=== PATIENT | female | born 1950 | race Caucasian/White ===

== ENCOUNTER 2018-04-02 09:30 | Inpatient (IN) ==
[2018-04-02] MEDS ORDERED: Heparin Drip 25,000 UNIT/250 ML BAG IV.CONT PRN (12:27)
[2018-04-02 16:27] LABS: Activated Partial Thrombo Time 46.9 sec (23.4-31.7); INR 1.1 Ratio; Prothrombin Time 10.7 sec (9.8-11.6)
[2018-04-02 16:52] LABS: Troponin I 8.43 ng/mL (0.02-0.05)
--- NOTE | 2018-04-02 16:54 | P.HPIM ---
History of Present Illness Primary Care Physician: Virgie Kiran Chief Complaint: cp History of Present Illness: 67yo f presents with acute onset of severe stabbing midsternal chest pain that awoke her from a nap after she had eaten some spagetti. It was severe and radiated to her back and left neck and down her left arm with left arm numbness. She was diaphoretic, and nauseated, and she took a lortab, then a zantac thinking it was gerd, and then xanax all without relief. Then she took a hot shower felt better but the pain persisted for almost 2 hours, when she presented to the ER at [facility] and found to have a toponin of 6.[address] elevation on her ekgs. Patient was started on a heparin gtt and case discussed with her sales and catering coordinator, we are asked for admission to cardiac unit. Patient states she has had severe stress due to her sisters critical illness recently, but she denies sal[place], palpitations, le edema, orthopnea or productive cough of late. 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 PMHx : costochondritis, htn, dyslipidemia, anxiety, nonTB lung infection, gerd PSXHX: denies sx SOC HX: smokes 1/2 ppd, denies etoh, FAM HX: moms siblings all of CAD, father of bladder/prostate ca Inpatient Certification Inpatient Certification: I certify that the inpatient services were ordered in accordance with Medicare regulations governing the order. This includes certification that hospital inpatient services are reasonable and necessary and in the case of services not specified as inpatient-only under 42 CFR 419.22(n), that they are appropriately provided as inpatient services in accordance to with the 2-midnight benchmark under 43 CFR 412.3(e) Estimated Total Length of Stay (Days): 2 Plans for Post Hospital Care: Home Review of Systems Review of Systems: all other systems reviewed are negative [facility] Social History Social History Substance History: No History of Abuse Second Hand Smoke Exposure: Yes Smoking Status: Current some day smoker Tobacco Type: Cigarettes How Often Do You Have a Drink Containing Alcohol: Never Immunization History Tetanus Immunization: Never Vaccinated Hx Influenza Vaccine This Season: No Medications and Allergies Allergies Allergy/AdvReac Type Severity Reaction Status Date / Time alcohol Allergy Severe Vomiting Verified 04/02/18 10:03 cephalexin Allergy Severe ANAPHYLAXIS Verified 04/02/18 10:03 Influenza Virus Vaccines Allergy Severe Swelling Verified 04/02/18 10:03 levofloxacin Allergy Severe Hives Verified 04/02/18 10:03 meperidine Allergy Severe Hives Verified 04/02/18 10:03 cyclobenzaprine Allergy Intermediate shaky leg Verified 04/02/18 10:03 [From Flexeril] syndrome loratadine Allergy Mild shaky leg Verified 04/02/18 10:03 syndrome tetanus toxoid, adsorbed Allergy Mild Swelling Verified 04/02/18 15:09 clindamycin Allergy Unknown Hives Verified 04/02/18 15:09 diphtheria, pertussis, Allergy Swelling Verified 04/02/18 10:03 tetanus vacc Iodinated Contrast- Oral and Allergy Burning Verified 04/02/18 10:03 IV Dye loracarbef [From Lorabid] Allergy Anaphylaxis Verified 04/02/18 10:03 Penicillins Allergy Hives Verified 04/02/18 10:03 sertraline [From Zoloft] Allergy Hives Verified 04/02/18 10:03 Sulfa (Sulfonamide Allergy Rash Verified 04/02/18 10:03 Antibiotics) Home Medications Medication Instructions Recorded Confirmed Type alprazolam [Xanax] 1 mg PO QID PRN 04/02/18 04/02/18 History hydrocodone-acetaminophen 1 tab PO QID PRN 04/02/18 04/02/18 History ibuprofen 800 mg PO BID PRN 04/02/18 04/02/18 History lisinopril 20 mg PO DAILY 04/02/18 04/02/18 History metoprolol tartrate 25 mg PO HS 04/02/18 04/02/18 History montelukast 1 tab PO DAILY 04/02/18 04/02/18 History ranitidine HCl [Zantac] 150 mg PO BID 04/02/18 04/02/18 History Active Medications: Active Medications Acetaminophen (Tylenol) 650 mg PO Q4H PRN PRN Reason: Temp > 100.4 Al Hydroxide/Mg Hydroxide (Milk Of Magnesia Liq) 30 ml PO Q12H PRN PRN Reason: Mild Constipation Bisacodyl (Dulcolax Supp) 10 mg RECTAL DAILY PRN PRN Reason: SEVERE CONSITIPATION Heparin Sodium/Dextrose (Heparin/D5w 25,000 U/250 Ml) 25,000 unit in 250 mls @ 0 mls/hr IV.CONT TITRATE PRN; Protocol PRN Reason: Per Protocol Lactulose (Lactulose Liq) 30 ml PO DAILY PRN PRN Reason: SEVERE CONSITIPATION Ondansetron HCl (Zofran Inj) 4 mg IV.PUSH Q6H PRN PRN Reason: NAUSEA OR VOMITING Senna/Docusate Sodium (Serena-Colace) 1 tab PO BID MARYLOU Sennosides (Senokot) 17.2 mg PO Q12H PRN PRN Reason: Moderate Constipation Sodium Chloride (Ns Flush) 2 ml IV.FLUSH BID MARYLOU Sodium Chloride (Ns Flush) 2 ml IV.FLUSH PRN PRN PRN Reason: FLUSH AFTER USING IV ACCESS Physical Exam Vital signs: Last Vital Signs Pulse 58 L 04/02/18 16:00 Pulse Ox 99 04/02/18 13:46 Intake & Output 03/31/18 04/01/18 04/02/18 04/03/18 06:59 06:59 06:59 06:59 Weight 90.5 kg WDWN 67yo w female aaox3 nad, flat affect heent ncat, perr, eomi, sclera anicteric, omm, post pharynx clear neck supple no jvd trachea midline, thyroid smooth not enlarged anterior chest wall no mass min tenderness heart s1s2 reg, bradycardic lungs decreased excurusion and decreased air movment w trace crackles right base , no wheeze, no dullness to percussion back exam no cva tenderness to palpation lymph nodes no inguinal no axillary no cervical lad ext no clubbing cyanosis or edema no calf tenderness, pulses +2 skin no rash, sores or wounds noted, good turgor Caprini VTE Risk Assessment Caprini VTE Risk Assessment: Moderate/High Risk (score >= 2) Caprini Risk Assessment Model: Point Value = 1 Point Value = 2 Point Value = 3 Point Value = 5 Age 41-60 Minor surgery BMI > 25 kg/m2 Swollen legs Varicose veins or History of unexplained or recurrent spontaneous Oral contraceptives or hormone replacement Sepsis (< 1 month) Serious lung disease, including pneumonia (< 1 month) Abnormal pulmonary function Acute myocardial infarction Congestive heart failure (< 1 month) History of inflammatory bowel disease Medical patient at bed rest Age 61-74 Arthroscopic surgery Major open surgery (> 45 min) Laparoscopic surgery (> 45 min) Malignancy Confined to bed (> 72 hours) Immobilizing plaster cast Central venous access Age >= 75 History of VTE Family history of VTE Factor V Leiden Prothrombin [id number] Lupus anticoagulant Anticardiolipin antibodies Elevated serum homocysteine Heparin-induced thrombocytopenia Other congenital or acquired thrombophilia Stroke (< 1 month) Elective arthroplasty Hip, pelvis, or leg fracture Acute spinal cord injury (< 1 month) Prophylaxis Regimen: Total Risk Factor Score Risk Level Prophylaxis Regimen 0-1 Low Early ambulation 2 Moderate Order ONE of the following: *Sequential Compression Device (SCD) *Heparin 5000 units SQ BID 3-4 Higher Order ONE of the following medications: *Heparin 5000 units SQ TID *Enoxaparin/Lovenox 40 mg SQ daily (WT < 150 kg, CrCl > 30 mL/min) *Enoxaparin/Lovenox 30 mg SQ daily (WT < 150 kg, CrCl > 10-29 mL/min) *Enoxaparin/Lovenox 30 mg SQ BID (WT < 150 kg, CrCl > 30 mL/min) AND/OR *Sequential Compression Device (SCD) 5 or more Highest Order ONE of the following medications: *Heparin 5000 units SQ TID (Preferred with Epidurals) *Enoxaparin/Lovenox 40 mg SQ daily (WT < 150 kg, CrCl > 30 mL/min) *Enoxaparin/Lovenox 30 mg SQ daily (WT < 150 kg, CrCl > 10-29 mL/min) *Enoxaparin/Lovenox 30 mg SQ BID (WT < 150 kg, CrCl > 30 mL/min) AND *Sequential Compression Device (SCD) Assessment and Plan Plan ACS w NSTEMI - admit, asa, bb as tolerated hold for bradycardia, heparin gtt per protocol, statin and tele monitoring, cardiology consult, prob cath, fu echo, fasting lipids am HTN - cont lili NON TB lung infection - chronic not on tx currently fu w pulmonology GERD - zantac FIBROMYALGIA - pain control as tolerated TOBACCO ABUSE/NICOTINE ADDICTION - cessation couseling and nicoderm prn when stable. OBESITY - bmi 34 - outpt fu when stable dvt prophylaxis - heparin gtt dispo- cic, pending clinical course H&P: Quality VTE Deep Vein Thrombosis/Pulmonary Embolism Present on Admission: No
[2018-04-02 17:05] LABS: Creatine Kinase MB 40.8 ng/mL (0.5-3.6)
[2018-04-02 17:09] LABS: CKMB Percent 7.3 % (0.0-4.0)
[2018-04-02] MEDS ORDERED: Heparin/NS PF Inj 1,000 ML ONE (17:38)
[2018-04-02] MEDS ORDERED: Lidocaine PF 1% Inj 30 ML Vial ONE (17:39)
[2018-04-02] MEDS ORDERED: fentaNYL Citrate Inj 100 MCG/2 ML Ampul ONE (17:39)
[2018-04-02] MEDS ORDERED: Heparin 10,000 UNITS/10 ML Vial (for IV use) ONE (17:39)
[2018-04-02] MEDS ORDERED: Hydrocortisone Sod Succinate 100 MG Vial ONE (17:39)
[2018-04-02] MEDS ORDERED: Famotidine PF Inj 20 MG/2 ML Vial ONE (17:39)
[2018-04-02] MEDS ORDERED: Iohexol 350 MG/ML 50 ML Vial (for Cath Lab) IVCONTRAST ONE (18:00)
--- NOTE | 2018-04-02 18:36 | CATHPROC ---
[facility] HIS Report Study Information Study Number Admission Scheduled Start Study Start [id number] Apr 02 2018 3:25PM 04/02/2018 Apr 02 2018 5:20PM [place] [facility] Cardiac Catheterization Admit Source Facility Department Other [facility] Physician and Clinical Staff Initial Gary Morales [employer] Mady Esquivel,RN Recorder Ana Noyola,RT(R) Scrub Bharati Whitaker,RAFIQ TECH2 Procedures Performed Procedure Location (Site) Vessel Name Coronary Angiograms LCA Left Coronary Coronary Angiograms RCA Right Coronary L Heart Cath Wire insertion Radial (right) Radial Art. Equipment Time Assistant Teaching Professor Description Size Mfg Part Number Used/Scraped TRANSDUCER, TRUWAVE [id number] 18:05 [employer] MIRELES * Used W/STOCKCOCK *[id number] *[id number] *[id number] *[id number] 18:05 [employer] BLANKET,WARM AIR CCL * Used *[id number] 18:05 [employer] PACK, CCL CUSTOM * Used *[id number] 18:05 [employer] SUPPORT, ARTERIAL ADULT [id number] *[id number] Used BAND, RADIAL COMPRESSION TR [id number] 18:15 [employer] 24CM Used SHORT 24 *[id number] 18:05 [employer] WIRE, EXCHANGE 260CM 3MMJ 260CM Used *[id number] 18:05 NAMIC MANIFOLD, 4 PORT * Used *[id number] 18:05 [employer] OMNIPAQUE, 350 MG, 150ML 150ML [id number] Used SHEATH, FR6 TRANSRADIAL [id number] 18:05 [employer] MEDICAL FR 6 Used SLENDER 10CM *[id number] History: Current Medications Medication Dosage/Unit Route Frequency Last Date/Time Taken Beta Rusty LISINOPRIL HEPARIN History: Allergies Allergy Reaction Influenza Virus Vaccines Swelling alcohol Vomiting cephalexin ANAPHYLAXIS clindamycin Hives tetanus toxoid, adsorbed Swelling loratadine shaky leg syndrome meperidine Hives penicillin G levofloxacin Hives LORABID Iodinated Contrast- Oral and IV Burning Dye Penicillins Hives Sulfa (Sulfonamide Antibiotics) Rash diphtheria, pertussis, tetanus Swelling vacc loracarbef Anaphylaxis sertraline Hives cyclobenzaprine shaky leg syndrome History: Risk Factors Family History of Hypertension Dyslipidemia Previous CT Previous Heart Failure Premature CAD Yes No Yes No No Prior Valve Prior PCI Prior CABG Surgery No No No Cerebrovascular Peripheral Artery Chronic Lung On Dialysis Diabetes Disease Disease Disease No No No No No History: Symptoms/Diagnosis Selection Items Chest pain SOB History: Stress Tests Stress or Imaging Studies Performed Yes Standard Exercise Stress Test No Stress Echo No Stress Test SPECT Stress Test SPECT Result Stress Test SPECT Ischemia Risk/Extent Yes Positive Intermediate Stress Test CMR No Cardiac CTA Coronary Calcium Score No No History: Other Disease Selection Items HTN History: Other Current Smoker Method Yes Cigarettes Labs Hgb (g/dl) Hct (%) WBC (l/cumm) Platelets (thousands) 11.60-17.00 35.00-51.00 4.00-11.00 150.00-450.00 15.4 48.2 10.8 223 Glucose (mg/dl) BUN (mg/dl) Creatinine (mg/dl) BUN:Creatinine (1:x) 74.00-106.00 7.00-18.00 0.50-1.30 10.00-20.00 79 12 0.7 17.1 Na (meq/l) K (meq/l) 136.00-145.00 3.50-5.10 143 4.1 INR (PTT:PT) 0.90-1.10 1 Troponin I (ng/ml) CPK-MB (ng/ML) 0.02-0.05 0.50-3.60 8.43 53.2 Medication Medication Total Dose (Bolus/Oral) Medication Total Dosage/Unit 1% XYLOCAINE 20 mL BENADRYL 25 mg FENTANYL 100 mcg OXYGEN 2 l/min PEPCID 20 mg RADIAL COCKTAIL 5 mL (Bolus) SOLU-CORTEF 100 mg VERSED 1 mg Medications (Bolus/Oral) Medication Time Given Dosage/Unit Administered By Reason PEPCID 04/02/2018 5:44:36 PM 20 mg Adamy, Mady 20 mg PEPCID given by Mady Esquivel RN in Right Antecubital via Peripheral IV. BENADRYL 04/02/2018 5:45:37 PM 25 mg Adamy, Mady 25 mg BENADRYL given by Mady Esquivel, JON in Right Antecubital via Peripheral IV. SOLU-CORTEF 04/02/2018 5:46:01 PM 100 mg Adamy, Mady 100 mg SOLU-CORTEF given by Mady Esquivel RN in Right Antecubital via Peripheral IV. FENTANYL 04/02/2018 5:55:23 PM 50 mcg Mady Esquivel 50 mcg FENTANYL given by Mady Esquivel RN via Peripheral IV. 1% XYLOCAINE 04/02/2018 6:00:18 PM 20 mL Gary Ramos 20 mL 1% XYLOCAINE given by Gary Ramos in Right Radial via Subcutaneous. VERSED 04/02/2018 6:00:51 PM 1 mg Mady Esquivel 1 mg VERSED given by Mady Esquivel RN via Peripheral IV. FENTANYL 04/02/2018 6:01:03 PM 50 mcg Mady Esquivel 50 mcg FENTANYL given by Mady Esquivel RN via Peripheral IV. Ntg 200mcg Verapamil 2.5mg Heparin RADIAL COCKTAIL 04/02/2018 6:05:21 PM 5 mL (Bolus) Mady Esquivel 2000U 5 mL (Bolus) RADIAL COCKTAIL given by Mady Esquivel RN via Radial. Using [Solution Name]. Reason: Ntg 200mcg Verapamil . 3600 heparin OXYGEN 04/02/2018 6:06:24 PM 2 l/min Mady Esquivel 2 l/min OXYGEN given by Mady Esquivel RN via Nasal. Medication (Drip) Medication Time Given Dosage/Unit Concentration/Unit Diluent (ml) Solution IV Solutions 04/02/2018 5:38:05 PM 0 mL (IV) 500 NaCl .9 IV Solutions given by Mady Esquivel RN in Right Antecubital via Peripheral IV. Pump/Drip Flow = 20 ml/hr using NaCl .9. Initial Case Assessment Initial Case Assessment Cardiovascular HR Rhythm NIBP 65 reg 144/79 Edema Present Skin color Skin None Normal Warm Circulatory - Right Pulses Dorsalis Pedis Femoral Radial 2 2 2 Scale (0,1,2,3,4,d) Scale (0,1,2,3,4,d) Circulatory - Lower Extremities Color Lower Right Normal Neurological State Oriented to time-place- Alert Moves all extremities person Respiration - General Respiration Rate SpO2 (%) (B/min) 10 98 Final Case Assessment Cardiovascular HR Rhythm NIBP 62 reg 116/71 Edema Present Skin color Skin None Normal Warm Circulatory - Right Pulses Dorsalis Pedis Femoral Radial 2 2 2 Scale (0,1,2,3,4,d) Scale (0,1,2,3,4,d) Circulatory - Lower Extremities Color Lower Right Normal Neurological State Oriented to time-place- Alert Moves all extremities person Respiration - General Respiration Rate SpO2 (%) O2 (lpm) (B/min) 10 98 2 Chronological Log Time Study Chronological Log 17:30:51 Patient arrived via Bed. 17:37:56 Patient Name, D.O.B, / Armband Verified By R.N. 17:37:57 Consent signed by the physician and the patient and verified by the [facility] staff. 17:37:58 Pre-op and post- op instructions given; patient acknowledges understanding of instructions. 17:37:59 Verbal Stimulation=2 Physical Stimulation=2 Airway=2 Respiration=2 TOTAL=8. (0=absent, 1=li mited, 2=present) 17:38:00 Allens test performed on the right radial and ulnar artery. 17:38:01 Patient has been NPO for Less than 6Hrs. 17:38:02 Skin Breakdown-none 17:38:03 Patient Warmer Placed on the Table. 17:38:04 A # 20 IV was noted in the Antecubital (right). Grade = 0 IV Solutions given by Mady Esquivel RN in Right Antecubital via Peripheral IV. Pump/Drip Remy w = 20 ml/hr using NaCl 17:38:05 .9. 17:38:07 History and physical on the chart or being dictated. 17:38:08 Assessment: Initial Case Vitals capture started with the following parameters, Patient=Adult, Interval=5 min, Initial Pr yrrgvi=998 mmHg, 17:38:10 Deflation Rate=5 mmHg, Cuff placed on left Arm 17:39:01 HR=65 bpm, IFUZ=064/77 mmhg, SpO2=97.0 %, Resp=9 B/min, Pain=0, Antony=10, Villasenor=2 17:44:02 HR=66 bpm, UCOA=860/79 mmhg, SpO2=97.0 %, Resp=9 B/min, Pain=0, Antony=10, Villasenor=2 17:44:36 20 mg PEPCID given by Mady Esquivel, JON in Right Antecubital via Peripheral IV. Assessment: Initial Case, HR=65 BPM, Rhythm=reg, MXRA=818/79 mmhg, Edema=None, Color=Normal, Sk in = Warm Right Pulses: [place] Ped=2, Femoral=2, Radial=2 17:44:45 Lower Right Extremities: Color=Normal Neurological: State=Alert, Ox3, MIRAMONTES Respiration: Resp=10 B/min, SpO2=98 % 17:45:00 Reference ECG taken 17:45:09 MD arrived. 17:45:37 25 mg BENADRYL given by Mady Esquivel, RN in Right Antecubital via Peripheral IV. 17:46:01 100 mg SOLU-CORTEF given by Mady Esquivel, RN in Right Antecubital via Peripheral IV. 17:49:01 HR=68 bpm, VNRP=989/73 mmhg, SpO2=98.0 %, Resp=15 B/min, Pain=0, Antony=10, Villasenor=2 17:49:17 Right Radial and groin(s) prepped with 2% chlorhexidine, and draped after a 3 min. waiting time. 17:54:03 HR=64 bpm, SQUA=726/111 mmhg, SpO2=98.0 %, Resp=14 B/min, Pain=0, Antony=10, Villasenor=2 17:54:14 Pressure channel 1 zeroed. 17:55:23 50 mcg FENTANYL given by Mady Esquivel, RN via Peripheral IV. Time Out. Correct patient, correct procedure, correct physician, labs, allergies, and equipment verified with photo lab specialist 17:58:31 team present. Fire risk assesment completed (see hard stop sheet for coding). Time Out Conc urred by and individual staff in procedure. 17:58:46 Case Start 17:58:48 Verbal Stimulation=2 Physical Stimulation=2 Airway=2 Respiration=2 TOTAL=8. (0=absent, 1=li mited, 2=present) 17:59:02 HR=62 bpm, FWBG=025/81 mmhg, SpO2=97.0 %, Resp=17 B/min, Pain=0, Antony=10, Villasenor=2 18:00:18 20 mL 1% XYLOCAINE given by Gary Ramos in Right Radial via Subcutaneous. 18:00:51 1 mg VERSED given by Mady Esquivel RN via Peripheral IV. 18:01:03 50 mcg FENTANYL given by Mady Esquivel RN via Peripheral IV. 18:03:54 HR=61 bpm, ESIK=281/69 mmhg, SpO2=92.0 %, Resp=18 B/min, Pain=0, Antony=10, Villasenor=2 18:04:41 Access site was Right Radial Artery . 18:04:46 A wire was inserted via Radial (right). A SHEATH, FR6 TRANSRADIAL SLENDER 10CM FR 6 was advanced into the Radial (right) using the Perc utaneous 18:04:55 technique. 5 mL (Bolus) RADIAL COCKTAIL given by Mady Esquivel RN via Radial. Using [Solution Name]. Re ason: Ntg 200mcg 18:05:21 Verapamil . 3600 heparin 18:06:24 2 l/min OXYGEN given by Mady Esquivel RN via Nasal. A JR 4.0 INFINITI CATHETER FR 5 was advanced over a wire. OMNIPAQUE, 350 MG, 150ML 150ML was us ed for 18:06:25 injections. Recorded Pressure: LV, HR=67, Condition=Condition 1 18:07:40 (Left Ventricle) LV 111/9/17 Recorded Pressure: LV, Ao, HR=64, Condition=Condition 1 18:07:52 (Left Ventricle) LV 110/10/19, (Aorta) Ao 104/56/77 18:08:46 The RCA was injected and visualized at various angles. OMNIPAQUE, 350 MG, 150ML 150ML used . Recorded Pressure: Ao, HR=64, Condition=Condition 1 18:08:52 (Aorta) Ao 94/57/73 18:08:53 HR=63 bpm, FABV=714/50 mmhg, SpO2=91.0 %, Resp=11 B/min, Pain=0, Antony=10, Villasenor=2 After removing the current catheter a JL 3.5 INFINITI CATHETER FR 5 was advanced over a WIRE, E XCHANGE 260CM 18:10:12 3MMJ 260CM. 18:11:32 The LCA was injected and visualized at various angles. OMNIPAQUE, 350 MG, 150ML 150ML used . 18:13:48 Catheter was removed 18:13:55 HR=66 bpm, MHPQ=716/62 mmhg, SpO2=93 %, Resp=12 B/min, Pain=0, Antony=10, Villasenor=2 18:18:52 HR=63 bpm, JWNG=559/71 mmhg, SpO2=97.0 %, Resp=12 B/min, Pain=0, Antony=10, Villasenor=2 18:19:09 Case End (Physician broke scrub) Assessment: Final Case, HR=62 BPM, Rhythm=reg, NIST=593/71 mmhg, Edema=None, Color=Normal, Sk in = Warm Right Pulses: [place] Ped=2, Femoral=2, Radial=2 18:19:11 Lower Right Extremities: Color=Normal Neurological: State=Alert, Ox3, MIRAMONTES Respiration: Resp=10 B/min, SpO2=98 %, O2=2 lpm 18:22:17 Catheter(s) removed without difficulty Radial Compression Device Used. 11 mLs of air placed in BAND, RADIAL COMPRESSION TR SHORT 24 24CM. Affected 18:22:19 hand 98 % O2 saturation. 18:22:34 Sterile dressing applied to site 18:22:35 No case complications noted. 18:22:36 Cine recording checked. 18:22:36 Bedside Report will be given. 18:22:40 A Left Heart Cath was performed. 18:22:45 Clinical correlaton risk stratification. 18:23:55 HR=61 bpm, WJXE=965/70 mmhg, Resp=13 B/min 18:28:58 HR=69 bpm, MICI=158/70 mmhg, Resp=17 B/min, Pain=0, Antony=10, Villasenor=2 18:33:59 HR=61 bpm, IHKD=457/69 mmhg, Resp=17 B/min, Pain=0, Antony=10, Villasenor=2 End Study - Contrast Media Used In Study Contrast Total Opened (mL) Total Used (mL) Total Wasted (mL) Omnipaque 350 30 30 0 End Study - Maximum Contrast Load Max Contrast Load (mL) 646.4 End Study - Radiation Exposure Fluoro Time Fluoro Dose (mGy) Cine Dose (uGym2) (minutes) 1.3 663 [id number] End Study - Sheaths Sheaths Pulled By Sheath Hold Time (min) Bharati Whitaker End Study - Patient Disposition Complications Transferred To No Critical Care Bed
[2018-04-02] MEDS ORDERED: Metoprolol Tartrate 25 MG Tablet PO SCH (21:00)
[2018-04-02] MEDS: Famotidine 20 MG Tablet PO SCH (21:42)
[2018-04-02] MEDS: Metoprolol Tartrate 25 MG Tablet PO SCH (21:43)
[2018-04-02] MEDS: Senna/Docusate Sodium 8.6/50 MG Tablet PO SCH (21:46)
[2018-04-02 23:24] LABS: Troponin I 5.47 ng/mL (0.02-0.05)
[2018-04-02 23:37] LABS: Creatine Kinase MB 30.3 ng/mL (0.5-3.6)
[2018-04-02 23:45] LABS: CKMB Percent 6.3 % (0.0-4.0)
[2018-04-03] MEDS: Heparin Drip 25,000 UNIT/250 ML BAG IV.CONT PRN ×2 (01:48→22:45)
--- NOTE | 2018-04-03 03:40 | MB ---
cc: Gary Ramos DO DATE: 04/02/2018 REASON FOR CONSULTATION: Chest pain. HISTORY OF PRESENT ILLNESS: Linda Chaudhary is a pleasant 67-year-old female who sees my partner, Dr. Wylie, in the office and presented to [facility] Emergency Room due to chest pain. She had onset of acute, severe, stabbing midsternal chest pain that woke her up from a nap after she had eaten some spaghetti. It was severe and radiated to the left side of her neck and down her left arm, including left arm numbness. She was diaphoretic and nauseated at the time. She took a Lortab, then a Zantac, without relief. She took a hot shower, which made her feel better, but the pain persisted for almost 2 hours and so she presented to the emergency room. She was found to have an elevated troponin of 6.21 and was started on a heparin drip. She was transferred to [facility] for consideration of cardiac catheterization. She previously had a stress test and echo in our office in December with the stress test showing no ischemia. PAST MEDICAL HISTORY: 1. Costochondritis. 2. Hypertension. 3. Dyslipidemia. 4. Anxiety. 5. Gastroesophageal reflux disease. PAST SURGICAL HISTORY: Denies. ALLERGIES: IODINE, PENICILLIN, SULFA, ALCOHOL, CEPHALEXIN, CLINDAMYCIN, TETANUS TOXOID, DIPHTHERIA PERTUSSIS TETANUS VACCINE, LORACARBEF, LORATADINE, ZOLOFT, MEPERIDINE, FLEXERIL, LEVOFLOXACIN. MEDICATIONS: 1. Lisinopril 20 mg daily. 2. Hydrocodone/acetaminophen 10/325 mg every 6 hours as needed. 3. Ibuprofen 800 mg b.i.d. as needed. 4. Xanax 1 mg 4 times a day as needed. 5. Metoprolol tartrate 25 mg every night. 6. Ranitidine 150 mg b.i.d. 7. Montelukast 10 mg daily. FAMILY HISTORY: Multiple people have had premature coronary artery disease within the family. SOCIAL HISTORY: The patient smokes half a pack of cigarettes a day. Denies alcohol. REVIEW OF SYSTEMS: Fourteen systems were reviewed including osteopathic. Pertinent positives and negatives above, otherwise negative. PHYSICAL EXAMINATION: VITAL SIGNS: Temperature 98.4, heart rate 61, blood pressure 112/55, respirations 17, pulse ox 99% on 1.5 liters. GENERAL: The patient appears well, in no acute distress, alert, awake and oriented x 3. HEENT: Extraocular muscles intact. Mucous membranes moist. NECK: Supple. No JVD at 45 degrees. No carotid bruits heard bilaterally. Carotid upstroke is brisk in nature. HEART: Regular rate and rhythm. Positive first and second heart sounds with no noted murmurs, gallops or rubs. LUNGS: Clear to auscultation bilaterally. No wheezes, rales or rhonchi. ABDOMEN: Soft, nontender, nondistended. No organomegaly noted. EXTREMITIES: Show no clubbing, cyanosis or edema. Femoral and distal pulses intact bilaterally. NEUROLOGIC: No focal deficits. SKIN: Warm, dry and intact. OSTEOPATHIC: No kyphoscoliosis or lordosis. LABORATORY DATA: Hemoglobin 15.4, hematocrit 48.2, platelets 223. Potassium 4.1, BUN 12, creatinine 0.7. Troponin 8.43. Electrocardiogram (04/02/2018 at 10:37): Sinus rhythm, first-degree AV block, nondiagnostic Q-waves inferiorly. IMPRESSIONS: 1. Non-ST elevation myocardial infarction. 2. Chest pain concerning for coronary insufficiency. 3. Obesity with a body mass index of 34.2. 4. Tobacco abuse. RECOMMENDATIONS: 1. Ms. Chaudhary presented with chest pain, which is not typical for coronary insufficiency, but definitely concerning as it radiated to her left side of her neck and down her left arm with numbness. Her troponins are elevated. 2. Because of this, she will be recommended cardiac catheterization. Risks, benefits and alternatives were discussed with her and her son. 3. We will check a 2-D echo to look at her overall left ventricular function, cardiac structure and possible valvulopathies. 4. Further recommendations will be made after coronary visualization. 5. I spoke to her for greater than 3 minutes about tobacco cessation. Thank you for allowing me to see Linda Chaudhary. If there are any questions, please do not hesitate to call. Gary Ramos, DO RUCKER/aiden/emory , 02:00 AM , 02:10 AM
--- NOTE | 2018-04-03 04:11 | MA ---
cc: Gary Ramos DO DATE: 04/02/2018 PROCEDURE: Left heart catheterization, coronary angiogram, moderate sedation 20 minutes. PREPROCEDURE DIAGNOSES: Non-ST elevation myocardial infarction, chest pain concerning for coronary insufficiency. POSTPROCEDURE DIAGNOSES: Multivessel coronary artery disease for consideration of coronary artery bypass grafting. MEDICATIONS: Solu-Cortef 100 mg, Pepcid 20 mg, Benadryl 25 mg, fentanyl 100 mcg, Versed 1 mg, verapamil 2.5 mg, nitro 200 mcg, heparin 3600 units. CONTRAST USED: 20 mL. FLUOROSCOPY: 1.3 minutes. MODERATE SEDATION: 20 minutes. FRAILTY SCORE: 4. ESTIMATED BLOOD LOSS: 10 mL. PROCEDURAL SUMMARY: Linda Chaudhary is a pleasant 67-year-old female who sees my partner, Dr. Wylie, in the office and presented to [facility] Emergency Room due to chest pain. She was found to have an elevated troponin and transferred to [facility] for consideration of cardiac catheterization. Risks, benefits and alternatives were explained to her and she consented as such. She was brought to the lab and prepped in the usual sterile fashion. She was given medications for her contrast allergy. Right radial artery was accessed using modified Seldinger technique and placement of a Georgian slender sheath. This was easily aspirated and flushed. A JR4 was advanced over a J-wire to the ascending aorta and across the aortic valve for measurement of left ventricular pressure. This back across the aortic valve showing no significant gradient of aortic stenosis. JR4 was used for selective angiography of the right coronary artery system. This is exchanged out for a JL3.5, which was used for selective angiography of the left coronary artery system. JL3.5 was removed over a J wire. A radial band was placed over the arteriotomy site for hemostasis. The patient left the photonic laboratory technician cardiovascularly stable. FINDINGS: LEFT MAIN: Normal size vessel with adequate reflux. It trifurcates into an LAD, ramus and circumflex. LAD: Moderate size vessel with a 95% ostial stenosis. In the mid portion, there is a 90% stenosis. Distally, has no significant disease. It gives off 1 small diagonal with no significant disease. LEFT CIRCUMFLEX: Moderate size vessel with a 95% stenosis in the ostial portion. Distally it supplies one obtuse marginal with no significant disease. RAMUS: Moderate size vessel with 30% disease in the mid portion. RCA: Is 100% occluded in the proximal portion. It receives left to right collaterals, which fills the distal posterior descending and posterior lateral vessel. LVEDP: 17. IMPRESSION: 1. Non-ST elevation myocardial infarction. 2. Multivessel coronary artery disease. RECOMMENDATIONS: 1. Ms. Chaudhary presented with chest pain and was found to have an elevated troponin. 2. During cardiac catheterization, she was found to have multivessel disease with ostial LAD, ostial circumflex and an occluded RCA with left to right collaterals. 3. She will be recommended coronary artery bypass grafting and will be seen by CT surgery in the morning. 4. She will be placed back on a heparin drip 1 hour after TR band is removed. 5. We will plan to recheck a 2-D echo to evaluate her overall left ventricular function, cardiac structure and possible valvulopathies. 6. Lisinopril will be held in anticipation of open heart surgery. 7. We will change her beta florian to 12.5 mg b.i.d. 8. Further recommendations will be made based on the hospital course. Thank you for allowing me to see Linda Chaudhary. If there are any questions, please do not hesitate to call. Gary Ramos DO VGP/rw , 03:20 AM , 03:31 AM
[2018-04-03 05:35] LABS: Hematocrit 43.7 % (35.0-46.0); Hemoglobin 14.8 gm/dL (11.6-15.3); Mean Corpuscular HGB Conc 33.8 % (32.0-36.0); Mean Corpuscular Hemoglobin 31.7 pg (27.0-34.0); Mean Corpuscular Volume 93.8 fL (80.0-100.0); Mean Platelet Volume 7.9 fL (7.0-11.0); Platelet Count 206 th/mm3 (150-450); Red Blood Count 4.66 mil/mm3 (4.00-5.30); Red Cell Distribution Width 13.8 % (11.6-17.2); White Blood Count 11.4 th/mm3 (4.0-11.0)
[2018-04-03 06:02] LABS: Calcium 8.3 mg/dL (8.5-10.1); Carbon Dioxide 27.6 meq/L (21.0-32.0); Potassium 4.1 meq/L (3.5-5.1)
[2018-04-03 06:05] LABS: Chol/HDL Ratio 5.17 Ratio; HDL Cholesterol 36.3 mg/dL (40.0-60.0)
[2018-04-03] MEDS ORDERED: Heparin 10,000 UNITS/10 ML Vial (for IV use) IV.PUSH PRN (06:54)
--- NOTE | 2018-04-03 07:42 | P.PNIM ---
Subjective Interval history: Patient is status post heart catheterization earlier this morning. Patient denies any chest pain or shortness of breath. She is unhappy about her room location. She has some anxiety about possible upcoming heart surgery. Physical Exam Vital signs: Last Vital Signs Temp 98.1 F 04/02/18 23:00 Pulse 62 04/03/18 02:00 Resp 16 04/03/18 06:23 BP 123/79 04/02/18 23:00 Pulse Ox 97 04/02/18 23:00 Intake & Output 04/01/18 04/02/18 04/03/18 04/04/18 06:59 06:59 06:59 06:59 Weight 90.5 kg Narrative: GENERAL: This is a well-nourished, well-developed patient, in no apparent distress. CARDIOVASCULAR: Normal rate and regular rhythm without murmurs, gallops, or rubs. RESPIRATORY: Good respiratory efforts. Breath sounds equal and clear to auscultation bilaterally. GASTROINTESTINAL: Abdomen soft, non-tender, non-distended. Normal active bowel sounds MUSCULOSKELETAL: Extremities without cyanosis, or edema. NEURO: Alert & Oriented x4 to person, place, time, situation. Moves all ext x4 PSYCH: Some anxiety about possible upcoming heart surgery. Results Labs CBC & Chem 7: 04/03/18 05:24 04/03/18 05:24 Assessment and Plan Plan 67-year-old female admitted for N STEMI. Patient underwent heart catheterization which revealed multivessel coronary artery disease. CT surgery consulted to consider CABG. NSTEMI: -Status post heart cath which revealed multivessel disease -CT surgery consulted for CABG - Continue heparin drip, statin beta-florian, -Echo pending HTN -hold lisinopril in anticipation for CABG. Continue beta-florian. Continue to monitor BP GERD - zantac FIBROMYALGIA - pain control TOBACCO ABUSE/NICOTINE ADDICTION - cessation couseling and nicoderm prn when stable. OBESITY - bmi 34 -recommend diet and weight loss. Anxiety about current medical condition: More than 30 minutes spent with the patient addressing her concerns about nursing care, room location, and usual course of treatment for patients requiring CABG. dvt prophylaxis - heparin gtt Progress Note: Quality VTE Deep Vein Thrombosis/Pulmonary Embolism Present on Admission: No
[2018-04-03] MEDS ORDERED: Lisinopril 20 MG Tablet PO SCH (09:00)
[2018-04-03] MEDS: Famotidine 20 MG Tablet PO SCH ×2 (09:18→20:05)
[2018-04-03] MEDS: Montelukast 10 MG Tablet PO SCH (09:18)
[2018-04-03] MEDS: Heparin 10,000 UNITS/10 ML Vial (for IV use) IV.PUSH PRN (11:17)
--- NOTE | 2018-04-03 13:12 | P.CON ---
History of Present Illness Service: Cardiothoracic surgery Consult date: 04/03/18 Requesting Physician: Gary Ramos Reason for Consult: Coronary artery disease Primary Care Provider: Virgie Kiran Chief Complaint: Chest pain History of Present Illness: Very pleasant 67-year-old female presenting with new onset chest pain described as a pressure sensation. Patient was seen and evaluated emergency department and admitted with the primary diagnosis of acute myocardial infarction (NSTEMI ) . She subsequent underwent a coronary angiogram which reveals multivessel coronary artery disease. I am now being consulted for surgical revascularization therapy. At the present time she remains pain-free, hemodynamically stable with no evidence of ongoing ischemia. Review of Systems All other systems reviewed negative except as stated in HPI [facility] - History History Provided By: Patient - Medical History Medical History: Medical History (Last Reviewed 04/02/18 @ 14:11 by Aruna Ritchie RN) Arthritis Fibromyalgia GERD (gastroesophageal reflux disease) Hypertension Non-tuberculous bronchiectasis Seasonal allergies - Surgical History Surgical History: Surgical History (Last Reviewed 04/02/18 @ 14:11 by Aruna Ritchie RN) History of exploratory laparotomy - Tobacco History Second Hand Smoke Exposure: Yes Tobacco Use In Past 30 Days: Yes Smoking Status: Current some day smoker Tobacco Type: Cigarettes - Alcohol History How Often Do You Have a Drink Containing Alcohol: Never - Substance Use History Substance History: No History of Abuse - Immunization History Tetanus Immunization: Never Vaccinated Hx Influenza Vaccine This Season: No Medications and Allergies Active Medications: Active Medications Acetaminophen (Tylenol) 650 mg PO Q4H PRN PRN Reason: Temp > 100.4 Hydrocodone Bitart/Acetaminophen ([place] 10/325) 1 tab PO QID PRN PRN Reason: PAIN SCALE 1 TO 10 Last Admin: 04/03/18 06:23 Dose: 1 tab Al Hydroxide/Mg Hydroxide (Milk Of Magncarl Liq) 30 ml PO Q12H PRN PRN Reason: Mild Constipation Albuterol (Ventolin Hfa Inh) 2 puff INH Q4H PRN PRN Reason: SHORTNESS OF BREATH Alprazolam (Xanax) 1 mg PO QID PRN PRN Reason: Anxiety Last Admin: 04/03/18 06:22 Dose: 1 mg Aspirin (Ecotrin) 81 mg PO DAILY MARYLOU Last Admin: 04/03/18 09:23 Dose: 81 mg Bisacodyl (Dulcolax Supp) 10 mg RECTAL DAILY PRN PRN Reason: SEVERE CONSITIPATION Famotidine (Pepcid) 20 mg PO BID [facility] Last Admin: 04/03/18 09:18 Dose: 20 mg Heparin Sodium (Porcine) (Heparin Inj) 2,500 units IV.PUSH UNSCH PRN PRN Reason: aPTT 25-39 Last Admin: 04/03/18 11:17 Dose: 2,500 units Heparin Sodium (Porcine) (Heparin Inj) 5,000 units IV.PUSH UNSCH PRN PRN Reason: aPTT < 25 Heparin Sodium/Dextrose (Heparin/D5w 25,000 U/250 Ml) 25,000 unit in 250 mls @ 0 mls/hr IV.CONT TITRATE PRN; Protocol PRN Reason: Per Protocol Last Titration: 04/03/18 11:09 Dose: 1,100 units/hr, 11 mls/hr Lactulose (Lactulose Liq) 30 ml PO DAILY PRN PRN Reason: SEVERE CONSITIPATION Metoprolol Tartrate (Lopressor) 12.5 mg PO BID [facility] Last Admin: 04/02/18 21:43 Dose: 12.5 mg Miscellaneous (Pill Splitter) 1 each OTHER UNSCH PRN PRN Reason: SEE LABEL COMMENTS Montelukast Sodium (Singulair) 10 mg PO DAILY [facility] Last Admin: 04/03/18 09:18 Dose: 10 mg Ondansetron HCl (Zofran Inj) 4 mg IV.PUSH Q6H PRN PRN Reason: NAUSEA OR VOMITING Senna/Docusate Sodium (Serena-Colace) 1 tab PO BID [facility] Last Admin: 04/02/18 21:46 Dose: 1 tab Sennosides (Senokot) 17.2 mg PO Q12H PRN PRN Reason: Moderate Constipation Sodium Chloride (Ns Flush) 2 ml IV.FLUSH BID [facility] Last Admin: 04/03/18 09:19 Dose: Not Given Sodium Chloride (Ns Flush) 2 ml IV.FLUSH PRN PRN PRN Reason: FLUSH AFTER USING IV ACCESS Allergies Allergy/AdvReac Type Severity Reaction Status Date / Time alcohol Allergy Severe Vomiting Verified 04/02/18 10:03 cephalexin Allergy Severe ANAPHYLAXIS Verified 04/02/18 10:03 Influenza Virus Vaccines Allergy Severe Swelling Verified 04/02/18 10:03 levofloxacin Allergy Severe Hives Verified 04/02/18 10:03 meperidine Allergy Severe Hives Verified 04/02/18 10:03 cyclobenzaprine Allergy Intermediate shaky leg Verified 04/02/18 10:03 [From Flexeril] syndrome loratadine Allergy Mild shaky leg Verified 04/02/18 10:03 syndrome tetanus toxoid, adsorbed Allergy Mild Swelling Verified 04/02/18 15:09 clindamycin Allergy Unknown Hives Verified 04/02/18 15:09 diphtheria, pertussis, Allergy Swelling Verified 04/02/18 10:03 tetanus vacc Iodinated Contrast- Oral and Allergy Burning Verified 04/02/18 10:03 IV Dye loracarbef [From Lorabid] Allergy Anaphylaxis Verified 04/02/18 10:03 Penicillins Allergy Hives Verified 04/02/18 10:03 sertraline [From Zoloft] Allergy Hives Verified 04/02/18 10:03 Sulfa (Sulfonamide Allergy Rash Verified 04/02/18 10:03 Antibiotics) Home Medications Medication Instructions Recorded Confirmed Type alprazolam [Xanax] 1 mg PO QID PRN 04/02/18 04/02/18 History hydrocodone-acetaminophen 1 tab PO QID PRN 04/02/18 04/02/18 History ibuprofen 800 mg PO BID PRN 04/02/18 04/02/18 History lisinopril 20 mg PO DAILY 04/02/18 04/02/18 History metoprolol tartrate 25 mg PO HS 04/02/18 04/02/18 History montelukast 1 tab PO DAILY 04/02/18 04/02/18 History ranitidine HCl [Zantac] 150 mg PO BID 04/02/18 04/02/18 History Physical Exam Vital signs: Vital Signs 04/02/18 13:46 04/02/18 14:00 04/02/18 15:00 Temperature 98.4 F Pulse Rate 61 54 L Respiratory Rate 17 17 Blood Pressure 112/55 L Pulse Oximetry 99 99 98 04/02/18 16:00 04/02/18 17:00 04/02/18 19:00 Temperature Pulse Rate 58 L 63 61 Respiratory Rate 18 17 Blood Pressure 121/68 Pulse Oximetry 97 98 04/02/18 20:00 04/02/18 21:46 04/02/18 22:00 Temperature 97.6 F Pulse Rate 60 68 Respiratory Rate 16 16 Blood Pressure 116/56 L Pulse Oximetry 97 04/02/18 23:00 04/03/18 00:00 04/03/18 01:00 Temperature 98.1 F Pulse Rate 66 72 66 Respiratory Rate 16 16 Blood Pressure 123/79 Pulse Oximetry 97 04/03/18 02:00 04/03/18 03:00 04/03/18 04:00 Temperature 97.9 F Pulse Rate 62 57 L 58 L Respiratory Rate 16 16 Blood Pressure 124/59 L Pulse Oximetry 96 04/03/18 05:00 04/03/18 06:00 04/03/18 06:23 Temperature Pulse Rate 56 L 56 L Respiratory Rate 16 Blood Pressure Pulse Oximetry 04/03/18 08:02 Temperature Pulse Rate Respiratory Rate 16 Blood Pressure Pulse Oximetry Intake & Output 04/02/18 04/03/18 04/03/18 18:59 06:59 18:59 Intake Total 560 / 560 Balance 560 / 560 Weight 90.5 kg 94 kg Intake: Oral 560 / 560 Other: # Voids 2 Date of Last Bowel Movement 03/30/19 - Constitutional no acute distress - Routine HEENT Exam Head: Present: normocephalic, atraumatic Eye: Present: EOMI, PERRL ENT: Present: mucous membranes moist - Routine Neck Exam Present: supple, full ROM. Absent: JVD, carotid bruit, lymphadenopathy - Routine Respiratory Exam Present: CTA bilaterally. Absent: accessory muscle use - Routine Cardiovascular Exam Present: RRR, S1, S2. Absent: murmur, gallop, rubs - Routine Abdominal Exam Present: soft, normoactive bowel sounds. Absent: tenderness, distended, rebound , guarding - Routine Extremities Exam Present: full ROM, pulses intact, normal capillary refill. Absent: cyanosis, clubbing, edema - Routine Neurological Exam Present: alert, oriented X3, CN II-XII intact, normal reflexes. Absent: sensory deficit, motor deficit - Routine Psychiatric Exam Present: normal affect, normal thought process Results - Labs CBC & Chem 7: 04/03/18 05:24 04/03/18 05:24 Labs: Laboratory Results - last 24 hr 04/02/18 04/02/18 04/02/18 13:25 16:01 16:01 WBC RBC Hgb Hct MCV MCH MCHC RDW Plt Count MPV PT 10.7 INR 1.1 APTT 46.9 H D Sodium Potassium Chloride Carbon Dioxide Anion Gap BUN Creatinine Estimated GFR Random Glucose Calcium Total Creatine Kinase 558 H CK-MB (CK-2) 40.8 H CK-MB (CK-2) % 7.3 H* Troponin I 8.43 H* D Triglycerides Cholesterol LDL Cholesterol, Calc HDL Cholesterol Cholesterol/HDL Ratio Nasal Screen MRSA (PCR) Not detected 04/02/18 04/02/18 04/03/18 21:55 21:55 05:24 WBC RBC Hgb Hct MCV MCH MCHC RDW Plt Count MPV PT INR APTT 29.3 D Sodium 144 Potassium 4.1 Chloride 110 H Carbon Dioxide 27.6 Anion Gap 6 BUN 17 Creatinine 0.83 Estimated GFR 69 L Random Glucose 101 Calcium 8.3 L Total Creatine Kinase 479 H CK-MB (CK-2) 30.3 H CK-MB (CK-2) % 6.3 H* Troponin I 5.47 H* D Triglycerides 278 H Cholesterol 188 LDL Cholesterol, Calc 96 HDL Cholesterol 36.3 L Cholesterol/HDL Ratio 5.17 Nasal Screen MRSA (PCR) 04/03/18 04/03/18 05:24 09:52 WBC 11.4 H RBC 4.66 Hgb 14.8 Hct 43.7 MCV 93.8 MCH 31.7 MCHC 33.8 RDW 13.8 Plt Count 206 MPV 7.9 PT INR APTT 32.5 H Sodium Potassium Chloride Carbon Dioxide Anion Gap BUN Creatinine Estimated GFR Random Glucose Calcium Total Creatine Kinase CK-MB (CK-2) CK-MB (CK-2) % Troponin I Triglycerides Cholesterol LDL Cholesterol, Calc HDL Cholesterol Cholesterol/HDL Ratio Nasal Screen MRSA (PCR) Assessment and Plan - Assessment (1) Coronary artery disease involving [place] coronary artery Code(s): I25.10 - Atherosclerotic heart disease of [place] coronary artery without angina pectoris Status: Acute (2) Acute myocardial infarction Code(s): I21.9 - Acute myocardial infarction, unspecified Status: Acute - Plan Patient seen and examined, chart and angiograms reviewed on 04/03/2018 and the findings discussed in detail with the patient and her family. Therapeutic options available including CABG was offered. I agree with [Richard] that she will maximally benefit from bypass to her [LAD], [OM] and RPDA distributions. The risks, complications including but not limited to bleeding, infection, stroke, myocardial injury and , and benefits of the surgical procedure were discussed in details and all questions answered. She understands the provided information and agrees to proceed with the planned operation. We will plan on proceeding with the surgical procedure as describe above on Thursday. In the meantime, we will obtain carotid duplex imaging and lower extremity vein mapping. Thank you for allowing me to participate in the care of this patient.
[2018-04-03] MEDS ORDERED: Dextrose 50% in Water 50 ML Vial IV.PUSH PRN (13:24)
[2018-04-03] MEDS ORDERED: Chlorhexidine 4% Topical 120 APPLIC/120 ML Bottle TOPICAL SCH (13:30)
[2018-04-03] MEDS ORDERED: Vancomycin Inj 1,500 MG in Sodium Chlor 0.9% Inj 500 ML IV.SIG SCH (14:00)
[2018-04-03] MEDS ORDERED: Vancomycin Inj 1,500 MG in Sodium Chlor 0.9% Inj 250 ML IV.SIG SCH (14:00)
[2018-04-03] MEDS ORDERED: Insulin Regular (For Infusion) 100 UNIT in Sodium Chlor 0.9% Inj 99 ML IV.CONT PRN (14:00)
[2018-04-03] MEDS ORDERED: Sodium Chlor 0.9% Inj 77.5 ML, Papaverine Inj 60 MG, Nitroglycerin Inj 100 MCG, dilTIAZ... IRRIGATION SCH ×3 (14:00)
[2018-04-03] MEDS ORDERED: Sodium Chloride 0.9% Irr Bot 1,000 ML, Vancomycin Inj 1,000 MG IRRIGATION SCH ×2 (14:00)
--- NOTE | 2018-04-03 15:24 | P.PNCA ---
Subjective Interval history: No events overnight No chest pain Medications and Allergies Active Medications: Active Medications Acetaminophen (Tylenol) 650 mg PO Q4H PRN PRN Reason: Temp > 100.4 Hydrocodone Bitart/Acetaminophen (Leland 10/325) 1 tab PO QID PRN PRN Reason: PAIN SCALE 1 TO 10 Last Admin: 04/03/18 06:23 Dose: 1 tab Al Hydroxide/Mg Hydroxide (Milk Of Magnesia Liq) 30 ml PO Q12H PRN PRN Reason: Mild Constipation Albuterol (Ventolin Hfa Inh) 2 puff INH Q4H PRN PRN Reason: SHORTNESS OF BREATH Alprazolam (Xanax) 1 mg PO QID PRN PRN Reason: Anxiety Last Admin: 04/03/18 06:22 Dose: 1 mg Aspirin (Ecotrin) 81 mg PO DAILY [facility] Last Admin: 04/03/18 09:23 Dose: 81 mg Bisacodyl (Dulcolax Supp) 10 mg RECTAL DAILY PRN PRN Reason: SEVERE CONSITIPATION Chlorhexidine Gluconate (Hibiclens 4% Topical) 1 applicatio [employer] [facility] Stop: 04/09/18 13:24 Sodium Chloride 77.5 ml/Papaverine HCl 60 mg/Nitroglycerin 100 mcg/Diltiazem HCl 100 mg 0 ml [employer] [facility] Stop: 04/09/18 13:59 Sodium Chloride 1,000 ml/ (Vancomycin HCl 1,000 mg) 0 ml [employer] [facility] Stop: 04/09/18 13:59 Dextrose (D50w Vial) 50 ml IV.PUSH UNSCH PRN PRN Reason: PER HYPOGLYCEMIA PROTOCOL Famotidine (Pepcid) 20 mg PO BID [facility] Last Admin: 04/03/18 09:18 Dose: 20 mg Heparin Sodium (Porcine) (Heparin Inj) 2,500 units IV.PUSH UNSCH PRN PRN Reason: aPTT 25-39 Last Admin: 04/03/18 11:17 Dose: 2,500 units Heparin Sodium (Porcine) (Heparin Inj) 5,000 units IV.PUSH UNSCH PRN PRN Reason: aPTT < 25 Heparin Sodium/Dextrose (Heparin/D5w 25,000 U/250 Ml) 25,000 unit in 250 mls @ 0 mls/hr IV.CONT TITRATE PRN; Protocol PRN Reason: Per Protocol Last Titration: 04/03/18 11:09 Dose: 1,100 units/hr, 11 mls/hr Insulin Human Regular 100 unit (/ Sodium Chloride) 100 mls @ 3 mls/hr IV.CONT TITRATE PRN; Protocol PRN Reason: See Protocol Vancomycin HCl 1,500 mg/ (Sodium Chloride) 515 mls @ 257.5 mls/hr IV.SIG [employer] [facility] Stop: 04/09/18 13:59 Lactulose (Lactulose Liq) 30 ml PO DAILY PRN PRN Reason: SEVERE CONSITIPATION Metoprolol Tartrate (Lopressor) 12.5 mg PO BID [facility] Last Admin: 04/02/18 21:43 Dose: 12.5 mg Miscellaneous (Pill Splitter) 1 each OTHER UNSCH PRN PRN Reason: SEE LABEL COMMENTS Montelukast Sodium (Singulair) 10 mg PO DAILY [facility] Last Admin: 04/03/18 09:18 Dose: 10 mg Mupirocin (Bactroban 2% Nasal Oint) 1 applicatio EACH NARE BID [facility] Stop: 04/07/18 13:26 Ondansetron HCl (Zofran Inj) 4 mg IV.PUSH Q6H PRN PRN Reason: NAUSEA OR VOMITING Senna/Docusate Sodium (Serena-Colace) 1 tab PO BID [facility] Last Admin: 04/02/18 21:46 Dose: 1 tab Sennosides (Senokot) 17.2 mg PO Q12H PRN PRN Reason: Moderate Constipation Sodium Chloride (Ns Flush) 2 ml IV.FLUSH BID [facility] Last Admin: 04/03/18 09:19 Dose: Not Given Sodium Chloride (Ns Flush) 2 ml IV.FLUSH PRN PRN PRN Reason: FLUSH AFTER USING IV ACCESS Allergies Allergy/AdvReac Type Severity Reaction Status Date / Time alcohol Allergy Severe Vomiting Verified 04/02/18 10:03 cephalexin Allergy Severe ANAPHYLAXIS Verified 04/02/18 10:03 Influenza Virus Vaccines Allergy Severe Swelling Verified 04/02/18 10:03 levofloxacin Allergy Severe Hives Verified 04/02/18 10:03 meperidine Allergy Severe Hives Verified 04/02/18 10:03 cyclobenzaprine Allergy Intermediate shaky leg Verified 04/02/18 10:03 [From Flexeril] syndrome loratadine Allergy Mild shaky leg Verified 04/02/18 10:03 syndrome tetanus toxoid, adsorbed Allergy Mild Swelling Verified 04/02/18 15:09 clindamycin Allergy Unknown Hives Verified 04/02/18 15:09 diphtheria, pertussis, Allergy Swelling Verified 04/02/18 10:03 tetanus vacc Iodinated Contrast- Oral and Allergy Burning Verified 04/02/18 10:03 IV Dye loracarbef [From Lorabid] Allergy Anaphylaxis Verified 04/02/18 10:03 Penicillins Allergy Hives Verified 04/02/18 10:03 sertraline [From Zoloft] Allergy Hives Verified 04/02/18 10:03 Sulfa (Sulfonamide Allergy Rash Verified 04/02/18 10:03 Antibiotics) Home Medications Medication Instructions Recorded Confirmed Type alprazolam [Xanax] 1 mg PO QID PRN 04/02/18 04/02/18 History hydrocodone-acetaminophen 1 tab PO QID PRN 04/02/18 04/02/18 History ibuprofen 800 mg PO BID PRN 04/02/18 04/02/18 History lisinopril 20 mg PO DAILY 04/02/18 04/02/18 History metoprolol tartrate 25 mg PO HS 04/02/18 04/02/18 History montelukast 1 tab PO DAILY 04/02/18 04/02/18 History ranitidine HCl [Zantac] 150 mg PO BID 04/02/18 04/02/18 History Physical Exam Vital signs: Vital Signs 04/02/18 16:00 04/02/18 17:00 04/02/18 19:00 Temperature Pulse Rate 58 L 63 61 Respiratory Rate 18 17 Blood Pressure 121/68 Pulse Oximetry 97 98 04/02/18 20:00 04/02/18 21:46 04/02/18 22:00 Temperature 97.6 F Pulse Rate 60 68 Respiratory Rate 16 16 Blood Pressure 116/56 L Pulse Oximetry 97 04/02/18 23:00 04/03/18 00:00 04/03/18 01:00 Temperature 98.1 F Pulse Rate 66 72 66 Respiratory Rate 16 16 Blood Pressure 123/79 Pulse Oximetry 97 04/03/18 02:00 04/03/18 03:00 04/03/18 04:00 Temperature 97.9 F Pulse Rate 62 57 L 58 L Respiratory Rate 16 16 Blood Pressure 124/59 L Pulse Oximetry 96 04/03/18 05:00 04/03/18 06:00 04/03/18 06:23 Temperature Pulse Rate 56 L 56 L Respiratory Rate 16 Blood Pressure Pulse Oximetry 04/03/18 08:02 Temperature Pulse Rate Respiratory Rate 16 Blood Pressure Pulse Oximetry Intake & Output 04/02/18 04/03/18 04/03/18 18:59 06:59 18:59 Intake Total 560 / 560 Balance 560 / 560 Weight 90.5 kg 94 kg Intake: Oral 560 / 560 Other: # Voids 2 Date of Last Bowel Movement 03/30/19 Narrative: GENERAL: This is a well-nourished, well-developed patient, in no apparent distress. CARDIOVASCULAR: Normal rate and regular rhythm without murmurs, gallops, or rubs. RESPIRATORY: Good respiratory efforts. Breath sounds equal and clear to auscultation bilaterally. GASTROINTESTINAL: Abdomen soft, non-tender, non-distended. Normal active bowel sounds MUSCULOSKELETAL: Extremities without cyanosis, or edema. NEURO: Alert & Oriented x4 to person, place, time, situation. Moves all ext x4 PSYCH: Some anxiety about possible upcoming heart surgery. Results 04/03/18 05:24 04/03/18 05:24 Cardiac Enzymes 04/02/18 04/02/18 Range/Units 16:01 21:55 CK-MB (CK-2) 40.8 H 30.3 H (0.5-3.6) ng/mL Troponin I 8.43 H* D 5.47 H* D (0.02-0.05) ng/mL Coagulation 04/02/18 04/02/18 04/03/18 Range/Units 16:01 21:55 09:52 PT 10.7 (9.8-11.6) sec APTT 46.9 H D 29.3 D 32.5 H (23.4-31.7) sec Lipids 04/03/18 Range/Units 05:24 Triglycerides 278 H (42-150) mg/dL Cholesterol 188 (120-200) mg/dL HDL Cholesterol 36.3 L (40.0-60.0) mg/dL Cholesterol/HDL Ratio 5.17 Ratio CBC 04/03/18 Range/Units 05:24 WBC 11.4 H (4.0-11.0) th/mm3 RBC 4.66 (4.00-5.30) mil/mm3 Hgb 14.8 (11.6-15.3) gm/dL Hct 43.7 (35.0-46.0) % Plt Count 206 (150-450) th/mm3 Comprehensive Metabolic Panel 04/03/18 Range/Units 05:24 Sodium 144 (136-145) meq/L Potassium 4.1 (3.5-5.1) meq/L Chloride 110 H (98-107) meq/L Carbon Dioxide 27.6 (21.0-32.0) meq/L BUN 17 (7-18) mg/dL Creatinine 0.83 (0.50-1.00) mg/dL Calcium 8.3 L (8.5-10.1) mg/dL Intake and Output 04/03/18 04/03/18 04/03/18 06:59 14:59 22:59 Intake Total 560 / 560 Balance 560 / 560 Intake: Oral 560 / 560 Other: # Voids 2 Weight 94 kg Assessment and Plan - Assessment (1) Coronary artery disease involving sitka coronary artery Code(s): I25.10 - Atherosclerotic heart disease of sitka coronary artery without angina pectoris Status: Acute (2) Acute myocardial infarction Code(s): I21.9 - Acute myocardial infarction, unspecified Status: Acute - Plan 1) NSTEMI Found to have multivessel CAD CT surgery seeing for consideration of CABG Con't on heparin drip due to ischemia 2) Repeat echo pending 3) Lisinopril held due to plan for open heart surgery 4) Metoprolol changed to BID dosing
--- NOTE | 2018-04-03 15:44 | US ---
EXAM DATE: 04/03/2018 3:37 PM EST AGE/SEX: 67 years / Female INDICATIONS: PreOp cardiac surgery. CLINICAL DATA: This is the patient's initial encounter. Patient reports that signs and symptoms have been present for 1 day and indicates a pain score of 0/10. MEDICAL/SURGICAL HISTORY: Gastroesophageal reflux disease. Hypertension. Arthritis. Fibromyalg ia. . Exploratory Laparotomy. [place] [facility] [place]. . TECHNIQUE: Venous ultrasound of both lower extremities was performed from the inguinal ligament to t he proximal calf. Real-time, color Doppler and spectral tracing, compression and augmentation techni ques were used. FINDINGS: Right Leg: Normal compression of the deep venous system from the inguinal region to the proximal jaron f. No echogenic clot is seen. Normal response of the venous system to augmentation and respiration. Left Leg: Normal compression of the deep venous system from the inguinal region to the proximal calf . No echogenic clot is seen. Normal response of the venous system to augmentation and respiration. Other: None. CONCLUSION: 1. The study is negative for bilateral lower extremity deep venous thrombosis. Electronically signed by: Alex Spivey MD Board Certified Radiologist 04/03/2018 3:42 PM EST
--- NOTE | 2018-04-03 15:45 | US ---
EXAM DATE: 04/03/2018 3:36 PM EST AGE/SEX: 67 years / Female INDICATIONS: PreOp cardiac surgery. CLINICAL DATA: This is the patient's initial encounter. Patient reports that signs and symptoms have been present for 1 day and indicates a pain score of 0/10. MEDICAL/SURGICAL HISTORY: Gastroesophageal reflux disease. Hypertension. Arthritis. Fibromyalg ia. . Exploratory Laparotomy. COMPARISON: No prior exams available for comparison. VELOCITY PARAMETERS: ICA/CCA Ratio: Right 1.0 , Left 1.0 ICA: Right 87 cm/sec, Left 109 cm/sec CCA: Right 84 cm/sec, Left 107 cm/sec ECA: Right 105 cm/sec, Left 109 cm/sec Vertebral: Right 73 cm/sec antegrade, Left 68 cm/sec antegrade FINDINGS: Right Carotid: No significant plaque is visualized.The waveforms are within normal limits. Left Carotid: No significant plaque is visualized. The waveforms are within normal limits. Other: None. CONCLUSION: 1. Right Internal Carotid Artery: No significant stenosis or atherosclerotic plaque is visualized. 2. Left Internal Carotid Artery: No significant stenosis or atherosclerotic plaque is visualized. Electronically signed by: Alex Spivey MD Board Certified Radiologist 04/03/2018 3:44 PM EST
[2018-04-03] MEDS: Metoprolol Tartrate 25 MG Tablet PO SCH ×2 (15:48→20:05)
--- NOTE | 2018-04-03 16:09 | XR ---
EXAM DATE: 04/03/2018 3:55 PM EST AGE/SEX: 67 years / Female INDICATIONS: Evaluate for pneumonia, pneumothorax, or communicable disease. Preop for cardiac surger y. CLINICAL DATA: This is the patient's subsequent encounter. Patient reports that signs and symptoms h ave been present for 2 days and indicates a pain score of 0/10. MEDICAL/SURGICAL HISTORY: . Gastroesophageal reflux disease. Hypertension. Arthritis. Fibromyal ronan. . Exploratory Laparotomy. COMPARISON: [facility], CHEST 1V SINGLE AP, 04/02/2018. . FINDINGS: Mild increased interstitial markings are noted consistent with mild pulmonary vascular congestion zoraida susie pneumonia. Clinical correlation is recommended. The heart is stable. CONCLUSION: Mild increased interstitial markings are noted consistent with mild pulmonary vascular congestion zoraida susie pneumonia. Clinical correlation is recommended. Electronically signed by: Alex Spivey MD Board Certified Radiologist 04/03/2018 4:08 PM EST
--- NOTE | 2018-04-03 16:23 | US ---
EXAM DATE: 04/03/2018 3:40 PM EST AGE/SEX: 67 years / Female INDICATIONS: PreOp cardiac surgery. CLINICAL DATA: This is the patient's initial encounter. Patient reports that signs and symptoms have been present for 1 day and indicates a pain score of 0/10. MEDICAL/SURGICAL HISTORY: Gastroesophageal reflux disease. Hypertension. Arthritis. Fibromyalg ia. . Exploratory laparotomy. [place] [facility] LE[place]/03/2018. . MEASUREMENTS: RIGHT THIGH: Proximal:__6 mm Mid:__ 3 mm Distal:__3 mm LEFT THIGH: Proximal:__5 mm Mid:__3 mm Distal:__3 mm RIGHT CALF: Proximal:__3 mm Mid:__2 mm Distal:__3 mm LEFT CALF: Proximal:__4 mm Mid:__3 mm Distal:__2 mm FINDINGS: The venous system of the lower extremities are patent by color Doppler imaging. Measurements of the leg veins (in mm) are listed above. CONCLUSION: 1. Venous mapping with saphenous vein measurements described above. 2. No saphenous vein thrombosis noted. Electronically signed by: Alex Spivey MD Board Certified Radiologist 04/03/2018 4:22 PM EST
[2018-04-03] MEDS: Senna/Docusate Sodium 8.6/50 MG Tablet PO SCH ×2 (17:48→20:06)
[2018-04-03] MEDS: Mupirocin 2% Nasal Oint Topical Syringe EACH NARE SCH (20:04)
[2018-04-04 06:43] LABS: Hematocrit 42.3 % (35.0-46.0); Hemoglobin 14.4 gm/dL (11.6-15.3); Mean Corpuscular Hemoglobin 31.4 pg (27.0-34.0); Mean Corpuscular Volume 92.6 fL (80.0-100.0); Mean Platelet Volume 8.1 fL (7.0-11.0); Platelet Count 172 th/mm3 (150-450); Red Blood Count 4.57 mil/mm3 (4.00-5.30); Red Cell Distribution Width 13.8 % (11.6-17.2); White Blood Count 11.1 th/mm3 (4.0-11.0)
[2018-04-04] MEDS: Metoprolol Tartrate 25 MG Tablet PO SCH ×2 (08:31→20:15)
[2018-04-04] MEDS: Famotidine 20 MG Tablet PO SCH ×2 (08:31→20:15)
[2018-04-04] MEDS: Mupirocin 2% Nasal Oint Topical Syringe EACH NARE SCH ×2 (08:33→20:16)
[2018-04-04] MEDS: Senna/Docusate Sodium 8.6/50 MG Tablet PO SCH ×2 (08:33→20:15)
[2018-04-04] MEDS: Montelukast 10 MG Tablet PO SCH (08:33)
--- NOTE | 2018-04-04 09:37 | P.PNCV ---
- Note Subjective/Hospital Course: Clinically stable OR Thursday Objective: Vital Signs - 24 hr 04/03/18 10:00 04/03/18 11:00 04/03/18 12:00 Temperature Pulse Rate 56 L 57 L 60 Respiratory Rate Blood Pressure Pulse Oximetry 04/03/18 13:00 04/03/18 14:00 04/03/18 15:00 Temperature Pulse Rate 62 60 61 Respiratory Rate Blood Pressure Pulse Oximetry 04/03/18 16:00 04/03/18 17:00 04/03/18 17:47 Temperature 97.5 F L Pulse Rate 74 60 Respiratory Rate 17 17 Blood Pressure 121/58 L Pulse Oximetry 04/03/18 18:00 04/03/18 19:00 04/03/18 20:00 Temperature 97.4 F L Pulse Rate 64 64 66 Respiratory Rate 16 Blood Pressure 139/65 Pulse Oximetry 96 96 04/03/18 21:00 04/03/18 22:00 04/03/18 23:00 Temperature Pulse Rate 72 56 L 53 L Respiratory Rate Blood Pressure Pulse Oximetry 04/04/18 00:00 04/04/18 01:07 04/04/18 02:00 Temperature 97.6 F Pulse Rate 54 L 54 L 57 L Respiratory Rate 15 Blood Pressure 146/69 H Pulse Oximetry 96 04/04/18 03:00 04/04/18 04:00 04/04/18 05:00 Temperature 97.9 F Pulse Rate 60 56 L 53 L Respiratory Rate 15 Blood Pressure 119/56 L Pulse Oximetry 96 04/04/18 06:00 04/04/18 08:00 Temperature Pulse Rate 57 L Respiratory Rate Blood Pressure Pulse Oximetry 98 Labs: Laboratory Results - last 12 hr 04/03/18 04/03/18 04/04/18 17:45 22:58 06:13 WBC 11.1 H RBC 4.57 Hgb 14.4 Hct 42.3 MCV 92.6 MCH 31.4 MCHC 34.0 RDW 13.8 Plt Count 172 MPV 8.1 APTT 40.4 H Nasal Screen MRSA (PCR) Not detected Result Diagrams: 04/04/18 06:13 04/03/18 05:24
--- NOTE | 2018-04-04 10:22 | ECHRPT ---
Indication: CORONARY ATHEROSCLEROSIS CONCLUSIONS The left ventricular systolic function is normal with an estimated ejection fraction in the range of 55-60%. The right ventricular systoilc function is mildly decreased. Trace mitral valve regurgitation. Trace aortic valve regurgitation. There is mild tricuspid valve regurgitation. BP: / HR: Rhythm: Sinus MEASUREMENTS (Male / Female) Normal Values Technical Quality:Fair 2D ECHO LV Diastolic Diameter PLAX 4.4 cm 4.2 - 5.9 / 3.9 - 5.3 cm LV Systolic Diameter PLAX 3.0 cm IVS Diastolic Thickness 1.1 cm 0.6 - 1.0 / 0.6 - 0.9 cm LVPW Diastolic Thickness 1.1 cm 0.6 - 1.0 / 0.6 - 0.9 cm LV Relative Wall Thickness 0.5 RV Internal Dim ED PLAX 2.3 cm LVOT Diameter 1.9 cm Aortic Root Diameter 2.4 cm LA Systolic Diameter LX 3.2 cm 3.0 - 4.0 / 2.7 - 3.8 cm M-MODE AV Cusp Separation MM 1.8 cm DOPPLER AV Peak Velocity 132.0 cm/s AV Peak Gradient 7.0 mmHg AV Mean Gradient 4.0 mmHg AV Velocity Time Integral 29.1 cm AI Peak Velocity 321.5 cm/s AI Peak Gradient 41.3 mmHg AI Pressure Half Time 529.0 ms LVOT Peak Velocity 77.5 cm/s LVOT Peak Gradient 2.4 mmHg LVOT Velocity Time Integral 18.4 cm AV Area Cont Eq vti 1.8 cm AV Area Cont Eq pk 1.7 cm Mitral E Point Velocity 84.9 cm/s Mitral A Point Velocity 83.4 cm/s Mitral E to A Ratio 1.0 LV E' Lateral Velocity 8.3 cm/s Mitral E to LV E' Lateral Ratio 10.2 LV E' Septal Velocity 7.6 cm/s Mitral E to LV E' Septal Ratio 11.2 TR Peak Velocity 281.0 cm/s TR Peak Gradient 31.6 mmHg Right Atrial Pressure 10.0 mmHg Pulmonary Artery Systolic Pressu 41.6 mmHg Right Ventricular Systolic Press 41.6 mmHg PV Peak Velocity 59.4 cm/s PV Peak Gradient 1.4 mmHg FINDINGS LEFT VENTRICLE Normal left ventricular size. Wall thickness is measured at the upper limits of normal. The left ventricular systolic function is normal with an estimated ejection fraction in the range of 55-60%. RIGHT VENTRICLE The right ventricle is mildly dilated. The right ventricular systoilc function is mildly decreased. LEFT ATRIUM The left atrial size is normal. RIGHT ATRIUM The right atrial size is normal. ATRIAL SEPTUM No atrial level shunt is demonstrated by color flow Doppler interrogation. AORTA The aortic root and proximal ascending aorta are not well visualized. MITRAL VALVE Grossly normal Trace mitral valve regurgitation. No mitral valve stenosis. AORTIC VALVE Aortic valve sclerosis is present. Trace aortic valve regurgitation. No aortic valve stenosis. TRICUSPID VALVE Structurally normal tricuspid valve. There is mild tricuspid valve regurgitation. No tricuspid valve stenosis. The estimated pulmonary arterial pressure is 41.6 mmHg. PULMONARY VALVE No pulmonary valve regurgitation or stenosis. VESSELS The inferior vena cava was not well visualized. PERICARDIUM No pericardial effusion. Gary Ramos DO (Electronically Signed) Final Date:04 April 2018 10:21
[2018-04-04 13:01] LABS: Amorphous Sediment,Urine Rare /hpf; Bilirubin,Urine Negative (Negative); Clarity,Urine Hazy (Clear); Color,Urine Yellow (Yellw/Straw); Glucose,Urine (UA) Negative (Negative); Leukocyte Esterase,Urine Negative (Negative); Mucus,Urine Few /lpf (Occasional); Nitrite,Urine Negative (Negative); Specific Gravity,Urine 1.013 (1.002-1.035); Squamous Epithelial Cell,Urine 3 /hpf (0-5)
--- NOTE | 2018-04-04 14:28 | P.PNCA ---
Subjective Interval history: No events overnight No chest pain Medications and Allergies Active Medications: Active Medications Acetaminophen (Tylenol) 650 mg PO Q4H PRN PRN Reason: Temp > 100.4 Hydrocodone Bitart/Acetaminophen ([place] 10/325) 1 tab PO QID PRN PRN Reason: PAIN SCALE 1 TO 10 Last Admin: 04/04/18 06:30 Dose: 1 tab Al Hydroxide/Mg Hydroxide (Milk Of Magnesia Liq) 30 ml PO Q12H PRN PRN Reason: Mild Constipation Albuterol (Ventolin Hfa Inh) 2 puff INH Q4H PRN PRN Reason: SHORTNESS OF BREATH Alprazolam (Xanax) 1 mg PO QID PRN PRN Reason: Anxiety Last Admin: 04/04/18 06:30 Dose: 1 mg Aspirin (Ecotrin) 81 mg PO DAILY [facility] Last Admin: 04/04/18 08:31 Dose: 81 mg Bisacodyl (Dulcolax Supp) 10 mg RECTAL DAILY PRN PRN Reason: SEVERE CONSITIPATION Chlorhexidine Gluconate (Hibiclens 4% Topical) 1 applicatio TOPICAL [facility] Stop: 04/09/18 13:24 Sodium Chloride 77.5 ml/Papaverine HCl 60 mg/Nitroglycerin 100 mcg/Diltiazem HCl 100 mg 0 ml IRRIGATION [facility] Stop: 04/09/18 13:59 Sodium Chloride 1,000 ml/ (Vancomycin HCl 1,000 mg) 0 ml IRRIGATION [facility] Stop: 04/09/18 13:59 Dextrose (D50w Vial) 50 ml IV.PUSH UNSCH PRN PRN Reason: PER HYPOGLYCEMIA PROTOCOL Famotidine (Pepcid) 20 mg PO BID [facility] Last Admin: 04/04/18 08:31 Dose: 20 mg Heparin Sodium (Porcine) (Heparin Inj) 2,500 units IV.PUSH UNSCH PRN PRN Reason: aPTT 25-39 Last Admin: 04/03/18 11:17 Dose: 2,500 units Heparin Sodium (Porcine) (Heparin Inj) 5,000 units IV.PUSH UNSCH PRN PRN Reason: aPTT < 25 Heparin Sodium/Dextrose (Heparin/D5w 25,000 U/250 Ml) 25,000 unit in 250 mls @ 0 mls/hr IV.CONT TITRATE PRN; Protocol PRN Reason: Per Protocol Last Admin: 04/03/18 22:45 Dose: 1,100 units/hr, 11 mls/hr Insulin Human Regular 100 unit (/ Sodium Chloride) 100 mls @ 3 mls/hr IV.CONT TITRATE PRN; Protocol PRN Reason: See Protocol Vancomycin HCl 1,500 mg/ (Sodium Chloride) 515 mls @ 257.5 mls/hr IV.SIG [facility] Stop: 04/09/18 13:59 Lactulose (Lactulose Liq) 30 ml PO DAILY PRN PRN Reason: SEVERE CONSITIPATION Metoprolol Tartrate (Lopressor) 12.5 mg PO BID [facility] Last Admin: 04/04/18 08:31 Dose: 12.5 mg Miscellaneous (Pill Splitter) 1 each OTHER UNSCH PRN PRN Reason: SEE LABEL COMMENTS Montelukast Sodium (Singulair) 10 mg PO DAILY [facility] Last Admin: 04/04/18 08:33 Dose: 10 mg Mupirocin (Bactroban 2% Nasal Oint) 1 applicatio EACH NARE BID [facility] Stop: 04/07/18 13:26 Last Admin: 04/04/18 08:33 Dose: 1 applicatio Ondansetron HCl (Zofran Inj) 4 mg IV.PUSH Q6H PRN PRN Reason: NAUSEA OR VOMITING Senna/Docusate Sodium (Serena-Colace) 1 tab PO BID [facility] Last Admin: 04/04/18 08:33 Dose: 1 tab Sennosides (Senokot) 17.2 mg PO Q12H PRN PRN Reason: Moderate Constipation Last Admin: 04/03/18 20:23 Dose: 17.2 mg Sodium Chloride (Ns Flush) 2 ml IV.FLUSH BID [facility] Last Admin: 04/04/18 08:41 Dose: Not Given Sodium Chloride (Ns Flush) 2 ml IV.FLUSH PRN PRN PRN Reason: FLUSH AFTER USING IV ACCESS Allergies Allergy/AdvReac Type Severity Reaction Status Date / Time alcohol Allergy Severe Vomiting Verified 04/02/18 10:03 cephalexin Allergy Severe ANAPHYLAXIS Verified 04/02/18 10:03 Influenza Virus Vaccines Allergy Severe Swelling Verified 04/02/18 10:03 levofloxacin Allergy Severe Hives Verified 04/02/18 10:03 meperidine Allergy Severe Hives Verified 04/02/18 10:03 cyclobenzaprine Allergy Intermediate shaky leg Verified 04/02/18 10:03 [From Flexeril] syndrome loratadine Allergy Mild shaky leg Verified 04/02/18 10:03 syndrome tetanus toxoid, adsorbed Allergy Mild Swelling Verified 04/02/18 15:09 clindamycin Allergy Unknown Hives Verified 04/02/18 15:09 diphtheria, pertussis, Allergy Swelling Verified 04/02/18 10:03 tetanus vacc Iodinated Contrast- Oral and Allergy Burning Verified 04/02/18 10:03 IV Dye loracarbef [From Lorabid] Allergy Anaphylaxis Verified 04/02/18 10:03 Penicillins Allergy Hives Verified 04/02/18 10:03 sertraline [From Zoloft] Allergy Hives Verified 04/02/18 10:03 Sulfa (Sulfonamide Allergy Rash Verified 04/02/18 10:03 Antibiotics) Home Medications Medication Instructions Recorded Confirmed Type alprazolam [Xanax] 1 mg PO QID PRN 04/02/18 04/02/18 History hydrocodone-acetaminophen 1 tab PO QID PRN 04/02/18 04/02/18 History ibuprofen 800 mg PO BID PRN 04/02/18 04/02/18 History lisinopril 20 mg PO DAILY 04/02/18 04/02/18 History metoprolol tartrate 25 mg PO HS 04/02/18 04/02/18 History montelukast 1 tab PO DAILY 04/02/18 04/02/18 History ranitidine HCl [Zantac] 150 mg PO BID 04/02/18 04/02/18 History Physical Exam Vital signs: Vital Signs 04/03/18 15:00 04/03/18 16:00 04/03/18 17:00 Temperature 97.5 F L Pulse Rate 61 74 60 Respiratory Rate 17 Blood Pressure 121/58 L Pulse Oximetry 04/03/18 17:47 04/03/18 18:00 04/03/18 19:00 Temperature 97.4 F L Pulse Rate 64 64 Respiratory Rate 17 16 Blood Pressure 139/65 Pulse Oximetry 96 04/03/18 20:00 04/03/18 21:00 04/03/18 22:00 Temperature Pulse Rate 66 72 56 L Respiratory Rate Blood Pressure Pulse Oximetry 96 04/03/18 23:00 04/04/18 00:00 04/04/18 01:07 Temperature 97.6 F Pulse Rate 53 L 54 L 54 L Respiratory Rate 15 Blood Pressure 146/69 H Pulse Oximetry 96 04/04/18 02:00 04/04/18 03:00 04/04/18 04:00 Temperature 97.9 F Pulse Rate 57 L 60 56 L Respiratory Rate 15 Blood Pressure 119/56 L Pulse Oximetry 96 04/04/18 05:00 04/04/18 06:00 04/04/18 08:00 Temperature Pulse Rate 53 L 57 L Respiratory Rate Blood Pressure Pulse Oximetry 98 Intake & Output 04/03/18 04/04/18 04/04/18 18:59 06:59 18:59 Intake Total 720 / 720 950 / 950 Output Total 3 / 3 Balance 720 / 720 947 / 947 Weight 93 kg Intake: IV 250 / 250 Heparin/D5W 25,000 U/250 mL 25, 250 / 250 000 unit In 250 ml @ Per Protocol IV.CONT TITRATE PRN Rx #:[id number] Oral 720 / 720 700 / 700 Output: Urine 3 / 3 Other: # Voids 3 Narrative: GENERAL: This is a well-nourished, well-developed patient, in no apparent distress. CARDIOVASCULAR: Normal rate and regular rhythm without murmurs, gallops, or rubs. RESPIRATORY: Good respiratory efforts. Breath sounds equal and clear to auscultation bilaterally. GASTROINTESTINAL: Abdomen soft, non-tender, non-distended. Normal active bowel sounds MUSCULOSKELETAL: Extremities without cyanosis, or edema. NEURO: Alert & Oriented x4 to person, place, time, situation. Moves all ext x4 PSYCH: Some anxiety about possible upcoming heart surgery. Results 04/04/18 06:13 04/03/18 05:24 Cardiac Enzymes 04/02/18 04/02/18 Range/Units 16:01 21:55 CK-MB (CK-2) 40.8 H 30.3 H (0.5-3.6) ng/mL Troponin I 8.43 H* D 5.47 H* D (0.02-0.05) ng/mL Coagulation 04/02/18 04/02/18 04/03/18 Range/Units 16:01 21:55 09:52 PT 10.7 (9.8-11.6) sec APTT 46.9 H D 29.3 D 32.5 H (23.4-31.7) sec 04/03/18 04/03/18 04/04/18 Range/Units 16:39 22:58 09:29 PT (9.8-11.6) sec APTT 46.2 H D 40.4 H 42.7 H (23.4-31.7) sec Lipids 04/03/18 Range/Units 05:24 Triglycerides 278 H (42-150) mg/dL Cholesterol 188 (120-200) mg/dL HDL Cholesterol 36.3 L (40.0-60.0) mg/dL Cholesterol/HDL Ratio 5.17 Ratio CBC 04/03/18 04/04/18 Range/Units 05:24 06:13 WBC 11.4 H 11.1 H (4.0-11.0) th/mm3 RBC 4.66 4.57 (4.00-5.30) mil/mm3 Hgb 14.8 14.4 (11.6-15.3) gm/dL Hct 43.7 42.3 (35.0-46.0) % Plt Count 206 172 (150-450) th/mm3 Comprehensive Metabolic Panel 04/03/18 Range/Units 05:24 Sodium 144 (136-145) meq/L Potassium 4.1 (3.5-5.1) meq/L Chloride 110 H (98-107) meq/L Carbon Dioxide 27.6 (21.0-32.0) meq/L BUN 17 (7-18) mg/dL Creatinine 0.83 (0.50-1.00) mg/dL Calcium 8.3 L (8.5-10.1) mg/dL Intake and Output 04/03/18 04/04/18 04/04/18 22:59 06:59 14:59 Intake Total 970 / 970 700 / 700 Output Total 3 / 3 Balance 970 / 970 697 / 697 Intake: IV 250 / 250 Heparin/D5W 25,000 U/250 mL 25, 250 / 250 000 unit In 250 ml @ Per Protocol IV.CONT TITRATE PRN Rx #:[id number] Oral 720 / 720 700 / 700 Output: Urine 3 / 3 Other: # Voids 3 Weight 93 kg - Imaging and Cardiology Imaging: Impressions Venous Doppler Study 04/03/18 00:00 CONCLUSION: 1. The study is negative for bilateral lower extremity deep venous thrombosis. Carotid Doppler Study 04/03/18 13:24 CONCLUSION: 1. Right Internal Carotid Artery: No significant stenosis or atherosclerotic plaque is visualized. 2. Left Internal Carotid Artery: No significant stenosis or atherosclerotic plaque is visualized. Chest X-Ray 04/03/18 13:24 CONCLUSION: Mild increased interstitial markings are noted consistent with mild pulmonary vascular congestion versus pneumonia. Clinical correlation is recommended. Lower Extremity Ultrasound 04/03/18 13:24 CONCLUSION: 1. Venous mapping with saphenous vein measurements described above. 2. No saphenous vein thrombosis noted. Assessment and Plan - Assessment (1) Coronary artery disease involving [place] coronary artery Code(s): I25.10 - Atherosclerotic heart disease of [place] coronary artery without angina pectoris Status: Acute (2) Acute myocardial infarction Code(s): I21.9 - Acute myocardial infarction, unspecified Status: Acute - Plan 1) NSTEMI Found to have multivessel CAD CT surgery seeing for consideration of CABG, planned for Thursday Con't on heparin drip due to ischemia 2) EF 55-60% 3) Lisinopril held due to plan for open heart surgery 4) Metoprolol changed to BID dosing
--- NOTE | 2018-04-04 14:28 | P.PNIM ---
Subjective Interval history: Patient reports she is feeling okay today. No new issues. Scheduled for CABG on Thursday Physical Exam Vital signs: Last Vital Signs Temp 97.9 F 04/04/18 04:00 Pulse 57 L 04/04/18 06:00 Resp 15 04/04/18 04:00 BP 119/56 L 04/04/18 04:00 Pulse Ox 98 04/04/18 08:00 Intake & Output 04/02/18 04/03/18 04/04/18 04/05/18 06:59 06:59 06:59 06:59 Intake Total 560 / 560 1670 / 1670 Output Total 3 / 3 Balance 560 / 560 1667 / 1667 Weight 94 kg 93 kg Narrative: GENERAL: This is a well-nourished, well-developed patient, in no apparent distress. CARDIOVASCULAR: Normal rate and regular rhythm without murmurs, gallops, or rubs. RESPIRATORY: Good respiratory efforts. Breath sounds equal and clear to auscultation bilaterally. GASTROINTESTINAL: Abdomen soft, non-tender, non-distended. Normal active bowel sounds MUSCULOSKELETAL: Extremities without cyanosis, or edema. NEURO: Alert & Oriented x4 to person, place, time, situation. Moves all ext x4 PSYCH: Calm today Results Labs CBC & Chem 7: 04/04/18 06:13 04/03/18 05:24 Imaging Imaging: Impressions Venous Doppler Study 04/03/18 00:00 CONCLUSION: 1. The study is negative for bilateral lower extremity deep venous thrombosis. Carotid Doppler Study 04/03/18 13:24 CONCLUSION: 1. Right Internal Carotid Artery: No significant stenosis or atherosclerotic plaque is visualized. 2. Left Internal Carotid Artery: No significant stenosis or atherosclerotic plaque is visualized. Chest X-Ray 04/03/18 13:24 CONCLUSION: Mild increased interstitial markings are noted consistent with mild pulmonary vascular congestion versus pneumonia. Clinical correlation is recommended. Lower Extremity Ultrasound 04/03/18 13:24 CONCLUSION: 1. Venous mapping with saphenous vein measurements described above. 2. No saphenous vein thrombosis noted. Assessment and Plan (1) Coronary artery disease involving [place] coronary artery: Code(s): I25.10 - Atherosclerotic heart disease of [place] coronary artery without angina pectoris Status: Acute (2) Acute myocardial infarction: Code(s): I21.9 - Acute myocardial infarction, unspecified Status: Acute Plan 67-year-old female admitted for N STEMI. Patient underwent heart catheterization which revealed multivessel coronary artery disease. CT surgery consulted to consider CABG. NSTEMI: -Status post heart cath which revealed multivessel disease -CT following and planning for heart catheterization on Thursday - Continue heparin drip, statin beta-florian, -Preserved LVEF on echo HTN -hold lisinopril in anticipation for CABG. Continue beta-florian. Continue to monitor BP GERD - zantac FIBROMYALGIA - pain control TOBACCO ABUSE/NICOTINE ADDICTION - cessation counseling provided OBESITY - bmi 34 -recommend diet and weight loss. dvt prophylaxis - heparin gtt Progress Note: Quality VTE Deep Vein Thrombosis/Pulmonary Embolism Present on Admission: No _ (1) Coronary artery disease involving [place] coronary artery Qualifiers: [place] vs. transplanted heart: Associated angina: (2) Acute myocardial infarction Qualifiers: Myocardial infarction type: Involved coronary artery:
[2018-04-04] MEDS: Heparin Drip 25,000 UNIT/250 ML BAG IV.CONT PRN (20:14)
[2018-04-05 05:19] LABS: Hematocrit 41.4 % (35.0-46.0); Mean Corpuscular HGB Conc 33.7 % (32.0-36.0); Mean Corpuscular Hemoglobin 31.5 pg (27.0-34.0); Mean Corpuscular Volume 93.2 fL (80.0-100.0); Mean Platelet Volume 8.5 fL (7.0-11.0); Platelet Count 180 th/mm3 (150-450); Red Blood Count 4.44 mil/mm3 (4.00-5.30); Red Cell Distribution Width 13.4 % (11.6-17.2); White Blood Count 9.7 th/mm3 (4.0-11.0)
[2018-04-05 07:56] LABS: Hemoglobin A1c 5.8 % (4.3-6.0)
[2018-04-05] MEDS: Metoprolol Tartrate 25 MG Tablet PO SCH ×2 (09:12→20:28)
[2018-04-05] MEDS: Mupirocin 2% Nasal Oint Topical Syringe EACH NARE SCH ×2 (09:12→20:28)
[2018-04-05] MEDS: Montelukast 10 MG Tablet PO SCH (09:13)
[2018-04-05] MEDS: Famotidine 20 MG Tablet PO SCH ×2 (09:13→20:27)
[2018-04-05] MEDS: Senna/Docusate Sodium 8.6/50 MG Tablet PO SCH ×2 (09:14→20:28)
--- NOTE | 2018-04-05 10:04 | P.PNIM ---
Subjective Interval history: Patient reprots she is feeling ok today. No chest pain. No shortness of breath. Physical Exam Vital signs: Last Vital Signs Temp 97.9 F 04/05/18 08:00 Pulse 63 04/05/18 08:00 Resp 18 04/05/18 08:25 BP 149/65 H 04/05/18 08:00 Pulse Ox 98 04/05/18 08:00 Intake & Output 04/03/18 04/04/18 04/05/18 04/06/18 06:59 06:59 06:59 06:59 Intake Total 560 / 560 1670 / 1670 1150 / 1150 Output Total 3 / 3 Balance 560 / 560 1667 / 1667 1150 / 1150 Weight 94 kg 93 kg 93.5 kg Narrative: GENERAL: This is a well-nourished, well-developed patient, in no apparent distress. CARDIOVASCULAR: Normal rate and regular rhythm without murmurs, gallops, or rubs. RESPIRATORY: Good respiratory efforts. Breath sounds equal and clear to auscultation bilaterally. GASTROINTESTINAL: Abdomen soft, non-tender, non-distended. Normal active bowel sounds MUSCULOSKELETAL: Extremities without cyanosis, or edema. NEURO: Alert & Oriented x4 to person, place, time, situation. Moves all ext x4 PSYCH: Expressed some anxiety about upcoming heart surgery. Results Labs CBC & Chem 7: 04/05/18 04:10 04/03/18 05:24 Assessment and Plan (1) Coronary artery disease involving [place] coronary artery: Code(s): I25.10 - Atherosclerotic heart disease of [place] coronary artery without angina pectoris Status: Acute (2) Acute myocardial infarction: Code(s): I21.9 - Acute myocardial infarction, unspecified Status: Acute Plan 67-year-old female admitted for N STEMI. Patient underwent heart catheterization which revealed multivessel coronary artery disease. CT surgery consulted to consider CABG. NSTEMI: -Status post heart cath which revealed multivessel disease -CT following and planning for heart catheterization on Thursday - Continue heparin drip, statin beta-florian, -Preserved LVEF on echo - Chest pain free. HTN -hold lisinopril in anticipation for CABG. Continue beta-florian. Continue to monitor BP GERD - zantac FIBROMYALGIA - pain control TOBACCO ABUSE/NICOTINE ADDICTION - cessation counseling provided OBESITY - bmi 34 -recommend diet and weight loss. dvt prophylaxis - heparin gtt Progress Note: Quality VTE Deep Vein Thrombosis/Pulmonary Embolism Present on Admission: No _ (1) Coronary artery disease involving [place] coronary artery Qualifiers: [place] vs. transplanted heart: Associated angina: (2) Acute myocardial infarction Qualifiers: Myocardial infarction type: Involved coronary artery:
--- NOTE | 2018-04-05 11:26 | P.PNCV ---
- Note Subjective/Hospital Course: Very pleasant 67-year-old female presenting with new onset chest pain described as a pressure sensation. Patient was seen and evaluated emergency department and admitted with the primary diagnosis of acute myocardial infarction (NSTEMI ) . She subsequent underwent a coronary angiogram which reveals multivessel coronary artery disease. I am now being consulted for surgical revascularization therapy. EF 55% At the present time she remains pain-free, hemodynamically stable with no evidence of ongoing ischemia. Review of Systems All other systems reviewed negative except as stated in HPI [facility] - History History Provided By: Patient - Medical History Medical History: Medical History (Last Reviewed 04/02/18 @ 14:11 by Aruna Ritchie RN) Arthritis Fibromyalgia GERD (gastroesophageal reflux disease) Hypertension Non-tuberculous bronchiectasis Seasonal allergies 04/05 pain free, wanted to get second opinion with Dr Cooper prior to surgery on heparin gtt sts data will be documented in computer Objective: Vital Signs - 24 hr 04/04/18 12:00 04/04/18 13:00 04/04/18 14:00 Temperature 97.6 F Pulse Rate 58 L 58 L 58 L Respiratory Rate 17 Blood Pressure 126/59 L Pulse Oximetry 96 04/04/18 15:00 04/04/18 15:26 04/04/18 16:00 Temperature 97.8 F Pulse Rate 56 L 59 L 56 L Respiratory Rate 17 Blood Pressure 139/65 Pulse Oximetry 97 04/04/18 17:00 04/04/18 18:00 04/04/18 19:00 Temperature Pulse Rate 60 62 65 Respiratory Rate Blood Pressure Pulse Oximetry 04/04/18 20:00 04/04/18 21:00 04/04/18 22:00 Temperature 98.5 F Pulse Rate 61 60 55 L Respiratory Rate 17 Blood Pressure 147/65 H Pulse Oximetry 98 04/04/18 22:21 04/04/18 22:43 04/04/18 23:00 Temperature Pulse Rate 55 L Respiratory Rate 18 17 Blood Pressure Pulse Oximetry 04/05/18 00:00 04/05/18 01:00 04/05/18 02:00 Temperature 98.0 F Pulse Rate 55 L 54 L 52 L Respiratory Rate 17 Blood Pressure 141/63 H Pulse Oximetry 97 04/05/18 03:00 04/05/18 04:00 04/05/18 05:00 Temperature 98.0 F Pulse Rate 51 L 51 L 57 L Respiratory Rate 17 Blood Pressure 134/64 Pulse Oximetry 94 L 04/05/18 05:58 04/05/18 07:00 04/05/18 08:00 Temperature 97.9 F Pulse Rate 57 L 65 62 Respiratory Rate 18 Blood Pressure 149/65 H Pulse Oximetry 98 04/05/18 08:25 04/05/18 09:00 04/05/18 10:00 Temperature Pulse Rate 59 L 59 L Respiratory Rate 18 Blood Pressure Pulse Oximetry GENERAL: SKIN: Warm and dry. HEAD: Normocephalic. EYES: No scleral icterus. No injection or drainage. NECK: Supple, trachea midline. No JVD or lymphadenopathy. CARDIOVASCULAR: Regular rate and rhythm without murmurs, gallops, or rubs. RESPIRATORY: Breath sounds equal bilaterally. No accessory muscle use. GASTROINTESTINAL: Abdomen soft, non-tender, nondistended. MUSCULOSKELETAL: No cyanosis, or edema. BACK: Nontender without obvious deformity. No CVA tenderness. Labs: Laboratory Results - last 12 hr 04/03/18 04/05/18 04/05/18 15:12 04:10 04:10 WBC 9.7 RBC 4.44 Hgb 14.0 Hct 41.4 MCV 93.2 MCH 31.5 MCHC 33.7 RDW 13.4 Plt Count 180 MPV 8.5 APTT 44.3 H Hemoglobin A1c 5.8 Result Diagrams: 04/05/18 04:10 04/03/18 05:24 - Plan (1) Coronary artery disease involving [place] coronary artery Plan: ASA, BB for surgery on Thu
--- NOTE | 2018-04-05 11:54 | P.PNCA ---
Subjective Interval history: Pt doing well, has many questions/concerns about cabg. Medications and Allergies Active Medications: Active Medications Acetaminophen (Tylenol) 650 mg PO Q4H PRN PRN Reason: Temp > 100.4 Hydrocodone Bitart/Acetaminophen ([place] 10/325) 1 tab PO QID PRN PRN Reason: PAIN SCALE 1 TO 10 Last Admin: 04/05/18 06:22 Dose: 1 tab Al Hydroxide/Mg Hydroxide (Milk Of Magncarl Liq) 30 ml PO Q12H PRN PRN Reason: Mild Constipation Albuterol (Ventolin Hfa Inh) 2 puff INH Q4H PRN PRN Reason: SHORTNESS OF BREATH Alprazolam (Xanax) 1 mg PO QID PRN PRN Reason: Anxiety Last Admin: 04/05/18 06:22 Dose: 1 mg Aspirin (Ecotrin) 81 mg PO DAILY [facility] Last Admin: 04/05/18 09:13 Dose: 81 mg Bisacodyl (Dulcolax Supp) 10 mg RECTAL DAILY PRN PRN Reason: SEVERE CONSITIPATION Chlorhexidine Gluconate (Hibiclens 4% Topical) 1 applicatio TOPICAL MANAGER SKILLED [facility] Stop: 04/09/18 13:24 Sodium Chloride 77.5 ml/Papaverine HCl 60 mg/Nitroglycerin 100 mcg/Diltiazem HCl 100 mg 0 ml IRRIGATION MANAGER SKILLED [facility] Stop: 04/09/18 13:59 Sodium Chloride 1,000 ml/ (Vancomycin HCl 1,000 mg) 0 ml IRRIGATION MANAGER SKILLED [facility] Stop: 04/09/18 13:59 Dextrose (D50w Vial) 50 ml IV.PUSH UNSCH PRN PRN Reason: PER HYPOGLYCEMIA PROTOCOL Famotidine (Pepcid) 20 mg PO BID [facility] Last Admin: 04/05/18 09:13 Dose: 20 mg Heparin Sodium (Porcine) (Heparin Inj) 2,500 units IV.PUSH UNSCH PRN PRN Reason: aPTT 25-39 Last Admin: 04/03/18 11:17 Dose: 2,500 units Heparin Sodium (Porcine) (Heparin Inj) 5,000 units IV.PUSH UNSCH PRN PRN Reason: aPTT < 25 Heparin Sodium/Dextrose (Heparin/D5w 25,000 U/250 Ml) 25,000 unit in 250 mls @ 0 mls/hr IV.CONT TITRATE PRN; Protocol PRN Reason: Per Protocol Last Admin: 04/04/18 20:14 Dose: 1,100 units/hr, 11 mls/hr Insulin Human Regular 100 unit (/ Sodium Chloride) 100 mls @ 3 mls/hr IV.CONT TITRATE PRN; Protocol PRN Reason: See Protocol Vancomycin HCl 1,500 mg/ (Sodium Chloride) 515 mls @ 257.5 mls/hr IV.SIG MANAGER SKILLED [facility] Stop: 04/09/18 13:59 Lactulose (Lactulose Liq) 30 ml PO DAILY PRN PRN Reason: SEVERE CONSITIPATION Metoprolol Tartrate (Lopressor) 12.5 mg PO BID [facility] Last Admin: 04/05/18 09:12 Dose: 12.5 mg Miscellaneous (Pill Splitter) 1 each OTHER UNSCH PRN PRN Reason: SEE LABEL COMMENTS Montelukast Sodium (Singulair) 10 mg PO DAILY [facility] Last Admin: 04/05/18 09:13 Dose: 10 mg Mupirocin (Bactroban 2% Nasal Oint) 1 applicatio EACH NARE BID [facility] Stop: 04/07/18 13:26 Last Admin: 04/05/18 09:12 Dose: 1 applicatio Ondansetron HCl (Zofran Inj) 4 mg IV.PUSH Q6H PRN PRN Reason: NAUSEA OR VOMITING Senna/Docusate Sodium (Serena-Colace) 1 tab PO BID [facility] Last Admin: 04/05/18 09:14 Dose: 1 tab Sennosides (Senokot) 17.2 mg PO Q12H PRN PRN Reason: Moderate Constipation Last Admin: 04/03/18 20:23 Dose: 17.2 mg Sodium Chloride (Ns Flush) 2 ml IV.FLUSH BID [facility] Last Admin: 04/05/18 09:13 Dose: Not Given Sodium Chloride (Ns Flush) 2 ml IV.FLUSH PRN PRN PRN Reason: FLUSH AFTER USING IV ACCESS Allergies Allergy/AdvReac Type Severity Reaction Status Date / Time alcohol Allergy Severe Vomiting Verified 04/02/18 10:03 cephalexin Allergy Severe ANAPHYLAXIS Verified 04/02/18 10:03 Influenza Virus Vaccines Allergy Severe Swelling Verified 04/02/18 10:03 levofloxacin Allergy Severe Hives Verified 04/02/18 10:03 meperidine Allergy Severe Hives Verified 04/02/18 10:03 cyclobenzaprine Allergy Intermediate shaky leg Verified 04/02/18 10:03 [From Flexeril] syndrome loratadine Allergy Mild shaky leg Verified 04/02/18 10:03 syndrome tetanus toxoid, adsorbed Allergy Mild Swelling Verified 04/02/18 15:09 clindamycin Allergy Unknown Hives Verified 04/02/18 15:09 diphtheria, pertussis, Allergy Swelling Verified 04/02/18 10:03 tetanus vacc Iodinated Contrast- Oral and Allergy Burning Verified 04/02/18 10:03 IV Dye loracarbef [From Lorabid] Allergy Anaphylaxis Verified 04/02/18 10:03 Penicillins Allergy Hives Verified 04/02/18 10:03 sertraline [From Zoloft] Allergy Hives Verified 04/02/18 10:03 Sulfa (Sulfonamide Allergy Rash Verified 04/02/18 10:03 Antibiotics) Home Medications Medication Instructions Recorded Confirmed Type alprazolam [Xanax] 1 mg PO QID PRN 04/02/18 04/02/18 History hydrocodone-acetaminophen 1 tab PO QID PRN 04/02/18 04/02/18 History ibuprofen 800 mg PO BID PRN 04/02/18 04/02/18 History lisinopril 20 mg PO DAILY 04/02/18 04/02/18 History metoprolol tartrate 25 mg PO HS 04/02/18 04/02/18 History montelukast 1 tab PO DAILY 04/02/18 04/02/18 History ranitidine HCl [Zantac] 150 mg PO BID 04/02/18 04/02/18 History Physical Exam Vital signs: Vital Signs 04/04/18 12:00 04/04/18 13:00 04/04/18 14:00 Temperature 97.6 F Pulse Rate 58 L 58 L 58 L Respiratory Rate 17 Blood Pressure 126/59 L Pulse Oximetry 96 04/04/18 15:00 04/04/18 15:26 04/04/18 16:00 Temperature 97.8 F Pulse Rate 56 L 59 L 56 L Respiratory Rate 17 Blood Pressure 139/65 Pulse Oximetry 97 04/04/18 17:00 04/04/18 18:00 04/04/18 19:00 Temperature Pulse Rate 60 62 65 Respiratory Rate Blood Pressure Pulse Oximetry 04/04/18 20:00 04/04/18 21:00 04/04/18 22:00 Temperature 98.5 F Pulse Rate 61 60 55 L Respiratory Rate 17 Blood Pressure 147/65 H Pulse Oximetry 98 04/04/18 22:21 04/04/18 22:43 04/04/18 23:00 Temperature Pulse Rate 55 L Respiratory Rate 18 17 Blood Pressure Pulse Oximetry 04/05/18 00:00 04/05/18 01:00 04/05/18 02:00 Temperature 98.0 F Pulse Rate 55 L 54 L 52 L Respiratory Rate 17 Blood Pressure 141/63 H Pulse Oximetry 97 04/05/18 03:00 04/05/18 04:00 04/05/18 05:00 Temperature 98.0 F Pulse Rate 51 L 51 L 57 L Respiratory Rate 17 Blood Pressure 134/64 Pulse Oximetry 94 L 04/05/18 05:58 04/05/18 07:00 04/05/18 08:00 Temperature 97.9 F Pulse Rate 57 L 65 62 Respiratory Rate 18 Blood Pressure 149/65 H Pulse Oximetry 98 04/05/18 08:25 04/05/18 09:00 04/05/18 10:00 Temperature Pulse Rate 59 L 59 L Respiratory Rate 18 Blood Pressure Pulse Oximetry 04/05/18 11:00 04/05/18 11:24 04/05/18 11:43 Temperature 98.0 F Pulse Rate 55 L 55 L Respiratory Rate 18 Blood Pressure 119/52 L Pulse Oximetry 97 97 Intake & Output 04/04/18 04/05/18 04/05/18 18:59 06:59 18:59 Intake Total 480 / 480 670 / 670 Balance 480 / 480 670 / 670 Weight 93.5 kg Intake: IV 250 / 250 Heparin/D5W 25,000 U/250 mL 25, 250 / 250 000 unit In 250 ml @ Per Protocol IV.CONT TITRATE PRN Rx #:[id number] Oral 480 / 480 420 / 420 Other: # Voids 4 4 Date of Last Bowel Movement 04/01/18 - Constitutional no acute distress - Routine HEENT Exam Head: Present: normocephalic Eye: Present: EOMI ENT: Present: mucous membranes moist - Routine Neck Exam Present: supple. Absent: JVD - Routine Respiratory Exam Present: CTA bilaterally - Routine Cardiovascular Exam Present: RRR. Absent: murmur - Routine Abdominal Exam Present: soft - Routine Psychiatric Exam Present: anxious Results 04/05/18 04:10 04/03/18 05:24 Coagulation 04/03/18 04/03/18 04/04/18 Range/Units 16:39 22:58 09:29 APTT 46.2 H D 40.4 H 42.7 H (23.4-31.7) sec 04/05/18 Range/Units 04:10 APTT 44.3 H (23.4-31.7) sec CBC 04/04/18 04/05/18 Range/Units 06:13 04:10 WBC 11.1 H 9.7 (4.0-11.0) th/mm3 RBC 4.57 4.44 (4.00-5.30) mil/mm3 Hgb 14.4 14.0 (11.6-15.3) gm/dL Hct 42.3 41.4 (35.0-46.0) % Plt Count 172 180 (150-450) th/mm3 Intake and Output 04/04/18 04/05/18 04/05/18 22:59 06:59 14:59 Intake Total 730 / 730 420 / 420 Balance 730 / 730 420 / 420 Intake: IV 250 / 250 Heparin/D5W 25,000 U/250 mL 25, 250 / 250 000 unit In 250 ml @ Per Protocol IV.CONT TITRATE PRN Rx #:[id number] Oral 480 / 480 420 / 420 Other: # Voids 4 4 Date of Last Bowel Movement 04/01/18 Weight 93.5 kg - Imaging and Cardiology Imaging: Impressions Venous Doppler Study 04/03/18 00:00 CONCLUSION: 1. The study is negative for bilateral lower extremity deep venous thrombosis. Carotid Doppler Study 04/03/18 13:24 CONCLUSION: 1. Right Internal Carotid Artery: No significant stenosis or atherosclerotic plaque is visualized. 2. Left Internal Carotid Artery: No significant stenosis or atherosclerotic plaque is visualized. Chest X-Ray 04/03/18 13:24 CONCLUSION: Mild increased interstitial markings are noted consistent with mild pulmonary vascular congestion versus pneumonia. Clinical correlation is recommended. Lower Extremity Ultrasound 04/03/18 13:24 CONCLUSION: 1. Venous mapping with saphenous vein measurements described above. 2. No saphenous vein thrombosis noted. Assessment and Plan - Assessment (1) Coronary artery disease involving [place] coronary artery Code(s): I25.10 - Atherosclerotic heart disease of [place] coronary artery without angina pectoris Status: Acute Plan: severe, mv cad, continue med mgt; for cabg this week (2) Acute myocardial infarction Code(s): I21.9 - Acute myocardial infarction, unspecified Status: Acute - Plan 1) NSTEMI Found to have multivessel CAD CT surgery seeing for consideration of CABG, planned for Thursday Con't on heparin drip due to ischemia 2) EF 55-60% 3) Lisinopril held due to plan for open heart surgery 4) Metoprolol changed to BID dosing Spent > 30 mins discussing her case with her in detail
[2018-04-05] MEDS: Heparin Drip 25,000 UNIT/250 ML BAG IV.CONT PRN (20:23)
[2018-04-06] MEDS: Metoprolol Tartrate 25 MG Tablet PO SCH ×2 (08:30→21:47)
[2018-04-06] MEDS: Senna/Docusate Sodium 8.6/50 MG Tablet PO SCH ×2 (08:34→21:49)
[2018-04-06] MEDS: Montelukast 10 MG Tablet PO SCH (08:34)
[2018-04-06] MEDS: Famotidine 20 MG Tablet PO SCH ×2 (08:34→21:48)
[2018-04-06] MEDS: Mupirocin 2% Nasal Oint Topical Syringe EACH NARE SCH ×2 (08:35→21:47)
--- NOTE | 2018-04-06 09:21 | P.PNIM ---
Subjective Interval history: No acute events overnight. No CP. Physical Exam Vital signs: Last Vital Signs Temp 97.6 F 04/06/18 04:00 Pulse 59 L 04/06/18 07:00 Resp 16 04/06/18 08:40 BP 135/64 04/06/18 04:00 Pulse Ox 98 04/06/18 04:00 Intake & Output 04/04/18 04/05/18 04/06/18 04/07/18 06:59 06:59 06:59 06:59 Intake Total 1670 / 1670 1150 / 1150 2230 / 2230 Output Total 3 / 3 Balance 1667 / 1667 1150 / 1150 2230 / 2230 Weight 93 kg 93.5 kg 93 kg Narrative: GENERAL: This is a well-nourished, well-developed patient, in no apparent distress. CARDIOVASCULAR: Normal rate and regular rhythm without murmurs, gallops, or rubs. RESPIRATORY: Good respiratory efforts. Breath sounds equal and clear to auscultation bilaterally. PSYCH: Expressed some anxiety about upcoming heart surgery. Results Labs CBC & Chem 7: 04/05/18 04:10 04/03/18 05:24 Assessment and Plan (1) Coronary artery disease involving [place] coronary artery: Code(s): I25.10 - Atherosclerotic heart disease of [place] coronary artery without angina pectoris Status: Acute (2) Acute myocardial infarction: Code(s): I21.9 - Acute myocardial infarction, unspecified Status: Acute Plan 67-year-old female admitted for N STEMI. Patient underwent heart catheterization which revealed multivessel coronary artery disease. CT surgery consulted to consider CABG. NSTEMI: - Status post heart cath which revealed multivessel disease - CT following and planning for heart catheterization tomorrow - Continue heparin drip, statin beta-florian, - Preserved LVEF on echo HTN -hold lisinopril in anticipation for CABG. Continue beta-florian. Continue to monitor BP GERD - zantac FIBROMYALGIA - pain control TOBACCO ABUSE/NICOTINE ADDICTION - cessation counseling provided OBESITY - bmi 34 -recommend diet and weight loss. DVT prophylaxis - heparin gtt Progress Note: Quality VTE Deep Vein Thrombosis/Pulmonary Embolism Present on Admission: No _ (1) Acute myocardial infarction Qualifiers: Involved coronary artery: Myocardial infarction type: (2) Coronary artery disease involving [place] coronary artery Qualifiers: Associated angina: [place] vs. transplanted heart:
--- NOTE | 2018-04-06 10:43 | P.PNCV ---
- Note Subjective/Hospital Course: Very pleasant 67-year-old female presenting with new onset chest pain described as a pressure sensation. Patient was seen and evaluated emergency department and admitted with the primary diagnosis of acute myocardial infarction (NSTEMI ) . She subsequent underwent a coronary angiogram which reveals multivessel coronary artery disease. I am now being consulted for surgical revascularization therapy. EF 55% At the present time she remains pain-free, hemodynamically stable with no evidence of ongoing ischemia. Review of Systems All other systems reviewed negative except as stated in HPI [facility] - History History Provided By: Patient - Medical History Medical History: Medical History (Last Reviewed 04/02/18 @ 14:11 by Aruna Ritchie RN) Arthritis Fibromyalgia GERD (gastroesophageal reflux disease) Hypertension Non-tuberculous bronchiectasis Seasonal allergies 04/05 pain free, wanted to get second opinion with Dr Cooper prior to surgery on heparin gtt sts data will be documented in computer 04/06 Clinically stable OR in a.m. Objective: Vital Signs - 24 hr 04/05/18 11:00 04/05/18 11:24 04/05/18 11:43 Temperature 98.0 F Pulse Rate 55 L 55 L Respiratory Rate 18 Blood Pressure 119/52 L Pulse Oximetry 97 97 04/05/18 12:00 04/05/18 13:00 04/05/18 14:00 Temperature Pulse Rate 62 63 59 L Respiratory Rate Blood Pressure Pulse Oximetry 04/05/18 14:51 04/05/18 15:00 04/05/18 15:57 Temperature 98.0 F Pulse Rate 54 L 53 L Respiratory Rate 18 18 Blood Pressure 111/53 L Pulse Oximetry 97 04/05/18 15:58 04/05/18 17:00 04/05/18 18:00 Temperature Pulse Rate 59 L 59 L Respiratory Rate 18 Blood Pressure Pulse Oximetry 04/05/18 19:00 04/05/18 20:00 04/05/18 20:20 Temperature 98.0 F Pulse Rate 56 L 55 L Respiratory Rate 17 Blood Pressure 134/64 Pulse Oximetry 98 95 04/05/18 20:38 04/05/18 21:00 04/05/18 22:00 Temperature Pulse Rate 56 L 56 L Respiratory Rate 17 Blood Pressure Pulse Oximetry 04/05/18 22:01 04/05/18 23:00 04/06/18 00:00 Temperature 97.8 F Pulse Rate 56 L 55 L Respiratory Rate 17 17 Blood Pressure 134/64 Pulse Oximetry 95 04/06/18 01:00 04/06/18 02:00 04/06/18 03:00 Temperature Pulse Rate 56 L 56 L 51 L Respiratory Rate Blood Pressure Pulse Oximetry 04/06/18 04:00 04/06/18 05:00 04/06/18 05:13 Temperature 97.6 F Pulse Rate 56 L 58 L 57 L Respiratory Rate 16 Blood Pressure 135/64 Pulse Oximetry 98 04/06/18 07:00 04/06/18 08:00 04/06/18 08:40 Temperature 97.9 F Pulse Rate 59 L 60 Respiratory Rate 16 16 Blood Pressure 136/63 Pulse Oximetry 97 04/06/18 09:00 04/06/18 10:00 Temperature Pulse Rate 61 63 Respiratory Rate Blood Pressure Pulse Oximetry Labs: Laboratory Results - last 12 hr 04/06/18 04/06/18 04/06/18 03:26 03:26 03:26 APTT 42.0 H Blood Type O Positive Blood Type Recheck Required Antibody Screen Negative MTS Gel Crossmatch See Detail 04/06/18 09:55 APTT 39.3 H Blood Type Blood Type Recheck Antibody Screen MTS Gel Crossmatch Result Diagrams: 04/05/18 04:10 04/03/18 05:24 - Plan (1) Coronary artery disease involving [place] coronary artery Plan: ASA, BB for surgery on Thu
[2018-04-06] MEDS: Heparin 10,000 UNITS/10 ML Vial (for IV use) IV.PUSH PRN (12:05)
[2018-04-06] MEDS: Bisacodyl 10 MG Supp RECTAL PRN (15:58)
[2018-04-06] MEDS: Heparin Drip 25,000 UNIT/250 ML BAG IV.CONT PRN (18:25)
[2018-04-07 03:36] LABS: Hematocrit 41.5 % (35.0-46.0); Hemoglobin 13.8 gm/dL (11.6-15.3); Mean Corpuscular HGB Conc 33.4 % (32.0-36.0); Mean Corpuscular Hemoglobin 31.3 pg (27.0-34.0); Mean Corpuscular Volume 93.8 fL (80.0-100.0); Mean Platelet Volume 8.4 fL (7.0-11.0); Platelet Count 178 th/mm3 (150-450); Red Blood Count 4.42 mil/mm3 (4.00-5.30); Red Cell Distribution Width 13.5 % (11.6-17.2); White Blood Count 9.9 th/mm3 (4.0-11.0)
[2018-04-07 03:51] LABS: Calcium 8.2 mg/dL (8.5-10.1); Carbon Dioxide 24.7 meq/L (21.0-32.0); Potassium 3.9 meq/L (3.5-5.1)
[2018-04-07] MEDS: Metoprolol Tartrate 25 MG Tablet PO SCH ×3 (04:48→20:47)
[2018-04-07] MEDS ORDERED: Chlorhexidine Gluconate 2% 1 Pack (2 Cloths) TOPICAL ONE (05:03)
[2018-04-07] MEDS ORDERED: Sodium Chlor 0.9% Inj 500 ML IV.SIG SCH (06:00)
[2018-04-07] MEDS ORDERED: Heparin - SQ 10,000 UNITS/ML Vial ONE (06:33)
[2018-04-07] MEDS ORDERED: fentaNYL Citrate Inj 250 MCG/5 ML Ampul ONE ×2 (07:00→09:08)
[2018-04-07] MEDS ORDERED: Midazolam Inj 5 MG/ML 1 ML Vial ONE ×2 (07:00)
[2018-04-07] MEDS: Senna/Docusate Sodium 8.6/50 MG Tablet PO SCH ×2 (09:56→20:47)
[2018-04-07] MEDS: Mupirocin 2% Nasal Oint Topical Syringe EACH NARE SCH (09:56)
[2018-04-07] MEDS: Famotidine 20 MG Tablet PO SCH ×2 (09:56→20:47)
[2018-04-07] MEDS: Montelukast 10 MG Tablet PO SCH (09:57)
--- NOTE | 2018-04-07 10:49 | P.DCO ---
- Diagnosis (1) S/P CABG (coronary artery bypass graft) Status: Acute (2) Coronary artery disease involving [place] coronary artery Status: Acute (3) Acute myocardial infarction Status: Acute - Home Health Nursing Order: Medical education, Signs/symptoms of disease process, Wound care and dressing changes, Nursing assessment with vital signs Instructions: Heart and Vascular Surgery patients *Special attention to sternal dressing Mandatory frequency Assess and evaluation, 4 days in a row The next week 3X week 2 times a week for 4 weeks 1 time a week for 5 weeks Schedule Heart and Vascular patients for full 60 day certification period Initial visit Review Open Heart Surgery Discharge Instructions (Sternal precautions, Activity, Elastic hose, Incision care, Driving, Incentive spirometry, Smoking, [place], Work and other) Need Betadine to paint incision Medication reconciliation Importance of follow up care/ check on appointments Make calendar record temperature daily When to call [facility] at Home nurse, review instructions, phone list Incentive Spirometry, demonstration Visit 1- Begin discharge instruction for patient family and/ or caregiver using teach back method- Signs and symptoms of infection Disease characteristics Medicines and side effects Foods and nutrition/ appetite Infection control/ hand washing/ hygiene Visit 2- Continue teaching Discharge instructions- include additional information on smoking cessation , sternal dressing (sternal vac) Visit 3- Continue teaching- Cough and deep breathing, incision monitoring. Choose my plate Visit 4- Continue teaching- Discuss limitations Discuss how they are feeling Discuss progress toward goals Remaining visits- continue teaching and monitoring For any questions please call : Thursday 8am-5pm Heart & Vascular Surgery Office ( Dr. Malhotra & Dr. Estes), After Hours / Nights (5pm -8am) Weekends and Holidays Please call [facility] Cardiac Intermediate Care Unit (CIC) Charge Nurse PREVENA Single Use Negative Wound Therapy System Caregiver Instruction Sheet 1. A Prevena dressing system was applied to the chest incision during surgery , to promote wound healing. It works via a suction device (negative pressure wound therapy) to remove low to moderate levels of exudate (drainage) and infectious materials. We recommend that the device stay in place for up to seven days, from day of surgery. 2. Day of Surgery___/ Day of Removal ____/08/28 3. The dressing should only be removed by a health career development engineer. Please arrange removal of device to coincide with Home Health visit and or with Nursing staff at Rehab 4. If skin reddening or irritation of skin occurs, or excessive drainage, please notify the Cardiovascular Surgeons office at [phone]. 5. Light showering is permissible; however the pump should be disconnected and placed in safe location, where it will not get wet. The dressing should not be exposed to direct spray or submerged in water. No bath tub / shower only. Ensure the end of the tubing attached to the dressing is facing down so that water does not enter the top of the tube. 6. To remove Prevena dressing: press purple button to turn off device / remove the suction. Then disconnect the tubing from the pump. The fixation strips should be stretched away from the skin and the dressing lifted at one corner and peeled back until it has been fully removed. 7. After removal, it is ok to shower daily using liquid dial soap and clean wash cloth, rinse and pat dry, and leave incision open to air dry. For any concerns regarding Prevena dressing, and or wounds, please contact Alejandra Mccann, patient navigator at [phone] or notify the Cardiovascular Surgeons office at [phone]. Incentive spirometry Q1 hr x 10, while awake, also use acapella device hourly whole awake Sternal Breast Bone Precautions: NO pushing or pulling, ( pt must use sternal pillow to support chest with all activities and with coughing ( takes up to 3 months breast bone to heal ) All females to wear sternal bra , launder as needed Daily incision care: ok to shower daily, no tub bath. Wash all incisions with liquid dial soap, clean wash cloth to each site, rinse and pat dry. Observe for any signs of infection, such as drainage which is dark yellow, [place], green or foul smelling. Immediately report to the surgeon any drainage from the chest incision, or legs, and for any abnormal drainage from the chest tube sites. Notify surgeon if any temp >101.5 degrees F. When specialty dressing removed/ or if you do not have one, continue to shower daily as above, then rinse and pat incision dry and paint with betadine daily x 5 days. Allow steri strips to fall off if you have any. Avoid lotions, creams, salves, oils, etc. for the first month Please see attached forms for additional instructions regarding post Open Heart specialty wound vacuum dressings. ALO or Prevena , Dressing to be removed by Nursing staff on _04/17/17 F/U appointment: as per DC instructions: PCP in 2 weeks, CV surgeon 2 weeks, Interior Block Wirer 3-4 weeks For any questions regarding incisions/ dressing / meds / post op care or above Symptoms, Thursday 8am-5pm Heart & Vascular Surgery Office ( Dr. Malhotra & Dr. Estes), After Hours / Nights (5pm -8am) Weekends and Holidays Please call [facility] Cardiac Intermediate Care Unit (CIC) Charge Nurse - Case Management Consult Case Management Consult-Home Health: Yes - Certification I have seen patient Linda Chaudhary on 04/07/18. My clinical findings support the need for the requested home health care services because: Deconditioned with increased weakness I certify that my clinical findings support that this patient is homebound because: Post-op weakness
[2018-04-07] MEDS ORDERED: Clevidipine Inj 25 MG/50 ML VIAL ONE (11:24)
[2018-04-07] MEDS ORDERED: Clevidipine Inj 25 MG/50 ML VIAL IV.CONT PRN (11:36)
[2018-04-07] MEDS ORDERED: RESP: Racemic Epinephrine 2.25% 0.5 ML Neb NEB PRN (11:36)
[2018-04-07] MEDS ORDERED: Dexmedetomidine Inj 200 MCG in Sodium Chlor 0.9% Inj 50 ML IV.CONT PRN (11:36)
[2018-04-07] MEDS ORDERED: Dextrose 50% in Water 50 ML Vial IV.PUSH PRN (11:36)
[2018-04-07] MEDS ORDERED: Metoprolol Inj 5 MG/5 ML Vial IV.PUSH PRN (11:36)
[2018-04-07] MEDS ORDERED: Post-op Orders (for Pharmacy) OTHER STA (11:36)
[2018-04-07] MEDS ORDERED: Calcium Chloride Inj 1 GM/10 ML Syringe IV.PUSH PRN (11:36)
[2018-04-07] MEDS ORDERED: Potassium Chlor 20 mEq Premix 20 MEQ/100 ML PIGGYBACK IV.SIG PRN ×2 (11:36)
[2018-04-07] MEDS ORDERED: Insulin Regular (For Infusion) 100 UNIT in Sodium Chlor 0.9% Inj 99 ML IV.CONT PRN (11:36)
[2018-04-07] MEDS ORDERED: Calcium Chloride Inj 1 GM in Sodium Chlor 0.9% Inj 100 ML IV.SIG PRN (11:36)
[2018-04-07] MEDS ORDERED: Albumin Human 5% Inj 250 ML IV.SIG PRN (11:36)
[2018-04-07] MEDS ORDERED: Magnesium Sulfate Inj 2 GM in Sodium Chlor 0.9% Inj 96 ML IV.SIG PRN ×4 (11:36)
--- NOTE | 2018-04-07 11:46 | P.OP ---
Date of procedure: 04/07/18 Anesthesia: GETA Surgeon: Marek Malhotra MD Operation and Findings: PREPROCEDURE DIAGNOSES 1. Severe Multi Vessel Coronary Artery Disease. 2. Acute Myocardial Infarction 3. Intramyocardial Coronary Vessels POSTPROCEDURE DIAGNOSES Same SURGICAL PROCEDURE 1. Urgent Off-pump Coronary Artery Bypass Grafting x 2 with Left Internal Mammary Artery (HINDS) to Left Anterior Descending (LAD), reverse saphenous vein graft to the posterior Descending branch of the right Coronary artery 2. Left leg Endoscopic Vein [place] 3. Ultrasound Guided Dissection of the Coronary Arteries 4. Intraoperative Vein Mapping. SURGEON Marek Malhotra MD [facility] Lawanda Duarte, [facility] ANESTHESIA General endotracheal FAMILY MEDICINE PHYSICIAN ASSISTANT DEMETRIO Serrano MD PREPARATION ChloraPrep. COUNTS Needle, sponge, and instrument counts were correct. DRAINS Two 32-Romansh mediastinal tubes. COMPLICATIONS None. INDICATIONS FOR PROCEDURE The patient is a 67-year-old presenting with chest pain. Patient was noted to have multi vessel coronary artery disease. The patient is being brought to the operating room for surgical revascularization therapy. PROCEDURE Patient was brought to the operating room and placed supine on the OR table. Following the induction of adequate general endotracheal anesthesia and placement of appropriate monitoring devices, intraoperative vein mapping was performed which revealed large but usable-caliber conduit in bilateral lower extremities. The patient was then prepped and draped in standard sterile fashion. Next, 2500 units of intravenous heparin was given. The left greater saphenous vein was harvested endoscopically. This appeared to be a useable- caliber conduit. Simultaneously, a median sternotomy was performed and the left internal mammary artery dissected free off the posterior sternal table. The patient was systemically heparinized and anticoagulation monitored by serial ACT measurements. The internal mammary artery had excellent pulsatile flow in it and was a good-caliber conduit. The pericardium was then divided in the midline, the cradle created and targets analyzed. At this point, all anastomoses were performed in a beating-heart fashion using the Maquet stabilizing system. The LAD was noted to be deeply intramyocardial. The hand- held ultrasound probe was used to identify and isolate a segment for bypass. The left internal mammary artery was anastomosed to the distal LAD (1.75 mm) in an end-to-side fashion using 7-0 Prolene. Segment of saphenous vein graft was then anastomosed to the RPDA (1.25 mm) in an end-to-side fashion using 7-0 Prolene. The circumflex territory was explored exhaustively. The ramus/OM1 was identified but no other targets were identifiable in the circumflex territory worth bypassing. A very small OM 2 (less than 1 mm) was identified but deemed not to be bypassable target. The proximal anastomosis was then constructed to the ascending aorta in a running manner using 6-0 Prolene. All anastomotic sites were inspected and appeared to be hemostatic and patent. Protamine solution was given. Strict hemostasis was assured. The closure was undertaken. 2 chest tubes were placed. The pericardium was reapproximated in the midline. The sternum was approximated using sternal wires. The muscular and fascial layer were then closed in 3 layers. The endoscopic vein harvest site was closed in 2 layers. The patient tolerated the procedure well and was transferred to CVICU in stable condition.
[2018-04-07] MEDS ORDERED: Vancomycin Inj 1,500 MG in Sodium Chlor 0.9% Inj 250 ML IV.SIG SCH (12:00)
[2018-04-07] MEDS ORDERED: Potassium Chlor 20 mEq Premix 20 MEQ/100 ML PIGGYBACK IV.SIG ONE (12:09)
[2018-04-07] MEDS: Potassium Chlor 20 mEq Premix 20 MEQ/100 ML PIGGYBACK IV.SIG PRN ×2 (12:15→15:15)
--- NOTE | 2018-04-07 12:46 | XR ---
EXAM DATE: 04/07/2018 12:42 PM EST AGE/SEX: 67 years / Female INDICATIONS: Post op CABG. CLINICAL DATA: This is the patient's subsequent encounter. Patient reports that signs and symptoms h ave been present for 4 - 6 days and indicates a pain score of Nonresponsive. MEDICAL/SURGICAL HISTORY: . Gastroesophageal reflux disease. Hypertension. Arthritis. Fibromyal ronan. . Exploratory Laparotomy. COMPARISON: [facility] – [place], CHEST 2V PA&LAT, 04/03/2018. . FINDINGS: Endotracheal tube has its tip in good position 3 cm above the jesse. Mediastinal drain and left ches t tube are in good positions. Nasogastric tube has its tip in the stomach. Right internal jugular fabiano tral line has its tip in the right atrium. Median sternotomy wires are noted status post cardiac surg shweta. The heart is mildly prominent. Minimal central pulmonary vascular congestion is noted. Atelectat ic changes are noted within left upper lung field. No pneumothorax is noted. Degenerative changes are noted throughout the thoracic spine. CONCLUSION: 1. Minimal central pulmonary vascular congestion. 2. Left upper lobe atelectasis. 3. Cardiomegaly. 4. Multiple tubes and lines in good positions. Electronically signed by: Alex Spivey MD Board Certified Radiologist 04/07/2018 12:45 PM EST
[2018-04-07] MEDS ORDERED: Albumin Human 5% Inj 250 ML IV.SIG ONE (13:44)
[2018-04-07] MEDS: Ketorolac Inj 30 MG/ML (IVP) Vial IV.PUSH PRN ×2 (14:20→22:56)
[2018-04-07] MEDS ORDERED: Morphine Inj 4 MG/ML Vial IV.PUSH PRN (15:00)
[2018-04-07] MEDS: fentaNYL Citrate Inj 100 MCG/2 ML Ampul IV.PUSH PRN ×5 (16:05→22:05)
[2018-04-07] MEDS: Amiodarone 200 MG Tablet PO SCH (20:47)
[2018-04-07] MEDS: Vancomycin Inj 1,500 MG in Sodium Chlor 0.9% Inj 500 ML IV.SIG SCH (20:47)
[2018-04-08] MEDS: fentaNYL Citrate Inj 100 MCG/2 ML Ampul IV.PUSH PRN ×4 (01:09→05:50)
--- NOTE | 2018-04-08 04:25 | XR ---
EXAM DATE: 04/08/2018 4:04 AM EST AGE/SEX: 67 years / Female INDICATIONS: Post op CABG. CLINICAL DATA: This is the patient's subsequent encounter. Patient reports that signs and symptoms h ave been present for 2 days and indicates a pain score of 10/10. MEDICAL/SURGICAL HISTORY: . Gastroesophageal reflux disease. Hypertension. Arthritis. Fibromyal ronan. CABG. COMPARISON: [facility], CHEST 1V SINGLE AP, 04/07/2018. . FINDINGS: Patient has been extubated and NGT removed. Stable right IJ central line, mediastinal drain and left chest tube in place. Improved aeration in the left upper lung zone. No significant pneumothorax. Card iomediastinal contours are stable. Remainder of the exam is unchanged. CONCLUSION: 1. Patient has been extubated with NGT removed. Remaining tubes and lines are stable. 2. No significant pneumothorax with improved aeration in the left upper lung zone. Electronically signed by: Constantino Juarez MD Board Certified Radiologist 04/08/2018 4:23 AM ANAHI Raya
[2018-04-08 04:56] LABS: Hematocrit 37.5 % (35.0-46.0); Hemoglobin 12.2 gm/dL (11.6-15.3); Mean Corpuscular HGB Conc 32.6 % (32.0-36.0); Mean Corpuscular Hemoglobin 30.8 pg (27.0-34.0); Mean Corpuscular Volume 94.4 fL (80.0-100.0); Mean Platelet Volume 8.1 fL (7.0-11.0); Platelet Count 159 th/mm3 (150-450); Red Blood Count 3.97 mil/mm3 (4.00-5.30); Red Cell Distribution Width 13.9 % (11.6-17.2); White Blood Count 11.3 th/mm3 (4.0-11.0)
[2018-04-08 05:22] LABS: Anion Gap 9 meq/L (5-15); Blood Urea Nitrogen 13 mg/dL (7-18); Carbon Dioxide 24.3 meq/L (21.0-32.0); Chloride 106 meq/L (98-107); Glomerular Filtration Rate Greater Than 89 mL/min (>89); Glucose,Random 101 mg/dL (74-106); Magnesium 2.1 mg/dL (1.5-2.5); Potassium 4.6 meq/L (3.5-5.1); Sodium 139 meq/L (136-145)
[2018-04-08] MEDS: Ketorolac Inj 30 MG/ML (IVP) Vial IV.PUSH PRN ×3 (07:15→18:28)
--- NOTE | 2018-04-08 08:17 | ECG ---
Date Performed: 04/08/2018 Time Performed: 05:18:34 PTAGE: 67 years EKG: CONSIDER ACUTE ST ELEVATION CA Sinus rhythm Possible inferior infarct - age undetermined Baseline artifact in the precordial leads Lateral ST el evation potentially concerning for an acute injury pattern. Acute ST elevation CA cannot be completel y excluded. Abnormal ECG PREVIOUS TRACING :12/09/2017 @12.00 Compared to previous tracing, there is a lateral ST elevati on concerningn for an acute infarction. Clinical correlation is recommended DOCTOR: Ellie Miranda Interpretating Date/Time 04/08/2018 08:15:21
[2018-04-08] MEDS ORDERED: Dextrose 50% in Water 50 ML Vial IV.PUSH PRN (08:41)
[2018-04-08] MEDS ORDERED: Sod Phosphate/Sod Biphosphate (Adult) Enema 133 ML Bottle RECTAL PRN (08:41)
[2018-04-08] MEDS ORDERED: Bisacodyl 10 MG Supp RECTAL PRN (08:41)
--- NOTE | 2018-04-08 08:49 | P.PNCV ---
- Note Subjective/Hospital Course: Very pleasant 67-year-old female presenting with new onset chest pain described as a pressure sensation. Patient was seen and evaluated emergency department and admitted with the primary diagnosis of acute myocardial infarction (NSTEMI ) . She subsequent underwent a coronary angiogram which reveals multivessel coronary artery disease. I am now being consulted for surgical revascularization therapy. EF 55% At the present time she remains pain-free, hemodynamically stable with no evidence of ongoing ischemia. Review of Systems All other systems reviewed negative except as stated in HPI [facility] - History History Provided By: Patient - Medical History Medical History: Medical History (Last Reviewed 04/02/18 @ 14:11 by Aruna Ritchie RN) Arthritis Fibromyalgia GERD (gastroesophageal reflux disease) Hypertension Non-tuberculous bronchiectasis Seasonal allergies 04/05 pain free, wanted to get second opinion with Dr Cooper prior to surgery on heparin gtt sts data will be documented in computer 04/06 Clinically stable OR in a.m. 04/07 Date of procedure: 04/07/18 Anesthesia: GETA Surgeon: Marek Malhotra MD Operation and Findings: PREPROCEDURE DIAGNOSES 1. Severe Multi Vessel Coronary Artery Disease. 2. Acute Myocardial Infarction 3. Intramyocardial Coronary Vessels POSTPROCEDURE DIAGNOSES Same SURGICAL PROCEDURE 1. Urgent Off-pump Coronary Artery Bypass Grafting x 2 with Left Internal Mammary Artery (HINDS) to Left Anterior Descending (LAD), reverse saphenous vein graft to the posterior Descending branch of the right Coronary artery 2. Left leg Endoscopic Vein Mozelle 3. Ultrasound Guided Dissection of the Coronary Arteries 4. Intraoperative Vein Mapping. + extubated after surgery crystalloid 2500cc, cell saver 150cc, EBL 300CC 04/08 pt up in chair, on nasal cannula start BB, ASA, plavix, amiodarone pulm toileting OOB, PT xanax prn for anxiety Objective: Vital Signs - 24 hr 04/07/18 12:05 04/07/18 12:07 04/07/18 12:20 Temperature 96.3 F L Pulse Rate 66 Respiratory Rate 15 Blood Pressure Pulse Oximetry 99 04/07/18 12:35 04/07/18 13:10 04/07/18 14:02 Temperature 96.4 F L 97.3 F L Pulse Rate 58 L Respiratory Rate 16 15 Blood Pressure 99/57 L Pulse Oximetry 99 96 04/07/18 14:10 12/26/18 15:01 04/07/18 15:17 Temperature 97.7 F Pulse Rate Respiratory Rate 12 Blood Pressure Pulse Oximetry 98 100 04/07/18 15:24 04/07/18 15:35 04/07/18 15:51 Temperature 97.7 F 98 F Pulse Rate 61 63 Respiratory Rate 11 L Blood Pressure 127/55 L Pulse Oximetry 99 04/07/18 16:12 04/07/18 16:20 04/07/18 16:30 Temperature 98.1 F Pulse Rate 94 H Respiratory Rate 18 Blood Pressure Pulse Oximetry 99 04/07/18 18:34 04/07/18 19:00 04/07/18 21:02 Temperature 98.5 F 97.5 F L Pulse Rate 77 78 Respiratory Rate 18 16 Blood Pressure 106/67 Pulse Oximetry 99 99 04/07/18 23:00 04/08/18 00:00 04/08/18 03:00 Temperature 97.8 F 98.1 F Pulse Rate 81 79 Respiratory Rate 18 18 18 Blood Pressure 126/66 110/66 Pulse Oximetry 98 98 04/08/18 04:05 04/08/18 07:55 04/08/18 08:05 Temperature 98.1 F Pulse Rate 78 81 Respiratory Rate 14 18 Blood Pressure 115/64 Pulse Oximetry 98 98 GENERAL: A&O x 3 SKIN: Warm and dry. prevena dressing to chest , lili wrap to left leg HEAD: Normocephalic. EYES: No scleral icterus. No injection or drainage. NECK: Supple, trachea midline. No JVD or lymphadenopathy. CARDIOVASCULAR: Regular rate and rhythm without murmurs, gallops, or rubs. RESPIRATORY: Breath sounds equal bilaterally. No accessory muscle use. chest tube in place to wall suction, no air leak GASTROINTESTINAL: Abdomen soft, non-tender, nondistended. MUSCULOSKELETAL: No cyanosis, or edema. BACK: Nontender without obvious deformity. No CVA tenderness. Labs: Laboratory Results - last 12 hr 04/07/18 04/08/18 04/08/18 22:22 01:07 04:12 WBC RBC Hgb Hct MCV MCH MCHC RDW Plt Count MPV Sodium Potassium Chloride Carbon Dioxide Anion Gap BUN Creatinine Estimated GFR POC Glucose 101 96 87 Random Glucose Calcium Magnesium 04/08/18 04/08/18 04/08/18 04:40 04:40 07:10 WBC 11.3 H RBC 3.97 L Hgb 12.2 Hct 37.5 MCV 94.4 MCH 30.8 MCHC 32.6 RDW 13.9 Plt Count 159 MPV 8.1 Sodium 139 Potassium 4.6 Chloride 106 Carbon Dioxide 24.3 Anion Gap 9 BUN 13 Creatinine 0.56 Estimated GFR Greater than 89 POC Glucose 97 Random Glucose 101 Calcium 8.0 L Magnesium 2.1 Result Diagrams: 04/08/18 04:40 04/08/18 04:40 Telemetry: NSR - Plan (1) S/P CABG (coronary artery bypass graft) Plan: Neuro: prn xanax for anxiety Resp: pulm toileting nebs ezpap [place]ella CV: BB ASA statin , amiodarone eval or diuresis GI: heart healthy diet gi motility meds + prophy : protonix will transfer to stepdown unit (2) Coronary artery disease involving [place] coronary artery Plan: ASA, BB for surgery on Thu
[2018-04-08] MEDS: Metoprolol Tartrate 25 MG Tablet PO SCH ×3 (09:13→20:58)
[2018-04-08] MEDS: Vancomycin Inj 1,500 MG in Sodium Chlor 0.9% Inj 500 ML IV.SIG SCH ×2 (09:13→20:58)
[2018-04-08] MEDS: Senna/Docusate Sodium 8.6/50 MG Tablet PO SCH ×2 (09:14→20:57)
[2018-04-08] MEDS: Amiodarone 200 MG Tablet PO SCH ×2 (09:14→20:57)
[2018-04-08] MEDS: Famotidine 20 MG Tablet PO SCH ×2 (09:15→20:57)
[2018-04-08] MEDS: Multivitamin/Minerals Therapeutic Tablet PO SCH (09:16)
[2018-04-08] MEDS: Montelukast 10 MG Tablet PO SCH (09:16)
[2018-04-08] MEDS: Insulin NovoLOG Aspart Correctional Sugar Inj SQ SCH ×4 (09:46→22:00)
--- NOTE | 2018-04-08 10:05 | P.PNIM ---
Subjective Interval history: The pt was in a lot of pain. She described generalized body pain. She also had some shortness of breath. She was tolerating a diet. She requested increased pain control. She said she has been struggling with costochondritis for a long time. Discussed with nursing at the bedside. Physical Exam Vital signs: Vital Signs 04/07/18 12:05 04/07/18 12:07 04/07/18 12:20 Temperature 96.3 F L Pulse Rate 66 Respiratory Rate 15 Blood Pressure Pulse Oximetry 99 04/07/18 12:35 04/07/18 13:10 04/07/18 14:02 Temperature 96.4 F L 97.3 F L Pulse Rate 58 L Respiratory Rate 16 15 Blood Pressure 99/57 L Pulse Oximetry 99 96 04/07/18 14:10 04/07/18 15:01 04/07/18 15:17 Temperature 97.7 F Pulse Rate Respiratory Rate 12 Blood Pressure Pulse Oximetry 98 100 04/07/18 15:24 04/07/18 15:35 04/07/18 15:51 Temperature 97.7 F 98 F Pulse Rate 61 63 Respiratory Rate 11 L Blood Pressure 127/55 L Pulse Oximetry 99 04/07/18 16:12 04/07/18 16:20 04/07/18 16:30 Temperature 98.1 F Pulse Rate 94 H Respiratory Rate 18 Blood Pressure Pulse Oximetry 99 04/07/18 18:34 04/07/18 19:00 04/07/18 21:02 Temperature 98.5 F 97.5 F L Pulse Rate 77 78 Respiratory Rate 18 16 Blood Pressure 106/67 Pulse Oximetry 99 99 04/07/18 23:00 04/08/18 00:00 04/08/18 03:00 Temperature 97.8 F 98.1 F Pulse Rate 81 79 Respiratory Rate 18 18 18 Blood Pressure 126/66 110/66 Pulse Oximetry 98 98 04/08/18 04:05 04/08/18 07:55 04/08/18 08:05 Temperature 98.1 F Pulse Rate 78 81 Respiratory Rate 14 18 Blood Pressure 115/64 Pulse Oximetry 98 98 Intake & Output 04/07/18 04/08/18 04/08/18 18:59 06:59 18:59 Intake Total 4489 / 4489 1195 / 1195 0 / 0 Output Total 1485 / 1485 1120 / 1120 Balance 3004 / 3004 75 / 75 0 / 0 Weight 96.5 kg Intake: IV 1689 / 1689 715 / 715 0 / 0 Heparin/D5W 25,000 U/250 mL 25, 0 / 0 000 unit In 250 ml @ Per Protocol IV.CONT TITRATE PRN Rx #:[id number] NovoLIN R (IV Infusion) 100 14 / 14 0 / 0 UNIT In NS Inj 99 ML @ 3 UNITS/ HR 3 mls/hr IV.CONT TITRATE PRN Rx#:[id number] Ofirmev Inj 1,000 mg In 100 ml 100 / 100 200 / 200 @ 400 mls/hr IV.SIG Q6H MARYLOU Rx# :[id number] Buminate 5% Inj 250 ML @ 250 250 / 250 mls/hr IV.SIG UNSCH PRN Rx#: [id number] Calcium Chloride Inj 1 GM In NS 110 / 110 Inj 100 ML @ 100 mls/hr IV.SIG PRN PRN Rx#:[id number] LR 1000 mL Inj 500 ML @ 500 mls 500 / 500 /hr IV.SIG .Q1H PRN Rx#: [id number] KCl 20 mEq Premix Inj 20 meq In 200 / 200 100 ml @ 50 mls/hr IV.SIG PRN PRN Rx#:[id number] Vancomycin Inj 1,500 MG In NS 515 / 515 515 / 515 Inj 500 ML @ 250 mls/hr IV.SIG Q12H MARYLOU Rx#:[id number] Oral 150 / 150 480 / 480 Anesthesia Amount 2500 / 2500 Cell Saver Amount 150 / 150 Output: Estimated Blood Loss 300 / 300 Urine Amount (Catheter) 925 / 925 890 / 890 Indwelling Temp Sensing 925 / 925 890 / 890 Catheter Chest Tube Drainage 260 / 260 230 / 230 Pleural/Mediastinal 260 / 260 230 / 230 Narrative: GENERAL: This is a well-nourished, well-developed patient, appearing uncomfortable. HEENT: NC, AT. CARDIOVASCULAR: Normal rate and regular rhythm without murmurs, gallops, or rubs. RESPIRATORY: Good respiratory efforts. Breath sounds equal and clear to auscultation bilaterally. ABDOMEN: Soft, NT, ND. EXTREMITIES: No edema. NEURO: No gross deficits. - Urinary Catheter Management Indwelling Temp Sensing Catheter Cath placed during this visit: yes, but has since been removed by the nurse Reason for continuing: Decision to DC catheter Insertion date: 04/07/18 Insertion time: 08:00 Removal date: 04/08/18 Removal time: 06:00 Results - Labs CBC & Chem 7: 04/08/18 04:40 04/08/18 04:40 Laboratory Results - last 24 hr 04/06/18 04/07/18 04/07/18 03:26 13:07 17:15 WBC RBC Hgb Hct MCV MCH MCHC RDW Plt Count MPV Sodium Potassium Chloride Carbon Dioxide Anion Gap BUN Creatinine Estimated GFR POC Glucose 115 H 111 H Random Glucose Calcium Magnesium MTS Gel Crossmatch See Detail 04/07/18 04/07/18 04/07/18 18:16 19:13 22:22 WBC RBC Hgb Hct MCV MCH MCHC RDW Plt Count MPV Sodium Potassium Chloride Carbon Dioxide Anion Gap BUN Creatinine Estimated GFR POC Glucose 106 106 101 Random Glucose Calcium Magnesium MTS Gel Crossmatch 04/08/18 04/08/18 04/08/18 01:07 04:12 04:40 WBC 11.3 H RBC 3.97 L Hgb 12.2 Hct 37.5 MCV 94.4 MCH 30.8 MCHC 32.6 RDW 13.9 Plt Count 159 MPV 8.1 Sodium Potassium Chloride Carbon Dioxide Anion Gap BUN Creatinine Estimated GFR POC Glucose 96 87 Random Glucose Calcium Magnesium MTS Gel Crossmatch 04/08/18 04/08/18 04/08/18 04:40 07:10 09:36 WBC RBC Hgb Hct MCV MCH MCHC RDW Plt Count MPV Sodium 139 Potassium 4.6 Chloride 106 Carbon Dioxide 24.3 Anion Gap 9 BUN 13 Creatinine 0.56 Estimated GFR Greater than 89 POC Glucose 97 117 H Random Glucose 101 Calcium 8.0 L Magnesium 2.1 MTS Gel Crossmatch - Imaging Impressions Chest X-Ray 04/07/18 11:37 CONCLUSION: 1. Minimal central pulmonary vascular congestion. 2. Left upper lobe atelectasis. 3. Cardiomegaly. 4. Multiple tubes and lines in good positions. Chest X-Ray 04/08/18 05:00 CONCLUSION: 1. Patient has been extubated with NGT removed. Remaining tubes and lines are stable. 2. No significant pneumothorax with improved aeration in the left upper lung zone. Assessment and Plan - Assessment (1) Coronary artery disease involving [place] coronary artery Code(s): I25.10 - Atherosclerotic heart disease of [place] coronary artery without angina pectoris Status: Acute (2) Acute myocardial infarction Code(s): I21.9 - Acute myocardial infarction, unspecified Status: Acute - Plan 67-year-old female admitted for NSTEMI. Patient underwent heart catheterization which revealed multivessel coronary artery disease. CT surgery was consulted to consider CABG. NSTEMI Status post heart cath which revealed multivessel disease. Preserved EF on echo. CT surgery consult appreciated. S/p CABG 04/08. S/p heparin drip. -continue cardiac regimen including statin and beta-florian. -increase pain control. Pt has underlying fibromyalgia. -telemetry. -management per CTS. HTN Well controlled. -continue beta-florian. -ACEi on hold. Nicotine abuse -cessation counseling provided. Morbid obesity BMI 34. -recommend diet and weight loss. Leukocytosis Likely reactive. -follow CBC. DVT prophylaxis: Per surgery
[2018-04-08] MEDS: Docusate Sodium 100 MG Capsule PO SCH (20:57)
[2018-04-09] MEDS: Ketorolac Inj 30 MG/ML (IVP) Vial IV.PUSH PRN ×2 (01:02→10:00)
[2018-04-09] MEDS: Insulin NovoLOG Aspart Correctional Sugar Inj SQ SCH ×5 (02:00→21:00)
[2018-04-09] MEDS: Acetaminophen 325 MG Tablet PO PRN ×2 (03:57→21:30)
[2018-04-09 05:42] LABS: Baso % (Auto) 0.5 % (0.0-2.0); Eos # (Auto) 0.3 th/mm3 (0.0-0.4); Eos % (Auto) 3.1 % (0.0-4.0); Hematocrit 30.8 % (35.0-46.0); Hemoglobin 10.4 gm/dL (11.6-15.3); Lymph # (Auto) 1.9 th/mm3 (1.0-4.8); Mean Corpuscular HGB Conc 33.9 % (32.0-36.0); Mean Corpuscular Hemoglobin 32.1 pg (27.0-34.0); Mean Corpuscular Volume 94.8 fL (80.0-100.0); Mean Platelet Volume 8.4 fL (7.0-11.0); Mono # (Auto) 0.9 th/mm3 (0.0-0.9); Mono % (Auto) 9.7 % (0.0-8.0); Neut # (Auto) 6.4 th/mm3 (1.8-7.7); Neut % (Auto) 66.7 % (16.0-70.0); Platelet Count 129 th/mm3 (150-450); Red Blood Count 3.25 mil/mm3 (4.00-5.30); White Blood Count 9.6 th/mm3 (4.0-11.0)
[2018-04-09 06:04] LABS: Anion Gap 5 meq/L (5-15); Blood Urea Nitrogen 16 mg/dL (7-18); Calcium 7.6 mg/dL (8.5-10.1); Carbon Dioxide 28.3 meq/L (21.0-32.0); Chloride 106 meq/L (98-107); Glomerular Filtration Rate Greater Than 89 mL/min (>89); Glucose,Random 94 mg/dL (74-106); Magnesium 2.3 mg/dL (1.5-2.5); Potassium 4.4 meq/L (3.5-5.1); Sodium 139 meq/L (136-145)
[2018-04-09] MEDS: Docusate Sodium 100 MG Capsule PO SCH ×2 (09:39→21:21)
[2018-04-09] MEDS: Metoprolol Tartrate 25 MG Tablet PO SCH ×2 (09:39→21:21)
[2018-04-09] MEDS: Montelukast 10 MG Tablet PO SCH (09:39)
[2018-04-09] MEDS: Famotidine 20 MG Tablet PO SCH ×2 (09:39→21:22)
[2018-04-09] MEDS: Amiodarone 200 MG Tablet PO SCH ×2 (09:39→21:21)
[2018-04-09] MEDS: Senna/Docusate Sodium 8.6/50 MG Tablet PO SCH ×2 (09:39→21:21)
[2018-04-09] MEDS: Multivitamin/Minerals Therapeutic Tablet PO SCH (09:39)
[2018-04-09] MEDS: Polyethylene Glycol 3350 17 GM Packet PO SCH (09:40)
--- NOTE | 2018-04-09 09:40 | P.PNIM ---
Subjective Interval history: The pt was sitting up in a chair. She said her pain was better controlled. She has been coughing up red-tinged mucous. She says the breathing treatments have helped. Discussed with family and nursing. Physical Exam Vital signs: Vital Signs 04/08/18 10:57 04/08/18 11:21 04/08/18 11:30 Temperature 97.6 F Pulse Rate 78 80 Respiratory Rate 19 Blood Pressure 121/57 L Pulse Oximetry 95 95 04/08/18 12:00 04/08/18 12:35 04/08/18 14:48 Temperature 97.5 F L Pulse Rate 74 75 75 Respiratory Rate 18 Blood Pressure 120/59 L Pulse Oximetry 95 04/08/18 15:06 04/08/18 16:14 04/08/18 17:14 Temperature Pulse Rate 71 70 72 Respiratory Rate Blood Pressure Pulse Oximetry 04/08/18 18:00 04/08/18 19:00 04/08/18 19:57 Temperature 98.0 F Pulse Rate 77 67 67 Respiratory Rate 18 Blood Pressure 90/47 L Pulse Oximetry 92 L 04/08/18 20:00 04/08/18 20:48 04/08/18 21:00 Temperature Pulse Rate 70 69 67 Respiratory Rate 16 Blood Pressure Pulse Oximetry 98 04/08/18 22:00 04/08/18 23:00 04/09/18 00:00 Temperature 98.1 F Pulse Rate 67 75 75 Respiratory Rate 18 Blood Pressure 109/54 L Pulse Oximetry 97 04/09/18 01:00 04/09/18 02:00 04/09/18 03:00 Temperature Pulse Rate 75 73 72 Respiratory Rate Blood Pressure Pulse Oximetry 04/09/18 03:40 04/09/18 04:00 04/09/18 05:00 Temperature 97.9 F Pulse Rate 78 78 74 Respiratory Rate 20 Blood Pressure 97/55 L Pulse Oximetry 96 04/09/18 06:00 04/09/18 07:00 04/09/18 09:16 Temperature 98.3 F Pulse Rate 74 82 90 Respiratory Rate 16 17 Blood Pressure 105/54 L Pulse Oximetry 95 96 Intake & Output 04/08/18 04/09/18 04/09/18 18:59 06:59 18:59 Intake Total 1015 / 1015 1415 / 1415 Output Total 610 / 610 70 / 70 Balance 405 / 405 1345 / 1345 Weight 97 kg Intake: IV 515 / 515 515 / 515 NovoLIN R (IV Infusion) 100 0 / 0 UNIT In NS Inj 99 ML @ 3 UNITS/ HR 3 mls/hr IV.CONT TITRATE PRN Rx#:[id number] Vancomycin Inj 1,500 MG In NS 515 / 515 515 / 515 Inj 500 ML @ 250 mls/hr IV.SIG Q12H MARYLOU Rx#:[id number] Oral 500 / 500 900 / 900 Output: Urine 350 / 350 Chest Tube Drainage 260 / 260 70 / 70 Pleural/Mediastinal 260 / 260 70 / 70 Other: # Voids 1 Narrative: GENERAL: This is a well-nourished, well-developed patient, NAD. HEENT: NC, AT. CARDIOVASCULAR: Normal rate and regular rhythm without murmurs, gallops, or rubs. RESPIRATORY: Good respiratory efforts. Breath sounds equal and clear to auscultation bilaterally. ABDOMEN: Soft, NT, ND. EXTREMITIES: No edema. NEURO: No gross deficits. - Urinary Catheter Management Indwelling Temp Sensing Catheter Cath placed during this visit: yes, but has since been removed by the nurse Reason for continuing: Decision to DC catheter Insertion date: 04/07/18 Insertion time: 08:00 Removal date: 04/08/18 Removal time: 06:00 Results - Labs CBC & Chem 7: 04/09/18 05:15 04/09/18 05:15 Laboratory Results - last 24 hr 04/06/18 04/08/18 04/08/18 03:26 09:36 14:04 WBC RBC Hgb Hct MCV MCH MCHC RDW Plt Count MPV Neut % (Auto) Lymph % (Auto) Chase % (Auto) Eos % (Auto) Baso % (Auto) Neut # (Auto) Lymph # (Auto) Chase # (Auto) Eos # (Auto) Baso # (Auto) WBC Differential Differential Comment Sodium Potassium Chloride Carbon Dioxide Anion Gap BUN Creatinine Estimated GFR POC Glucose 117 H 105 Random Glucose Calcium Magnesium MTS Gel Crossmatch See Detail 04/08/18 04/08/18 04/09/18 16:42 23:16 03:48 WBC RBC Hgb Hct MCV MCH MCHC RDW Plt Count MPV Neut % (Auto) Lymph % (Auto) [place] % (Auto) Eos % (Auto) Baso % (Auto) Neut # (Auto) Lymph # (Auto) Chase # (Auto) Eos # (Auto) Baso # (Auto) WBC Differential Differential Comment Sodium Potassium Chloride Carbon Dioxide Anion Gap BUN Creatinine Estimated GFR POC Glucose 131 H 106 97 Random Glucose Calcium Magnesium MTS Gel Crossmatch 04/09/18 04/09/18 05:15 05:15 WBC 9.6 RBC 3.25 L Hgb 10.4 L Hct 30.8 L MCV 94.8 MCH 32.1 MCHC 33.9 RDW 14.0 Plt Count 129 L MPV 8.4 Neut % (Auto) 66.7 Lymph % (Auto) 20.0 Chase % (Auto) 9.7 H Eos % (Auto) 3.1 Baso % (Auto) 0.5 Neut # (Auto) 6.4 Lymph # (Auto) 1.9 Chase # (Auto) 0.9 Eos # (Auto) 0.3 Baso # (Auto) 0.0 WBC Differential . Differential Comment Auto diff final Sodium 139 Potassium 4.4 Chloride 106 Carbon Dioxide 28.3 Anion Gap 5 BUN 16 Creatinine 0.63 Estimated GFR Greater than 89 POC Glucose Random Glucose 94 Calcium 7.6 L Magnesium 2.3 MTS Gel Crossmatch Assessment and Plan - Assessment (1) Coronary artery disease involving [place] coronary artery Code(s): I25.10 - Atherosclerotic heart disease of [place] coronary artery without angina pectoris Status: Acute (2) Acute myocardial infarction Code(s): I21.9 - Acute myocardial infarction, unspecified Status: Acute - Plan 67-year-old female admitted for NSTEMI. Patient underwent heart catheterization which revealed multivessel coronary artery disease. CT surgery was consulted to consider CABG. NSTEMI Status post heart cath which revealed multivessel disease. Preserved EF on echo. CT surgery consult appreciated. S/p CABG 04/08. S/p heparin drip. -continue cardiac regimen including statin and beta-florian. -increase pain control. Pt has underlying fibromyalgia. -telemetry. -management per CTS. Chest tubes to be removed 04/09. Acute respiratory failure Exacerbated by recent surgery. On nasal cannula. Coughing up sputum. -repeat CXR following chest tube removal. -check sputum culture. -continue oxygen and nebs as needed. -encourage ambulation, incentive spirometry. -diuresis. HTN Well controlled. -continue beta-florian. -ACEi on hold. Nicotine abuse -cessation counseling provided. Morbid obesity BMI 34. -recommend diet and weight loss. DVT prophylaxis: Per surgery
--- NOTE | 2018-04-09 10:09 | P.DIET ---
Nutritional Evaluation Screening comments: MDC for diet education s/p CABG x2 on 04/07 received. Patient Navigator to provide education. Consult RD if complexities with diet education arise.
--- NOTE | 2018-04-09 11:44 | P.PNCV ---
- Note Subjective/Hospital Course: Very pleasant 67-year-old female presenting with new onset chest pain described as a pressure sensation. Patient was seen and evaluated emergency department and admitted with the primary diagnosis of acute myocardial infarction (NSTEMI ) . She subsequent underwent a coronary angiogram which reveals multivessel coronary artery disease. I am now being consulted for surgical revascularization therapy. EF 55% At the present time she remains pain-free, hemodynamically stable with no evidence of ongoing ischemia. Review of Systems All other systems reviewed negative except as stated in HPI [facility] - History History Provided By: Patient - Medical History Medical History: Medical History (Last Reviewed 04/02/18 @ 14:11 by Aruna Ritchie RN) Arthritis Fibromyalgia GERD (gastroesophageal reflux disease) Hypertension Non-tuberculous bronchiectasis Seasonal allergies 04/05 pain free, wanted to get second opinion with Dr Cooper prior to surgery on heparin gtt sts data will be documented in computer 04/06 Clinically stable OR in a.m. 04/07 Date of procedure: 04/07/18 Anesthesia: GETA Surgeon: Marek Malhotra MD Operation and Findings: PREPROCEDURE DIAGNOSES 1. Severe Multi Vessel Coronary Artery Disease. 2. Acute Myocardial Infarction 3. Intramyocardial Coronary Vessels POSTPROCEDURE DIAGNOSES Same SURGICAL PROCEDURE 1. Urgent Off-pump Coronary Artery Bypass Grafting x 2 with Left Internal Mammary Artery (HINDS) to Left Anterior Descending (LAD), reverse saphenous vein graft to the posterior Descending branch of the right Coronary artery 2. Left leg Endoscopic Vein [place] 3. Ultrasound Guided Dissection of the Coronary Arteries 4. Intraoperative Vein Mapping. + extubated after surgery crystalloid 2500cc, cell saver 150cc, EBL 300CC 04/08 pt up in chair, on nasal cannula start BB, ASA, plavix, amiodarone pulm toileting OOB, PT xanax prn for anxiety 04/09 chest tube dc without difficulty BP on lower side last night , now improved gentle diuresis OOB, pulm toileting Objective: Vital Signs - 24 hr 04/08/18 12:00 04/08/18 12:35 04/08/18 14:48 Temperature 97.5 F L Pulse Rate 74 75 75 Respiratory Rate 18 Blood Pressure 120/59 L Pulse Oximetry 95 04/08/18 15:06 04/08/18 16:14 04/08/18 17:14 Temperature Pulse Rate 71 70 72 Respiratory Rate Blood Pressure Pulse Oximetry 04/08/18 18:00 04/08/18 19:00 04/08/18 19:57 Temperature 98.0 F Pulse Rate 77 67 67 Respiratory Rate 18 Blood Pressure 90/47 L Pulse Oximetry 92 L 04/08/18 20:00 04/08/18 20:48 04/08/18 21:00 Temperature Pulse Rate 70 69 67 Respiratory Rate 16 Blood Pressure Pulse Oximetry 98 04/08/18 22:00 04/08/18 23:00 04/09/18 00:00 Temperature 98.1 F Pulse Rate 67 75 75 Respiratory Rate 18 Blood Pressure 109/54 L Pulse Oximetry 97 04/09/18 01:00 04/09/18 02:00 04/09/18 03:00 Temperature Pulse Rate 75 73 72 Respiratory Rate Blood Pressure Pulse Oximetry 04/09/18 03:40 04/09/18 04:00 04/09/18 05:00 Temperature 97.9 F Pulse Rate 78 78 74 Respiratory Rate 20 Blood Pressure 97/55 L Pulse Oximetry 96 04/09/18 06:00 04/09/18 07:00 04/09/18 08:00 Temperature 98.3 F Pulse Rate 74 77 80 Respiratory Rate 16 Blood Pressure 105/54 L Pulse Oximetry 95 04/09/18 09:00 04/09/18 09:16 04/09/18 10:00 Temperature Pulse Rate 108 H 90 90 Respiratory Rate 17 Blood Pressure Pulse Oximetry 96 04/09/18 10:48 Temperature 97.9 F Pulse Rate 78 Respiratory Rate 18 Blood Pressure 118/56 L Pulse Oximetry 96 GENERAL: A&O x 3 SKIN: Warm and dry. prevena tto chest , incisions intact to left leg HEAD: Normocephalic. EYES: No scleral icterus. No injection or drainage. NECK: Supple, trachea midline. No JVD or lymphadenopathy. CARDIOVASCULAR: Regular rate and rhythm without murmurs, gallops, or rubs. mild general edema RESPIRATORY: Breath sounds equal bilaterally. No accessory muscle use. diminished in bases, chest tube dc GASTROINTESTINAL: Abdomen soft, non-tender, nondistended. MUSCULOSKELETAL: No cyanosis, or edema. BACK: Nontender without obvious deformity. No CVA tenderness. Labs: Laboratory Results - last 12 hr 04/06/18 04/09/18 04/09/18 03:26 03:48 05:15 WBC 9.6 RBC 3.25 L Hgb 10.4 L Hct 30.8 L MCV 94.8 MCH 32.1 MCHC 33.9 RDW 14.0 Plt Count 129 L MPV 8.4 Neut % (Auto) 66.7 Lymph % (Auto) 20.0 [place] % (Auto) 9.7 H Eos % (Auto) 3.1 Baso % (Auto) 0.5 Neut # (Auto) 6.4 Lymph # (Auto) 1.9 [place] # (Auto) 0.9 Eos # (Auto) 0.3 Baso # (Auto) 0.0 WBC Differential . Differential Comment Auto diff final Sodium Potassium Chloride Carbon Dioxide Anion Gap BUN Creatinine Estimated GFR POC Glucose 97 Random Glucose Calcium Magnesium MTS Gel Crossmatch See Detail 04/09/18 04/09/18 05:15 10:41 WBC RBC Hgb Hct MCV MCH MCHC RDW Plt Count MPV Neut % (Auto) Lymph % (Auto) [place] % (Auto) Eos % (Auto) Baso % (Auto) Neut # (Auto) Lymph # (Auto) [place] # (Auto) Eos # (Auto) Baso # (Auto) WBC Differential Differential Comment Sodium 139 Potassium 4.4 Chloride 106 Carbon Dioxide 28.3 Anion Gap 5 BUN 16 Creatinine 0.63 Estimated GFR Greater than 89 POC Glucose 123 H Random Glucose 94 Calcium 7.6 L Magnesium 2.3 MTS Gel Crossmatch Result Diagrams: 04/09/18 05:15 04/09/18 05:15 - Plan (1) S/P CABG (coronary artery bypass graft) Plan: Neuro: prn xanax for anxiety Resp: pulm toileting nebs ezpap [place]ella chest tube dc / f/u CXR in am wean 02 as tolerated CV: BB ASA statin , amiodarone (bid x 14 days after discharge) diuresis GI: heart healthy diet gi motility meds + prophy : protonix eval for dc on Thursday (2) Coronary artery disease involving [place] coronary artery Plan: ASA, BB for surgery on Thu
[2018-04-10] MEDS: Insulin NovoLOG Aspart Correctional Sugar Inj SQ SCH ×4 (07:57→22:19)
[2018-04-10] MEDS: Amiodarone 200 MG Tablet PO SCH ×2 (08:24→22:19)
[2018-04-10] MEDS: Senna/Docusate Sodium 8.6/50 MG Tablet PO SCH ×2 (08:24→22:20)
[2018-04-10] MEDS: Metoprolol Tartrate 25 MG Tablet PO SCH ×2 (08:25→22:17)
[2018-04-10] MEDS: Famotidine 20 MG Tablet PO SCH ×2 (08:25→22:18)
[2018-04-10] MEDS: Multivitamin/Minerals Therapeutic Tablet PO SCH (08:25)
[2018-04-10] MEDS: Montelukast 10 MG Tablet PO SCH (08:26)
[2018-04-10] MEDS: Polyethylene Glycol 3350 17 GM Packet PO SCH (08:26)
[2018-04-10] MEDS: Docusate Sodium 100 MG Capsule PO SCH ×2 (08:48→22:20)
[2018-04-10 09:45] LABS: Baso # (Auto) 0.1 th/mm3 (0.0-0.2); Baso % (Auto) 0.6 % (0.0-2.0); Eos # (Auto) 0.3 th/mm3 (0.0-0.4); Eos % (Auto) 3.1 % (0.0-4.0); Hematocrit 36.8 % (35.0-46.0); Lymph # (Auto) 2.7 th/mm3 (1.0-4.8); Lymph % (Auto) 25.1 % (9.0-44.0); Mean Corpuscular HGB Conc 32.7 % (32.0-36.0); Mean Corpuscular Hemoglobin 31.8 pg (27.0-34.0); Mean Corpuscular Volume 97.2 fL (80.0-100.0); Mean Platelet Volume 8.5 fL (7.0-11.0); Mono # (Auto) 1.1 th/mm3 (0.0-0.9); Mono % (Auto) 9.8 % (0.0-8.0); Neut # (Auto) 6.7 th/mm3 (1.8-7.7); Neut % (Auto) 61.4 % (16.0-70.0); Platelet Count 160 th/mm3 (150-450); Red Blood Count 3.78 mil/mm3 (4.00-5.30); Red Cell Distribution Width 13.7 % (11.6-17.2); White Blood Count 10.9 th/mm3 (4.0-11.0)
[2018-04-10 10:09] LABS: Anion Gap 8 meq/L (5-15); Blood Urea Nitrogen 14 mg/dL (7-18); Calcium 8.2 mg/dL (8.5-10.1); Carbon Dioxide 28.3 meq/L (21.0-32.0); Chloride 101 meq/L (98-107); Glomerular Filtration Rate Greater Than 89 mL/min (>89); Glucose,Random 85 mg/dL (74-106); Potassium 4.3 meq/L (3.5-5.1); Sodium 137 meq/L (136-145)
--- NOTE | 2018-04-10 10:52 | P.PNCV ---
- Note CVT: Post Op Day #: 3 Subjective/Hospital Course: Very pleasant 67-year-old female presenting with new onset chest pain described as a pressure sensation. Patient was seen and evaluated emergency department and admitted with the primary diagnosis of acute myocardial infarction (NSTEMI ) . She subsequent underwent a coronary angiogram which reveals multivessel coronary artery disease. I am now being consulted for surgical revascularization therapy. EF 55% At the present time she remains pain-free, hemodynamically stable with no evidence of ongoing ischemia. Review of Systems All other systems reviewed negative except as stated in HPI [facility] - History History Provided By: Patient - Medical History Medical History: Medical History (Last Reviewed 04/02/18 @ 14:11 by Aruan Ritchie RN) Arthritis Fibromyalgia GERD (gastroesophageal reflux disease) Hypertension Non-tuberculous bronchiectasis Seasonal allergies 04/05 pain free, wanted to get second opinion with Dr Cooper prior to surgery on heparin gtt sts data will be documented in computer 04/06 Clinically stable OR in a.m. 04/07 Date of procedure: 04/07/18 Anesthesia: GETA Surgeon: Marek Malhotra MD Operation and Findings: PREPROCEDURE DIAGNOSES 1. Severe Multi Vessel Coronary Artery Disease. 2. Acute Myocardial Infarction 3. Intramyocardial Coronary Vessels POSTPROCEDURE DIAGNOSES Same SURGICAL PROCEDURE 1. Urgent Off-pump Coronary Artery Bypass Grafting x 2 with Left Internal Mammary Artery (HINDS) to Left Anterior Descending (LAD), reverse saphenous vein graft to the posterior Descending branch of the right Coronary artery 2. Left leg Endoscopic Vein [place] 3. Ultrasound Guided Dissection of the Coronary Arteries 4. Intraoperative Vein Mapping. + extubated after surgery crystalloid 2500cc, cell saver 150cc, EBL 300CC 04/08 pt up in chair, on nasal cannula start BB, ASA, plavix, amiodarone pulm toileting OOB, PT xanax prn for anxiety 04/09 chest tube dc without difficulty BP on lower side last night , now improved gentle diuresis OOB, pulm toileting 04/10 c/o chest pain, vision changes, dyspnea, incisional pain, constipation Objective: Vital Signs - 24 hr 04/09/18 11:00 04/09/18 12:00 04/09/18 13:00 Temperature Pulse Rate 74 76 76 Respiratory Rate Blood Pressure Pulse Oximetry 04/09/18 13:38 04/09/18 14:00 04/09/18 15:00 Temperature 98.5 F Pulse Rate 71 76 92 H Respiratory Rate 17 18 Blood Pressure 120/60 Pulse Oximetry 99 04/09/18 16:00 04/09/18 17:00 04/09/18 18:00 Temperature Pulse Rate 76 76 86 Respiratory Rate Blood Pressure Pulse Oximetry 04/09/18 19:00 04/09/18 19:47 04/09/18 20:00 Temperature 98.9 F Pulse Rate 80 80 82 Respiratory Rate 18 Blood Pressure 99/51 L Pulse Oximetry 99 04/09/18 20:29 04/09/18 21:00 04/09/18 22:00 Temperature Pulse Rate 77 75 74 Respiratory Rate 18 Blood Pressure Pulse Oximetry 93 L 04/09/18 23:00 04/09/18 23:28 04/09/18 23:55 Temperature 98.6 F Pulse Rate 74 69 Respiratory Rate 18 20 Blood Pressure 99/51 L Pulse Oximetry 98 04/10/18 00:00 04/10/18 01:00 04/10/18 02:00 Temperature Pulse Rate 66 67 66 Respiratory Rate Blood Pressure Pulse Oximetry 04/10/18 03:00 04/10/18 03:42 04/10/18 04:00 Temperature 98.6 F Pulse Rate 69 69 Respiratory Rate 20 18 Blood Pressure 106/59 L Pulse Oximetry 100 04/10/18 05:00 04/10/18 07:00 04/10/18 07:40 Temperature 97.5 F L Pulse Rate 70 75 65 Respiratory Rate 20 15 Blood Pressure 141/62 H Pulse Oximetry 97 95 04/10/18 08:00 04/10/18 09:00 04/10/18 10:00 Temperature Pulse Rate 65 67 66 Respiratory Rate Blood Pressure Pulse Oximetry 95 Labs: Laboratory Results - last 12 hr 04/10/18 04/10/18 04/10/18 07:48 07:53 07:53 WBC 10.9 RBC 3.78 L Hgb 12.0 Hct 36.8 MCV 97.2 MCH 31.8 MCHC 32.7 RDW 13.7 Plt Count 160 MPV 8.5 Neut % (Auto) 61.4 Lymph % (Auto) 25.1 [place] % (Auto) 9.8 H Eos % (Auto) 3.1 Baso % (Auto) 0.6 Neut # (Auto) 6.7 Lymph # (Auto) 2.7 [place] # (Auto) 1.1 H Eos # (Auto) 0.3 Baso # (Auto) 0.1 WBC Differential . Differential Comment Auto diff final Sodium 137 Potassium 4.3 Chloride 101 Carbon Dioxide 28.3 Anion Gap 8 BUN 14 Creatinine 0.63 Estimated GFR Greater than 89 POC Glucose 101 Random Glucose 85 Calcium 8.2 L Result Diagrams: 04/10/18 07:53 04/10/18 07:53 Imaging: Venous Doppler Study 04/03/18 00:00 CONCLUSION: 1. The study is negative for bilateral lower extremity deep venous thrombosis. Carotid Doppler Study 04/03/18 13:24 CONCLUSION: 1. Right Internal Carotid Artery: No significant stenosis or atherosclerotic plaque is visualized. 2. Left Internal Carotid Artery: No significant stenosis or atherosclerotic plaque is visualized. Lower Extremity Ultrasound 04/03/18 13:24 CONCLUSION: 1. Venous mapping with saphenous vein measurements described above. 2. No saphenous vein thrombosis noted. Chest X-Ray 04/08/18 05:00 CONCLUSION: 1. Patient has been extubated with NGT removed. Remaining tubes and lines are stable. 2. No significant pneumothorax with improved aeration in the left upper lung zone. Cardiovascular: RRR Telemetry: NSR Pulmonary: Few crackles bilaterally GI/: NABS Incision: dry and intact - Plan (1) S/P CABG (coronary artery bypass graft) Plan: Neuro: prn xanax for anxiety Resp: pulm toileting nebs ezpap [place] chest tube dc / f/u CXR in am wean 02 as tolerated CV: BB ASA statin , amiodarone (bid x 14 days after discharge) diuresis GI: heart healthy diet gi motility meds + prophy : protonix eval for dc on Thursday (2) Coronary artery disease involving [place] coronary artery Plan: ASA, BB for surgery on Thu Stim BM Diurese 12 lead ECG done for chest pain and there are no significant changes Encourage ambulation CXR Possible D/C in AM if symptoms resolve and she has a BM
--- NOTE | 2018-04-10 12:06 | XR ---
EXAM DATE: 04/10/2018 11:39 AM EST AGE/SEX: 67 years / Female INDICATIONS: Cardiac disease. CLINICAL DATA: This is the patient's subsequent encounter. Patient reports that signs and symptoms h ave been present for 4 - 6 days and indicates a pain score of 0/10. MEDICAL/SURGICAL HISTORY: . Gastroesophageal reflux disease. Hypertension. Arthritis. Fibromyal ronan. . CABG. [place] [facility] [place]. . FINDINGS: Lungs are hypoaerated with diffuse interstitial prominence. Patchy airspace disease remains evident i n the left base. Left chest tube and mediastinal drain have been removed. There is no evidence of pne umothorax. Postsurgical changes are noted following CABG. Right jugular central line remains in place CONCLUSION: Hypoaerated lungs with diffuse interstitial prominence and persistent patchy airspace disease in the left base. No evidence of pneumothorax. Status post removal of mediastinal drain and left chest tube. Electronically signed by: Juma Givens MD Board Certified Radiologist 04/10/2018 12:05 PM EST
--- NOTE | 2018-04-10 12:20 | P.PN ---
Subjective Interval history: Follow-up multivessel disease CAD status post CABG April 10, 2018-patient seen and examined, complains of not feeling well today. Reports some shortness of breath. Son by the bedside. Currently patient on IV Lasix per CTS Physical Exam Vital signs: Vital Signs 04/09/18 13:00 04/09/18 13:38 04/09/18 14:00 Temperature Pulse Rate 76 71 76 Respiratory Rate 17 Blood Pressure Pulse Oximetry 04/09/18 15:00 04/09/18 16:00 04/09/18 17:00 Temperature 98.5 F Pulse Rate 92 H 76 76 Respiratory Rate 18 Blood Pressure 120/60 Pulse Oximetry 99 04/09/18 18:00 04/09/18 19:00 04/09/18 19:47 Temperature 98.9 F Pulse Rate 86 80 80 Respiratory Rate 18 Blood Pressure 99/51 L Pulse Oximetry 99 04/09/18 20:00 04/09/18 20:29 04/09/18 21:00 Temperature Pulse Rate 82 77 75 Respiratory Rate 18 Blood Pressure Pulse Oximetry 93 L 04/09/18 22:00 04/09/18 23:00 04/09/18 23:28 Temperature Pulse Rate 74 74 Respiratory Rate 18 Blood Pressure Pulse Oximetry 04/09/18 23:55 04/10/18 00:00 04/10/18 01:00 Temperature 98.6 F Pulse Rate 69 66 67 Respiratory Rate 20 Blood Pressure 99/51 L Pulse Oximetry 98 04/10/18 02:00 04/10/18 03:00 04/10/18 03:42 Temperature 98.6 F Pulse Rate 66 69 Respiratory Rate 20 18 Blood Pressure 106/59 L Pulse Oximetry 100 04/10/18 04:00 04/10/18 05:00 04/10/18 07:00 Temperature 97.5 F L Pulse Rate 69 70 75 Respiratory Rate 20 Blood Pressure 141/62 H Pulse Oximetry 97 04/10/18 07:40 04/10/18 08:00 04/10/18 09:00 Temperature Pulse Rate 65 65 67 Respiratory Rate 15 Blood Pressure Pulse Oximetry 95 95 04/10/18 10:00 04/10/18 11:00 Temperature 97.7 F Pulse Rate 66 68 Respiratory Rate 22 Blood Pressure 122/58 L Pulse Oximetry 99 Intake & Output 04/09/18 04/10/18 04/10/18 18:59 06:59 18:59 Intake Total 1200 / 1200 740 / 740 Output Total 2099 725 / 725 Balance -900 / -900 Weight 96.3 kg Intake: Oral 1200 / 1200 740 / 740 Output: Urine 2099 725 / 725 Other: Date of Last Bowel Movement 04/06/18 Narrative: GENERAL: NAD SKIN: Warm and dry. HEAD: Normocephalic. EYES: No scleral icterus. No injection or drainage. NECK: Supple, trachea midline. No JVD or lymphadenopathy. CARDIOVASCULAR: Regular rate and rhythm without murmurs, gallops, or rubs. RESPIRATORY: Breath sounds equal bilaterally. No accessory muscle use. GASTROINTESTINAL: Abdomen soft, non-tender, nondistended. MUSCULOSKELETAL: No cyanosis, or edema. BACK: Nontender without obvious deformity. No CVA tenderness. - Urinary Catheter Management Indwelling Temp Sensing Catheter Cath placed during this visit: yes, but has since been removed by the nurse Reason for continuing: Decision to DC catheter Insertion date: 04/07/18 Insertion time: 08:00 Removal date: 04/08/18 Removal time: 06:00 Results - Labs CBC & Chem 7: 04/10/18 07:53 04/10/18 07:53 Laboratory Results - last 24 hr 04/09/18 04/09/18 04/09/18 14:25 18:01 21:42 WBC RBC Hgb Hct MCV MCH MCHC RDW Plt Count MPV Neut % (Auto) Lymph % (Auto) [place] % (Auto) Eos % (Auto) Baso % (Auto) Neut # (Auto) Lymph # (Auto) [place] # (Auto) Eos # (Auto) Baso # (Auto) WBC Differential Differential Comment Sodium Potassium Chloride Carbon Dioxide Anion Gap BUN Creatinine Estimated GFR POC Glucose 121 H 121 H 124 H Random Glucose Calcium 04/10/18 04/10/18 04/10/18 07:48 07:53 07:53 WBC 10.9 RBC 3.78 L Hgb 12.0 Hct 36.8 MCV 97.2 MCH 31.8 MCHC 32.7 RDW 13.7 Plt Count 160 MPV 8.5 Neut % (Auto) 61.4 Lymph % (Auto) 25.1 [place] % (Auto) 9.8 H Eos % (Auto) 3.1 Baso % (Auto) 0.6 Neut # (Auto) 6.7 Lymph # (Auto) 2.7 [place] # (Auto) 1.1 H Eos # (Auto) 0.3 Baso # (Auto) 0.1 WBC Differential . Differential Comment Auto diff final Sodium 137 Potassium 4.3 Chloride 101 Carbon Dioxide 28.3 Anion Gap 8 BUN 14 Creatinine 0.63 Estimated GFR Greater than 89 POC Glucose 101 Random Glucose 85 Calcium 8.2 L 04/10/18 10:49 WBC RBC Hgb Hct MCV MCH MCHC RDW Plt Count MPV Neut % (Auto) Lymph % (Auto) [place] % (Auto) Eos % (Auto) Baso % (Auto) Neut # (Auto) Lymph # (Auto) [place] # (Auto) Eos # (Auto) Baso # (Auto) WBC Differential Differential Comment Sodium Potassium Chloride Carbon Dioxide Anion Gap BUN Creatinine Estimated GFR POC Glucose 121 H Random Glucose Calcium Microbiology 04/09/18 19:35 Sputum - Expectorated Sputum Gram Stain - Final - Imaging Impressions Chest X-Ray 04/10/18 00:00 CONCLUSION: Hypoaerated lungs with diffuse interstitial prominence and persistent patchy airspace disease in the left base. No evidence of pneumothorax. Status post removal of mediastinal drain and left chest tube. - Procedures s/p CABG April 08, 2018 Assessment and Plan - Assessment (1) Coronary artery disease involving [place] coronary artery Code(s): I25.10 - Atherosclerotic heart disease of [place] coronary artery without angina pectoris Status: Acute (2) Acute myocardial infarction Code(s): I21.9 - Acute myocardial infarction, unspecified Status: Acute - Plan 67-year-old female with Multivessel coronary artery disease Status post CABG April 08, 2018 Management per cardiothoracic surgery Currently on Plavix, aspirin, amiodarone, beta-florian, statin and Lipitor Lasix 40 mg IV twice daily started today Acute respiratory failure -continue oxygen and nebs as needed. -encourage ambulation, incentive spirometry. -Patient was switched today 04/10/18 to Lasix 40 mg IV twice daily by CTS Hypertension Currently normotensive on Lopressor 12.5 mg p.o. twice daily LEA inhibitor on hold Nicotine abuse -cessation counseling provided. Morbid obesity BMI 34. -recommend diet and weight loss. PT to treat and eval
[2018-04-10] MEDS: Bisacodyl 10 MG Supp RECTAL PRN (15:00)
--- NOTE | 2018-04-10 17:49 | ECG ---
Date Performed: 04/10/2018 Time Performed: 08:29:12 PTAGE: 67 years EKG: Sinus rhythm Inferior infarct - age undetermined Possible anterior infarct - age undetermined Low QRS voltages in precordial leads Abnormal ECG NO PREVIOUS TRACING DOCTOR: Jay Pierce Interpretating Date/Time 04/10/2018 17:48:44
[2018-04-11 08:28] VITALS: O2SAT 97
--- NOTE | 2018-04-11 09:07 | P.PN ---
Subjective Interval history: Follow-up multivessel disease CAD status post CABG April 10, 2018-patient seen and examined, complains of not feeling well today. Reports some shortness of breath. Son by the bedside. Currently patient on IV Lasix per CTS April 11, 2018-patient seen and examined, currently afebrile and she was up and ambulating with PT. Looking forward to going home. Had a bowel movement yesterday. Physical Exam Vital signs: Vital Signs 04/10/18 10:00 04/10/18 11:00 04/10/18 12:00 Temperature 97.7 F Pulse Rate 66 68 72 Respiratory Rate 22 Blood Pressure 122/58 L Pulse Oximetry 99 04/10/18 13:00 04/10/18 14:00 04/10/18 15:00 Temperature 97.9 F Pulse Rate 74 71 80 Respiratory Rate 20 Blood Pressure 107/59 L Pulse Oximetry 96 04/10/18 15:43 04/10/18 16:00 04/10/18 17:00 Temperature Pulse Rate 74 80 Respiratory Rate 20 Blood Pressure Pulse Oximetry 04/10/18 18:00 04/10/18 19:00 04/10/18 19:40 Temperature 97.9 F Pulse Rate 72 74 Respiratory Rate 16 Blood Pressure 106/56 L Pulse Oximetry 97 94 L 04/10/18 20:00 04/10/18 21:00 04/10/18 22:00 Temperature Pulse Rate 74 85 86 Respiratory Rate Blood Pressure Pulse Oximetry 97 04/10/18 22:16 04/10/18 23:00 04/11/18 00:00 Temperature 97.9 F Pulse Rate 69 62 Respiratory Rate 16 16 Blood Pressure 120/59 L Pulse Oximetry 95 04/11/18 01:00 04/11/18 01:48 04/11/18 02:00 Temperature Pulse Rate 62 66 Respiratory Rate 16 Blood Pressure Pulse Oximetry 04/11/18 02:15 04/11/18 03:00 04/11/18 04:00 Temperature 98.1 F Pulse Rate 68 71 Respiratory Rate 16 16 16 Blood Pressure 119/58 L Pulse Oximetry 96 04/11/18 05:00 04/11/18 05:22 04/11/18 06:00 Temperature Pulse Rate 76 72 Respiratory Rate 16 Blood Pressure Pulse Oximetry 04/11/18 06:38 04/11/18 07:00 04/11/18 07:49 Temperature 98.5 F Pulse Rate 73 65 Respiratory Rate 16 20 15 Blood Pressure 105/57 L Pulse Oximetry 97 96 04/11/18 08:00 Temperature Pulse Rate 71 Respiratory Rate Blood Pressure Pulse Oximetry 97 Intake & Output 04/10/18 04/11/18 04/11/18 18:59 06:59 18:59 Intake Total 960 / 960 680 / 680 Output Total 1100 / 1100 550 / 550 Balance -140 / -140 130 / 130 Weight 96.3 kg 93.4 kg Intake: Oral 960 / 960 680 / 680 Output: Urine 1100 / 1100 550 / 550 Other: # Voids 2 0 Date of Last Bowel Movement 04/10/18 04/10/18 04/10/18 # Bowel Movements 1 Weight On Admission 96.3 kg Narrative: GENERAL: NAD and ambulating in the hallway SKIN: Warm and dry. HEAD: Normocephalic. EYES: No scleral icterus. No injection or drainage. NECK: Supple, trachea midline. No JVD or lymphadenopathy. CARDIOVASCULAR: Regular rate and rhythm without murmurs, gallops, or rubs. RESPIRATORY: Breath sounds equal bilaterally. No accessory muscle use. GASTROINTESTINAL: Abdomen soft, non-tender, nondistended. MUSCULOSKELETAL: No cyanosis, or edema. BACK: Nontender without obvious deformity. No CVA tenderness. - Urinary Catheter Management Indwelling Temp Sensing Catheter Cath placed during this visit: yes, but has since been removed by the nurse Reason for continuing: Decision to DC catheter Insertion date: 04/07/18 Insertion time: 08:00 Removal date: 04/08/18 Removal time: 06:00 Results - Labs CBC & Chem 7: 04/10/18 07:53 04/10/18 07:53 Laboratory Results - last 24 hr 04/10/18 04/10/18 04/10/18 07:53 07:53 10:49 WBC 10.9 RBC 3.78 L Hgb 12.0 Hct 36.8 MCV 97.2 MCH 31.8 MCHC 32.7 RDW 13.7 Plt Count 160 MPV 8.5 Neut % (Auto) 61.4 Lymph % (Auto) 25.1 [place] % (Auto) 9.8 H Eos % (Auto) 3.1 Baso % (Auto) 0.6 Neut # (Auto) 6.7 Lymph # (Auto) 2.7 [place] # (Auto) 1.1 H Eos # (Auto) 0.3 Baso # (Auto) 0.1 WBC Differential . Differential Comment Auto diff final Sodium 137 Potassium 4.3 Chloride 101 Carbon Dioxide 28.3 Anion Gap 8 BUN 14 Creatinine 0.63 Estimated GFR Greater than 89 POC Glucose 121 H Random Glucose 85 Calcium 8.2 L 04/10/18 04/10/18 04/11/18 16:29 22:14 07:01 WBC RBC Hgb Hct MCV MCH MCHC RDW Plt Count MPV Neut % (Auto) Lymph % (Auto) [place] % (Auto) Eos % (Auto) Baso % (Auto) Neut # (Auto) Lymph # (Auto) [place] # (Auto) Eos # (Auto) Baso # (Auto) WBC Differential Differential Comment Sodium Potassium Chloride Carbon Dioxide Anion Gap BUN Creatinine Estimated GFR POC Glucose 105 111 H 121 H Random Glucose Calcium Microbiology 04/09/18 19:35 Sputum - Expectorated Sputum Gram Stain - Final 04/09/18 19:35 Sputum - Expectorated Sputum Sputum Culture - Preliminary Heavy growth normal respiratory jose g at 24 hours - Imaging Impressions Chest X-Ray 04/10/18 00:00 CONCLUSION: Hypoaerated lungs with diffuse interstitial prominence and persistent patchy airspace disease in the left base. No evidence of pneumothorax. Status post removal of mediastinal drain and left chest tube. - Procedures s/p CABG April 08, 2018 Assessment and Plan - Assessment (1) Coronary artery disease involving [place] coronary artery Code(s): I25.10 - Atherosclerotic heart disease of [place] coronary artery without angina pectoris Status: Acute (2) Acute myocardial infarction Code(s): I21.9 - Acute myocardial infarction, unspecified Status: Acute - Plan 67-year-old female with Multivessel coronary artery disease Status post CABG April 08, 2018 Management per cardiothoracic surgery Currently on Plavix, aspirin, amiodarone, beta-florian, statin and Lipitor Lasix 40 mg IV twice daily ; will switch to p.o. Lasix Acute respiratory failure-resolved -continue oxygen and nebs as needed. -encourage ambulation, incentive spirometry. -Patient was switched on 04/10/18 to Lasix 40 mg IV twice daily by CTS, will switch to p.o. Lasix prior to discharge Hypertension Currently normotensive on Lopressor 12.5 mg p.o. twice daily LEA inhibitor on hold Nicotine abuse -cessation counseling provided. Morbid obesity BMI 34. -recommend diet and weight loss. PT to treat and eval E-FORCSE Prescription Drug Monitoring Database has been queried and verified prior to prescribing the controlled substance. Acute pain exception. This patient has normal, predicted, physiological, and time limited response to an adverse mechanical stimulus associated with surgery, trauma, or acute illness as described in my notes. There is a lack of alternative treatment options other than to include the prescribed narcotic treatment for this condition. (1) Coronary artery disease involving [place] coronary artery Qualifiers: [place] vs. transplanted heart: [place] heart Associated angina: with unstable angina Qualified Code(s): I25.110 - Atherosclerotic heart disease of [place] coronary artery with unstable angina pectoris (2) Acute myocardial infarction Qualifiers: Myocardial infarction type: non-ST elevation myocardial infarction Qualified Code(s): I21.4 - Non-ST elevation (NSTEMI) myocardial infarction
[2018-04-11] MEDS: Metoprolol Tartrate 25 MG Tablet PO SCH (09:21)
[2018-04-11] MEDS: Famotidine 20 MG Tablet PO SCH (09:22)
[2018-04-11] MEDS: Senna/Docusate Sodium 8.6/50 MG Tablet PO SCH (09:22)
[2018-04-11] MEDS: Multivitamin/Minerals Therapeutic Tablet PO SCH (09:22)
[2018-04-11] MEDS: Montelukast 10 MG Tablet PO SCH (09:22)
[2018-04-11] MEDS: Amiodarone 200 MG Tablet PO SCH (09:22)
[2018-04-11] MEDS: Insulin NovoLOG Aspart Correctional Sugar Inj SQ SCH ×2 (09:23→11:15)
[2018-04-11] MEDS: Docusate Sodium 100 MG Capsule PO SCH (09:23)
[2018-04-11] MEDS: Polyethylene Glycol 3350 17 GM Packet PO SCH (09:23)
--- NOTE | 2018-04-11 11:11 | P.PNCV ---
- Note CVT: Post Op Day #: 4 Subjective/Hospital Course: Very pleasant 67-year-old female presenting with new onset chest pain described as a pressure sensation. Patient was seen and evaluated emergency department and admitted with the primary diagnosis of acute myocardial infarction (NSTEMI ) . She subsequent underwent a coronary angiogram which reveals multivessel coronary artery disease. I am now being consulted for surgical revascularization therapy. EF 55% At the present time she remains pain-free, hemodynamically stable with no evidence of ongoing ischemia. Review of Systems All other systems reviewed negative except as stated in HPI PMFSH - History History Provided By: Patient - Medical History Medical History: Medical History (Last Reviewed 04/02/18 @ 14:11 by Aruna Ritchie RN) Arthritis Fibromyalgia GERD (gastroesophageal reflux disease) Hypertension Non-tuberculous bronchiectasis Seasonal allergies 04/05 pain free, wanted to get second opinion with Dr Cooper prior to surgery on heparin gtt sts data will be documented in computer 04/06 Clinically stable OR in a.m. 04/07 Date of procedure: 04/07/18 Anesthesia: GETA Surgeon: Marek Malhotra MD Operation and Findings: PREPROCEDURE DIAGNOSES 1. Severe Multi Vessel Coronary Artery Disease. 2. Acute Myocardial Infarction 3. Intramyocardial Coronary Vessels POSTPROCEDURE DIAGNOSES Same SURGICAL PROCEDURE 1. Urgent Off-pump Coronary Artery Bypass Grafting x 2 with Left Internal Mammary Artery (HINDS) to Left Anterior Descending (LAD), reverse saphenous vein graft to the posterior Descending branch of the right Coronary artery 2. Left leg Endoscopic Vein [place] 3. Ultrasound Guided Dissection of the Coronary Arteries 4. Intraoperative Vein Mapping. + extubated after surgery crystalloid 2500cc, cell saver 150cc, EBL 300CC 04/08 pt up in chair, on nasal cannula start BB, ASA, plavix, amiodarone pulm toileting OOB, PT xanax prn for anxiety 04/09 chest tube dc without difficulty BP on lower side last night , now improved gentle diuresis OOB, pulm toileting 04/10 c/o chest pain, vision changes, dyspnea, incisional pain, constipation 04/11/18 No complaints today, requests discharge +BM Objective: Vital Signs - 24 hr 04/10/18 12:00 04/10/18 13:00 04/10/18 14:00 Temperature Pulse Rate 72 74 71 Respiratory Rate Blood Pressure Pulse Oximetry 04/10/18 15:00 04/10/18 15:43 04/10/18 16:00 Temperature 97.9 F Pulse Rate 80 74 Respiratory Rate 20 20 Blood Pressure 107/59 L Pulse Oximetry 96 04/10/18 17:00 04/10/18 18:00 04/10/18 19:00 Temperature 97.9 F Pulse Rate 80 72 74 Respiratory Rate 16 Blood Pressure 106/56 L Pulse Oximetry 97 04/10/18 19:40 04/10/18 20:00 04/10/18 21:00 Temperature Pulse Rate 74 85 Respiratory Rate Blood Pressure Pulse Oximetry 94 L 97 04/10/18 22:00 04/10/18 22:16 04/10/18 23:00 Temperature 97.9 F Pulse Rate 86 69 Respiratory Rate 16 16 Blood Pressure 120/59 L Pulse Oximetry 95 04/11/18 00:00 04/11/18 01:00 04/11/18 01:48 Temperature Pulse Rate 62 62 Respiratory Rate 16 Blood Pressure Pulse Oximetry 04/11/18 02:00 04/11/18 02:15 04/11/18 03:00 Temperature 98.1 F Pulse Rate 66 68 Respiratory Rate 16 16 Blood Pressure 119/58 L Pulse Oximetry 96 04/11/18 04:00 04/11/18 05:00 04/11/18 05:22 Temperature Pulse Rate 71 76 Respiratory Rate 16 16 Blood Pressure Pulse Oximetry 04/11/18 06:00 04/11/18 06:38 04/11/18 07:00 Temperature 98.5 F Pulse Rate 72 73 Respiratory Rate 16 20 Blood Pressure 105/57 L Pulse Oximetry 97 04/11/18 07:49 04/11/18 08:00 04/11/18 09:00 Temperature Pulse Rate 65 71 72 Respiratory Rate 15 Blood Pressure Pulse Oximetry 96 97 04/11/18 10:00 Temperature Pulse Rate 86 Respiratory Rate Blood Pressure Pulse Oximetry Labs: Laboratory Results - last 12 hr 04/11/18 07:01 POC Glucose 121 H Result Diagrams: 04/10/18 07:53 04/10/18 07:53 Cardiovascular: RRR Pulmonary: CTA GI/: NABS Incision: dry and intact - Plan (1) S/P CABG (coronary artery bypass graft) Plan: Neuro: prn xanax for anxiety Resp: pulm toileting nebs ezpap acapella chest tube dc / f/u CXR in am wean 02 as tolerated CV: BB ASA statin , amiodarone (bid x 14 days after discharge) diuresis GI: heart healthy diet gi motility meds + prophy : protonix eval for dc on Thursday (2) Coronary artery disease involving [place] coronary artery Plan: ASA, BB for surgery on Thu (3) Acute myocardial infarction Home today per Dr. Valenzuela. (2) Coronary artery disease involving [place] coronary artery Qualifiers: [place] vs. transplanted heart: [place] heart Associated angina: with unstable angina Qualified Code(s): I25.110 - Atherosclerotic heart disease of [place] coronary artery with unstable angina pectoris (3) Acute myocardial infarction Qualifiers: Myocardial infarction type: non-ST elevation myocardial infarction Qualified Code(s): I21.4 - Non-ST elevation (NSTEMI) myocardial infarction
--- NOTE | 2018-04-11 11:40 | P.DS ---
Date of admission: 04/02/18 15:25 Primary care physician: Virgie Kiran Brief History from admission: 67yo f presents with acute onset of severe stabbing midsternal chest pain that awoke her from a nap after she had eaten some spagetti. It was severe and radiated to her back and left neck and down her left arm with left arm numbness. She was diaphoretic, and nauseated, and she took a lortab, then a zantac thinking it was gerd, and then xanax all without relief. Then she took a hot shower felt better but the pain persisted for almost 2 hours, when she presented to the ER at [place] and found to have a toponin of 6.[address] elevation on her ekgs. Patient was started on a heparin gtt and case discussed with her pointer machine operator, we are asked for admission to cardiac unit. Patient states she has had severe stress due to her sisters critical illness recently, but she denies [place], palpitations, le edema, orthopnea or productive cough of late. 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 PMHx : costochondritis, htn, dyslipidemia, anxiety, nonTB lung infection, gerd PSXHX: denies sx SOC HX: smokes 1/2 ppd, denies etoh, FAM HX: moms siblings all of CAD, father of bladder/prostate ca DS: Diagnosis - Discharge Diagnosis (1) Coronary artery disease involving [place] coronary artery Status: Acute (2) Acute myocardial infarction Status: Acute DS: Medications - Discharge Medications Prescriptions: albuterol sulfate [Ventolin HFA] 1 puff INHALATION Q4-6H PRN #1 g PRN Reason: Shortness Of Breath amiodarone 200 mg PO Q12HR #20 tab aspirin 81 mg PO DAILY #30 tab atorvastatin 40 mg PO HS #30 tab clopidogrel [Plavix] 75 mg PO DAILY #30 tab ipratropium bromide [Atrovent HFA] 1 puff INHALATION QID #1 g metoprolol tartrate 12.5 mg PO BID #60 tab DS: Summary Hospital Course: Patient admitted secondary to atypical chest pain underwent left heart catheterization by cardiology and was found to have multivessel coronary artery disease for which cardiothoracic surgery was consulted. Patient underwent CABG on April 08, 2018. Was treated medically with beta-florian, amiodarone, starting, Plavix. She also responded well to diuretic secondary to acute respiratory failure due to pulmonary edema. PT was consulted. DVT and GI prophylaxis were provided. Prior to discharge, patient's conditions improved and vitals remained stable. She was continued treatment for other chronic medical conditions. - Time Spent with Patient Total time spent providing and/or coordinating discharge services: Greater than 30 minutes - Quality: VTE Deep Vein Thrombosis/Pulmonary Embolism Present on Admission: No Exam Vital signs: Vital Signs 04/10/18 12:00 04/10/18 13:00 04/10/18 14:00 Temperature Pulse Rate 72 74 71 Respiratory Rate Blood Pressure Pulse Oximetry 04/10/18 15:00 04/10/18 15:43 04/10/18 16:00 Temperature 97.9 F Pulse Rate 80 74 Respiratory Rate 20 20 Blood Pressure 107/59 L Pulse Oximetry 96 04/10/18 17:00 04/10/18 18:00 04/10/18 19:00 Temperature 97.9 F Pulse Rate 80 72 74 Respiratory Rate 16 Blood Pressure 106/56 L Pulse Oximetry 97 04/10/18 19:40 04/10/18 20:00 04/10/18 21:00 Temperature Pulse Rate 74 85 Respiratory Rate Blood Pressure Pulse Oximetry 94 L 97 04/10/18 22:00 04/10/18 22:16 04/10/18 23:00 Temperature 97.9 F Pulse Rate 86 69 Respiratory Rate 16 16 Blood Pressure 120/59 L Pulse Oximetry 95 04/11/18 00:00 04/11/18 01:00 04/11/18 01:48 Temperature Pulse Rate 62 62 Respiratory Rate 16 Blood Pressure Pulse Oximetry 04/11/18 02:00 04/11/18 02:15 04/11/18 03:00 Temperature 98.1 F Pulse Rate 66 68 Respiratory Rate 16 16 Blood Pressure 119/58 L Pulse Oximetry 96 04/11/18 04:00 04/11/18 05:00 04/11/18 05:22 Temperature Pulse Rate 71 76 Respiratory Rate 16 16 Blood Pressure Pulse Oximetry 04/11/18 06:00 04/11/18 06:38 04/11/18 07:00 Temperature 98.5 F Pulse Rate 72 73 Respiratory Rate 16 20 Blood Pressure 105/57 L Pulse Oximetry 97 04/11/18 07:49 04/11/18 08:00 04/11/18 09:00 Temperature Pulse Rate 65 71 72 Respiratory Rate 15 Blood Pressure Pulse Oximetry 96 97 04/11/18 10:00 Temperature Pulse Rate 86 Respiratory Rate Blood Pressure Pulse Oximetry Intake & Output 04/10/18 04/11/18 04/11/18 18:59 06:59 18:59 Intake Total 960 / 960 680 / 680 Output Total 1100 / 1100 550 / 550 Balance -140 / -140 130 / 130 Weight 96.3 kg 93.4 kg Intake: Oral 960 / 960 680 / 680 Output: Urine 1100 / 1100 550 / 550 Other: # Voids 2 0 Date of Last Bowel Movement 04/10/18 04/10/18 04/10/18 # Bowel Movements 1 Weight On Admission 96.3 kg Narrative: GENERAL: NAD and ambulating in the hallway SKIN: Warm and dry. HEAD: Normocephalic. EYES: No scleral icterus. No injection or drainage. NECK: Supple, trachea midline. No JVD or lymphadenopathy. CARDIOVASCULAR: Regular rate and rhythm without murmurs, gallops, or rubs. RESPIRATORY: Breath sounds equal bilaterally. No accessory muscle use. GASTROINTESTINAL: Abdomen soft, non-tender, nondistended. MUSCULOSKELETAL: No cyanosis, or edema. BACK: Nontender without obvious deformity. No CVA tenderness. Results Procedures completed during hospitalization: s/p CABG April 08, 2018 Labs on day of discharge: Labs from last 24 hours 04/11/18 04/11/18 04/10/18 11:12 07:01 22:14 POC Glucose 111 H 121 H 111 H 04/10/18 16:29 POC Glucose 105 Preliminary micro results at discharge 04/09/18 19:35 Sputum Culture - Preliminary Sputum - Expectorated Sputum Heavy growth normal respiratory jose g at 24 hours - Impressions ITS Impressions Venous Doppler Study 04/03/18 00:00 CONCLUSION: 1. The study is negative for bilateral lower extremity deep venous thrombosis. Carotid Doppler Study 04/03/18 13:24 CONCLUSION: 1. Right Internal Carotid Artery: No significant stenosis or atherosclerotic plaque is visualized. 2. Left Internal Carotid Artery: No significant stenosis or atherosclerotic plaque is visualized. Lower Extremity Ultrasound 04/03/18 13:24 CONCLUSION: 1. Venous mapping with saphenous vein measurements described above. 2. No saphenous vein thrombosis noted. Chest X-Ray 04/10/18 00:00 CONCLUSION: Hypoaerated lungs with diffuse interstitial prominence and persistent patchy airspace disease in the left base. No evidence of pneumothorax. Status post removal of mediastinal drain and left chest tube. Discharge Plan - Discharge Disposition Patient Disposition: /Home Health Service - Discharge Condition Condition: Good - Discharge Order Discharge Orders: Discharge Order (Routine); Ordered 04/11/18 Ordered By: Jazmine Estes - Discharge Details Anticipated Discharge Date: 04/11/18 - Physicians Team Attending Provider: Rich Valenzuela Other Providers: Gray Ramos DO ; Marek Malhotra MD ; Blake Wylie MD - Rxs /Orders / Referrals /Forms Prescriptions: New albuterol sulfate [Ventolin HFA] 90 mcg/actuation Hfa Aerosol Inhaler 1 puff INHALATION Q4-6H PRN (Reason: Shortness Of Breath) Qty: 1 RF: 0 amiodarone 200 mg Tablet 200 mg PO Q12HR Qty: 20 RF: 0 aspirin 81 mg Tablet,Delayed Release (Dr/Ec) 81 mg PO DAILY Qty: 30 RF: 3 atorvastatin 40 mg Tablet 40 mg PO HS Qty: 30 RF: 3 clopidogrel [Plavix] 75 mg Tablet 75 mg PO DAILY Qty: 30 RF: 3 ipratropium bromide [Atrovent HFA] 17 mcg/actuation Hfa Aerosol Inhaler 1 puff INHALATION QID Qty: 1 RF: 0 metoprolol tartrate 25 mg Tablet 12.5 mg PO BID Qty: 60 RF: 3 Continue alprazolam [Xanax] 1 mg Tablet 1 mg PO QID PRN (Reason: Anxiety) hydrocodone-acetaminophen 10-325 mg Tablet 1 tab PO QID PRN (Reason: Pain) ibuprofen 800 mg Tablet 800 mg PO BID PRN (Reason: Pain) lisinopril 20 mg Tablet 20 mg PO DAILY montelukast 10 mg Tablet 1 tab PO DAILY ranitidine HCl [Zantac] 150 mg Tablet 150 mg PO BID Discontinued metoprolol tartrate 25 mg Tablet 25 mg PO HS Referrals: Virgie Kiran [Other] - See Instructions (Dr Kiran's office is closed during 12 /24/18-04/13/18. They will re open on 04/14/18. Please call to schedule an appt within 2 weeks of discharge (week of 04/19/18). ) Blake Wylie MD [Physician] - See Instructions ( Your appointment has been scheduled for [05/18/18] at [8:45 am] If you cannot make this appointment, please call the office to reschedule ) Montse Goodrich [ADVANCE RN PRACTITIONER] - See Instructions ( Your appointment has been scheduled for [04/27/18] at [11:30 am] If you cannot make this appointment, please call the office to reschedule ) - Discharge Instructions Patient Printed Instructions: Heart Catheterization (DC), CABG (Coronary Artery Bypass Graft) (DC) Additional Instructions: PREVENA Single Use Negative Wound Therapy System Caregiver Instruction Sheet 1. A Prevena dressing system was applied to the chest incision during surgery , to promote wound healing. It works via a suction device (negative pressure wound therapy) to remove low to moderate levels of exudate (drainage) and infectious materials. We recommend that the device stay in place for up to seven days, from day of surgery. 2. Day of Surgery___04/07/18 Day of Removal ____04/14/17 3. The dressing should only be removed by a health career counselor. Please arrange removal of device to coincide with Home Health visit and or with Nursing staff at Rehab 4. If skin reddening or irritation of skin occurs, or excessive drainage, please notify the Cardiovascular Surgeons office at [phone]. 5. Light showering is permissible; however the pump should be disconnected and placed in safe location, where it will not get wet. The dressing should not be exposed to direct spray or submerged in water. No bath tub / shower only. Ensure the end of the tubing attached to the dressing is facing down so that water does not enter the top of the tube. 6. To remove Prevena dressing: press purple button to turn off device / remove the suction. Then disconnect the tubing from the pump. The fixation strips should be stretched away from the skin and the dressing lifted at one corner and peeled back until it has been fully removed. 7. After removal, it is ok to shower daily using liquid dial soap and clean wash cloth, rinse and pat dry, and leave incision open to air dry. For any concerns regarding Prevena dressing, and or wounds, please contact Alejandra Mccann, patient navigator at [phone] or notify the Cardiovascular Surgeons office at [phone]. Incentive spirometry Q1 hr x 10, while awake, also use acapella device hourly whole awake Sternal Breast Bone Precautions: NO pushing or pulling, ( pt must use sternal pillow to support chest with all activities and with coughing ( takes up to 3 months breast bone to heal ) All females to wear sternal bra , launder as needed Daily incision care: ok to shower daily, no tub bath. Wash all incisions with liquid dial soap, clean wash cloth to each site, rinse and pat dry. Observe for any signs of infection, such as drainage which is dark yellow, [place], green or foul smelling. Immediately report to the surgeon any drainage from the chest incision, or legs, and for any abnormal drainage from the chest tube sites. Notify surgeon if any temp >101.5 degrees F. When specialty dressing removed/ or if you do not have one, continue to shower daily as above, then rinse and pat incision dry and paint with betadine daily x 5 days. Allow steri strips to fall off if you have any. Avoid lotions, creams, salves, oils, etc. for the first month Please see attached forms for additional instructions regarding post Open Heart specialty wound vacuum dressings. ALO or Prevena , Dressing to be removed by Nursing staff on _04/17/17 F/U appointment: as per DC instructions: PCP in 2 weeks, CV surgeon 2 weeks, Car Dealer 3-4 weeks For any questions regarding incisions/ dressing / meds / post op care or above Symptoms, Thursday 8am-5pm Heart & Vascular Surgery Office ( Dr. Malhotra & Dr. Estes), After Hours / Nights (5pm -8am) Weekends and Holidays Please call [facility] Cardiac Intermediate Care Unit (CIC) Charge Nurse
[2018-04-11 12:09] VITALS: BP 94/54; RESP 20; TEMP 98
[2018-04-11 12:30] VITALS: PULSE 75
== END 2018-04-11 14:15 | disposition home health service (06) | DRG 233 ==
LOC: NEDDLT 09:30 → HIMC 09:30 → HCPC 19:15 → HCVI 04-07 12:03 → HCPC 04-08 10:25
PROVIDERS: ADMIT Hospitalist; ATTEND Hospitalist
DX: F41.9 Anxiety disorder, unspecified; M79.7 Fibromyalgia; E66.01 Morbid (severe) obesity due to excess calories; I10 Essential (primary) hypertension; M19.90 Unspecified osteoarthritis, unspecified site; Z91.041 Radiographic dye allergy status; Z68.34 Body mass index [BMI] 34.0-34.9, adult; E78.5 Hyperlipidemia, unspecified; I21.4 Non-ST elevation (NSTEMI) myocardial infarction; M94.0 Chondrocostal junction syndrome [Tietze]; Z82.49 Family history of ischemic heart disease and other diseases of the circulatory system; K59.00 Constipation, unspecified; K21.9 Gastro-esophageal reflux disease without esophagitis; I25.110 Atherosclerotic heart disease of native coronary artery with unstable angina pectoris; J96.00 Acute respiratory failure, unspecified whether with hypoxia or hypercapnia; F17.210 Nicotine dependence, cigarettes, uncomplicated
CPT/HCPCS: 36430; 71010; 71020; 71045; 71046; 80048; 80053; 80061; 81001; 82550; 82552; 82948; 82962; 83036; 83520; 83690; 83735; 83880; 84484; 85025; 85027; 85379; 85610; 85730; 86850; 86900; 86901; 86923; 87070; 87205; 87641; 90774; 90784; 93005; 93306; 93458; 93880; 93965; 93970; 93998; 94002; 94010; 94150; 94640; 94651; 94656; 94664; 94665; 96374; 97110; 97162; 97530; 99152; 99153; 99285; C1768; C1769; C1893; C8952; C9248; J0131; J1200; J1644; J1720; J1817; J1885; J1940; J2250; J2405; J2440; J3010; J3370; J3480; J7040; J7120; P9016; P9045; Q9967